=== PATIENT | male | born 1985 | race Two or more races ===

== ENCOUNTER 2017-01-31 10:16 | Emergency (ER) | payer SELFPAY ==
[2017-01-31 10:25] VITALS: BP 140/80
[2017-01-31] MEDS ORDERED: DIPH/PERTUSS(ACELL)/TETANUS VAC/PF 0.5 ML SYR (>=10YO) IM ONE (10:47)
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
== END 2017-01-31 11:33 | disposition home or self-care (01) ==
LOC: ER 10:16
DX: S61.212A Laceration without foreign body of right middle finger without damage to nail, initial encounter (principal); F17.210 Nicotine dependence, cigarettes, uncomplicated; W26.0XXA Contact with knife, initial encounter
CPT/HCPCS: 90471; 90715; 99282

== ENCOUNTER 2017-03-15 18:44 | Emergency (ER) | payer SELFPAY ==
[2017-03-15 19:17] LABS: ABSOLUTE BASOPHILS # (AUTO) 0.1 10^3/uL (0.0-0.2); ABSOLUTE EOSINOPHILS # (AUTO) 0.5 10^3/uL (0.0-0.6); ABSOLUTE LYMPHOCYTES (AUTO) 3.7 10^3/uL (0.5-4.7); ABSOLUTE MONOCYTES (AUTO) 0.9 10^3/uL (0.1-1.4); ABSOLUTE NEUT (AUTO) 6.6 10^3/uL (1.7-8.2); BASOPHILS % (AUTO) 0.7 % (0-2); EOSINOPHILS % (AUTO) 4.2 % (0-6); HEMATOCRIT 45.2 % (37.9-51.0); HEMOGLOBIN 14.7 g/dL (13.5-17.0); HGB HCT DIFFERENCE -1.1; LYMPHOCYTES % (AUTO) 31.7 % (13-45); MEAN CORPUSCULAR HEMOGLOBIN 29.3 pg (27.0-33.4); MEAN CORPUSCULAR HGB CONC 32.6 g/dL (32.0-36.0); MEAN CORPUSCULAR VOLUME 90 fl (80-97); MONOCYTES % (AUTO) 7.4 % (3-13); RED BLOOD COUNT 5.03 10^6/uL (4.35-5.55); RED CELL DISTRIBUTION WIDTH 13.9 % (11.5-14.0); WHITE BLOOD COUNT 11.7 10^3/uL (4.0-10.5)
[2017-03-15 19:28] LABS: APPEARANCE,URINE SLIGHTLY-CLOUDY; BILIRUBIN,URINE NEGATIVE (NEGATIVE); GLUCOSE, URINE NEGATIVE (NEGATIVE); KETONES,URINE NEGATIVE (NEGATIVE); LEUKOCYTE ESTERASE,URINE NEGATIVE (NEGATIVE); NITRITE,URINE NEGATIVE (NEGATIVE); PROTEIN,URINE 100 mg/dL (NEGATIVE); URINE SPECIFIC GRAVITY 1.026; UROBILINOGEN,URINE NEGATIVE mg/dL (<2.0)
[2017-03-15 19:34] LABS: ALANINE AMINOTRANSFERASE 68 U/L (21-72); ALKALINE PHOSPHATASE 82 U/L (38-126); ANION GAP 14 (5-19); ASPARTATE AMINO TRANSFERASE 30 U/L (17-59); BILIRUBIN,DIRECT 0.3 mg/dL (0.0-0.4); BILIRUBIN,TOTAL 0.6 mg/dL (0.2-1.3); BLOOD UREA NITROGEN 15 mg/dL (7-20); CALCIUM 10.4 mg/dL (8.4-10.2); CARBON DIOXIDE 27 mmol/L (22-30); CHLORIDE 104 mmol/L (98-107); CREATININE RESULT 1.03 mg/dL (0.52-1.25); GLUCOSE 107 mg/dL (75-110); POTASSIUM 4.6 mmol/L (3.6-5.0); TOTAL PROTEIN 8.5 g/dL (6.3-8.2)
[2017-03-15 19:35] LABS: ALCOHOL < 10 mg/dL (NONE DETECTED)
[2017-03-15 19:40] LABS: URINE BARBITURATES SCREEN NEGATIVE; URINE METHADONE SCREEN NEGATIVE; URINE OPIATES LOW NEGATIVE; URINE PHENCYCLIDINE SCREEN NEGATIVE
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
[2017-03-15] MEDS ORDERED: DIAZEPAM 5 MG TABLET PO ONE (20:49)
[2017-03-15] MEDS ORDERED: NICOTINE 21 MG/24 HR PATCH.TD24 TD ONE (20:49)
--- NOTE | 2017-03-15 21:42 | RADIOLOGY REPORT (SQ) ---
EXAM DESCRIPTION: HAND RIGHT 3 VIEWS COMPLETED DATE/TIME: 03/15/2017 9:23 pm REASON FOR STUDY: trauma COMPARISON: None. EXAM PARAMETERS: NUMBER OF VIEWS: Three views. TECHNIQUE: AP, lateral and oblique radiographic images acquired of the right hand. LIMITATIONS: None. FINDINGS: MINERALIZATION: Normal. BONES: No acute fracture or dislocation. No worrisome bone lesions. JOINTS: No effusions. SOFT TISSUES: No soft tissue swelling. No foreign body. OTHER: No other significant finding. IMPRESSION: NEGATIVE STUDY OF THE RIGHT HAND. NO RADIOGRAPHIC EVIDENCE OF ACUTE INJURY. TECHNICAL DOCUMENTATION: JOB ID: [id number] [employer]- All Rights Reserved
[2017-03-15] MEDS ORDERED: HALOPERIDOL 5 MG TABLET PO ONE (23:08)
[2017-03-16] MEDS ORDERED: HALOPERIDOL LACTATE INJ 5 MG/1 ML VIAL IM ONE (00:37)
[2017-03-16] MEDS ORDERED: HALOPERIDOL 5 MG TABLET PO ONE (00:38)
[2017-03-16] MEDS ORDERED: DIPHENHYDRAMINE HCL 50 MG CAPSULE PO ONE (00:39)
[2017-03-16] MEDS ORDERED: IBUPROFEN 600 MG TABLET PO ONE (01:43)
--- NOTE | 2017-03-16 08:05 | EKG REPORT ---
SEVERITY:- OTHERWISE NORMAL ECG - SINUS TACHYCARDIA : Confirmed by: Kenneth Mays MD 16-Mar-2017 08:04:44
--- NOTE | 2017-03-16 09:23 | ER Document Report ---
Doctor's Note Notes: 03/16/17 09:22 As the rounding physician for our psychiatric patients, I have reviewed the chart, vitals, lab work. Patient has been examined and noted to be . I am awaiting mental health in put. 03/16/17 09:[address] Thomas, we agree for discharge as patient is stable
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
[2017-03-16 12:48] VITALS: BP 130/95
== END 2017-03-16 12:43 | disposition home or self-care (01) ==
LOC: ER 18:44
DX: R45.851 Suicidal ideations (principal); S11.91XA Laceration without foreign body of unspecified part of neck, initial encounter; S69.91XA Unspecified injury of right wrist, hand and finger(s), initial encounter; X83.8XXA Intentional self-harm by other specified means, initial encounter; F11.99 Opioid use, unspecified with unspecified opioid-induced disorder; F14.90 Cocaine use, unspecified, uncomplicated
CPT/HCPCS: 36415; 80053; 80307; 81001; 85025; 93005; 93010; 99285

== ENCOUNTER 2017-08-11 21:28 | Emergency (ER) | payer SELFPAY ==
--- NOTE | 2017-08-11 23:51 | ER Document Report ---
ED General - General Mode of Arrival: Ambulatory Information source: Patient TRAVEL OUTSIDE OF THE [place] IN LAST 30 DAYS: No - HPI Onset: Other - I problem started a week and half ago back problem started 3 days ago Onset/Duration: Gradual Quality of pain: Pressure, Sharp - Back pain is sharp eye pain is pressure Severity: Moderate Pain Level: 3 Associated symptoms: Other - Low back pain decreased visual acuity blurry vision pain to the left eye Exacerbated by: Sitting, Movement, Walking Relieved by: Denies Similar symptoms previously: Yes - He has to the back pain noted to the visual problems Recently seen / treated by doctor: No - General Chief Complaint: Eye Problem Stated Complaint: LEFT EYE PAIN Time Seen by Provider: 08/11/17 23:12 Notes: 32-year-old male presents to ED for complaint of low back pain and visual problems. He states about a week and a half ago he started seeing black dots. He states he did not go to a doctor or have it checked out. He states then it slowly progressed until now his visual acuity has decreased greatly and he has a white film on his eye. He states everything is very blurry. He states he has no history of any visual problems. His other complaint is low back pain he states he fell about 3 days ago and is had pain just below his surgical incision ever since he fell. He states that he feels like the very bottom of his back is broken. States he has not been to see a physician for that problem either. (RADHA SAAB) - Related Data Allergies/Adverse Reactions: No Known Allergies Allergy (Verified 08/11/17 21:35) Past Medical History - General Information source: Patient - Social History Smoking Status: Current Every Day Smoker Cigarette use (# per day): Yes - Pack per day Chew tobacco use (# tins/day): No Smoking Education Provided: Yes - Less than 2 minutes Frequency of alcohol use: None Drug Abuse: Marijuana Occupation: [employer] Lives with: Parents Family History: Arthritis, Hyperlipidemia, Hypertension. denies: CAD, COPD, CVA , DM, Malignancy, Thyroid Disfunction Patient has suicidal ideation: No Patient has homicidal ideation: No - Past Medical History Cardiac Medical History: Reports: None Pulmonary Medical History: Reports: Hx Asthma EENT Medical History: Reports: None Neurological Medical History: Reports: None Endocrine Medical History: Reports: None Renal/ Medical History: Reports: None Malignancy Medical History: Reports None GI Medical History: Reports: None Musculoskeltal Medical History: Reports Hx Arthritis, Reports Hx Musculoskeletal Deformity, Reports Hx Musculoskeletal Trauma Skin Medical History: Reports None Psychiatric Medical History: Reports: Hx Anxiety, Hx Bipolar Disorder, Hx Depression Traumatic Medical History: Reports: None Infectious Medical History: Reports: None Past Surgical History: Reports: Hx Orthopedic Surgery - L4 L5 FUSION 2010 - Immunizations Immunizations up to date: Yes Hx Diphtheria, Pertussis, Tetanus Vaccination: Yes - unknown Review of Systems - Review of Systems Constitutional: No symptoms reported EENT: Eye pain - States he was seeing black dots now he has blurry vision with a white film to his left eye, Blurred vision Cardiovascular: No symptoms reported Respiratory: No symptoms reported Gastrointestinal: No symptoms reported Genitourinary: No symptoms reported Male Genitourinary: No symptoms reported Musculoskeletal: Back pain, Muscle pain, Muscle stiffness Skin: No symptoms reported Hematologic/Lymphatic: No symptoms reported Neurological/Psychological: No symptoms reported -: Yes All other systems reviewed and negative Physical Exam - Vital signs Interpretation: Normal - General General appearance: Appears well, Alert - HEENT Head: Normocephalic, Atraumatic Eyes: Normal Cornea: Other - White down across the cornea and pupil. No: Corneal ulcer, Dendrite, Flourescein stain uptake Eyelashes: Normal Pupils: PERRL Ears: Normal External canal: Normal Tympanic membrane: Normal Sinus: Normal Nasal: Normal Mouth/Lips: Normal Mucous membranes: Normal Pharynx: Normal Neck: Normal - Respiratory Respiratory status: No respiratory distress Chest status: Nontender Breath sounds: Normal Chest palpation: Normal - Cardiovascular Rhythm: Regular Heart sounds: Normal auscultation Murmur: No - Abdominal Inspection: Normal Distension: No distension Bowel sounds: Normal Tenderness: Nontender Organomegaly: No organomegaly - Back Back: Normal, Tender, Vertebra tenderness, Scars. No: Deformity/step-off, CVA tenderness, Scoliosis, Wounds - Extremities General upper extremity: Normal inspection, Nontender, Normal color, Normal ROM , Normal temperature General lower extremity: Normal inspection, Nontender, Normal color, Normal ROM , Normal temperature, Normal weight bearing. No: Georgie's sign - Neurological Neuro grossly intact: Yes Cognition: Normal Orientation: AAOx4 [place] Coma Scale Eye Opening: Spontaneous Chrissy Coma Scale Verbal: Oriented Chrissy Coma Scale Motor: Obeys Commands [place] Coma Scale Total: 15 Speech: Normal Motor strength normal: LUE, RUE, LLE, RLE Sensory: Normal - Psychological Associated symptoms: Normal affect, Normal mood - Skin Skin Temperature: Warm Skin Moisture: Dry Skin Color: Normal - Vital signs Vitals: Temp Pulse Resp BP Pulse Ox 98.3 F 96 18 134/99 H 98 08/11/17 21:35 08/11/17 21:35 08/11/17 21:35 08/11/17 21:35 08/11/17 21:35 Course - Diagnostic Test Radiology reviewed: Image reviewed, Reports reviewed - Re-evaluation Re-evalutation: 08/12/17 00:22 Patient is well-appearing. The a nurse practitioner asked me to evaluate patient's because of the patient's eye findings. Patient has been hypopyon on exam. This is consistent with eye infection. I did do fluorescein staining this patient does occasionally wear contact lenses. This did not show any ulceration or forcing uptake. I did do a slit-lamp examination. I do not see any clouding of the people. I do not see any dendritic type lesions. I will place patient Besivance. I informed the patient the importance of following up with missile pad mechanic as soon as possible. Dr. fofana is personnel psychologist. We will give him Dr. Mosley system to follow-up with. Informed to call Dr. Mosley for seeing the morning inform him he was seen in the ER and that he needs close follow-up. Patient encouraged to return to ER if he has any visual changes, worsening redness or swelling to his eye, or if he has any further concerns. 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 He says some grease did fall into his eye recently and this most likely was because some of his infection. She is also being seen by the nurse practitioner for back pain. She is continuing the workup of his back pain. Patient was able stand and walk in the room when I entered. Dictation of this chart was performed using voice recognition software; therefore, there may be some unintended grammatical errors. ([facility] FARRELL) - Vital Signs Vital signs: Temp Pulse Resp BP Pulse Ox 98.3 F 78 18 139/78 H 99 08/11/17 21:35 08/12/17 01:04 08/12/17 01:04 08/12/17 01:04 08/12/17 01:04 Discharge - Discharge Clinical Impression: Back pain Qualifiers: Back pain location: low back pain Chronicity: acute Back pain laterality: bilateral Sciatica presence: without sciatica Qualified Code(s): M54.5 - Low back pain Eye infection Qualifiers: Laterality: left Qualified Code(s): H44.002 - Unspecified purulent endophthalmitis, left eye Condition: Stable Disposition: HOME, SELF-CARE Additional Instructions: LOW BACK PAIN: Three out of every four people will have an episode of disabling back pain during their lifetime. Most commonly the pain is due to straining of the muscles and ligaments in the low back. Usual treatment includes: (1) Rest on a firm surface. Avoid lying on your stomach. (2) Ice pack the painful area. After a few days, gentle heat may be used intermittently to relax the area, or ice packs can be continued. (3) Medication may be needed -- muscle relaxers and antiinflammatory medicines are commonly used. (4) As the back improves, exercises are prescribed to strengthen the back and abdominal muscles. Your doctor will advise you on the proper care for your back at each stage in your recovery. You may be better in a few days -- or healing may take several weeks. If new symptoms of a "herniated disc" (radiation of pain, numbness, or tingling down the back of the leg or weakness in the leg) occur, you should be re-examined. Further testing may be necessary. Eye infection: You have an infection in your eye, "you have a bacterial infection in your eye needs to eyedrops 3 times a day. Please be sure to follow-up with the missile pad mechanic first thing in the morning to schedule the earliest appointment possible to have your eyes reevaluated. If you wear contact lenses, don't put them in your eyes until the infection is cleared and you are no longer using the drops (unless your doctor advises you otherwise). Should you develop increasing eye pain, severe swelling, decreased vision, or fail to improve as expected, please return for re-examination. EYEDROP USE: Eyedrops are most easily applied by pulling down on the cheek just below the lower eyelid. The lower lid will pop out to form a pouch into which you can drop the medicine. A small brief sting is not unusual, especially if the eye is reddened and irritated already. Use the drops exactly as recommended. You should see the doctor at once if there is a decrease in vision, swelling of the eye, or an increase in discomfort. ANTIBIOTIC THERAPY: You have been given an antibiotic prescription. It's important that you take all the medication, unless instructed otherwise by your physician. Failure to complete the entire course can result in relapse of your condition. Common side effects of antibiotics include nausea, intestinal cramping, or diarrhea. Women may develop vaginal yeast infections, and babies can get yeast (thrush) in the mouth following the use of antibiotics. Contact your physician if you develop significant side effects from this medication. Allergy to this antibiotic can result in hives, wheezing, faintness, or itching. If symptoms of allergy occur, stop the medication and call the doctor. Anti-Inflammatory Medication You have received a prescription for an antiinflammatory agent. This is an excellent, safe drug for pain control. In addition, it has potent antiinflammatory effects which are beneficial, especially in the treatment of injuries, arthritis, or tendonitis. It's best to take this medicine with food. Persons with ulcer disease or allergy to aspirin should notify their physician of this before taking this drug. Take the medication exactly as prescribed. Don't take additional doses unless instructed to do so by your doctor. If you develop wheezing, shortness of breath, hives, faintness, stomach pain, vomiting, or dark black stools, return for re-evaluation at once. Stretching Exercises for the Back The physician has recommended that you begin stretching exercises for your back. These are often used even while the back is painful. However, you should notify the physician if the activities seem to increase your pain. PELVIC TILT: Lie flat on your back with knees bent. Tighten your stomach and buttock muscles so it flattens your lower back against the floor. Hold 10 seconds. Repeat 10 times, twice daily. KNEE RAISE: Lying on the back with knees bent, raise one knee to your chest, then the other. Hold both knees against the chest 10 seconds, then lower one knee at a time. Repeat 10 times, twice daily. PARTIAL TRUNK RAISE: Lie face down, arms at your sides. Keeping your waist on the floor, use your arms raise your chest up. Support yourself on your elbows for 30 seconds. Repeat twice daily, increasing the time to two minutes as you recover. Oral Narcotic Medication You have been given a [place] dispense pack for pain control. This medication is a narcotic. It's best taken with food, as nausea can result if taken on an empty stomach. Don't operate machinery or drive within six hours of taking this medication. Do not combine this medicine with alcohol, or with any medication which can cause sedation (such as cold tablets or sleeping pills) unless you get permission from the physician. Narcotics tend to cause constipation. If possible, drink plenty of fluids and eat a diet high in fiber and fruits. ICE PACKS: Apply ice packs frequently against the painful area. Many different schedules are recommended, such as "20 minutes on, 20 minutes off" or "one hour ice, two hours rest." If you need to work, you may need to go longer between ice treatments. You should plan to have the area ice packed AT LEAST one fourth of the time. The ice should be applied over the wrap, tape, or splint, or over a layer of cloth -- not directly against the skin. Some ice bags have a built-in cloth and can be put directly on the skin. WARM PACKS: After approximately two days, apply gentle heat (such as a heating pad or hot water bottle) for about 20 to 30 minutes about every two hours -- at least four times daily. Warmth and elevation will help you make a more rapid recovery , and will ease the pain considerably. Do not use HOT heat, and never apply heat for longer than 30 minutes. The continuous heat can invisibly damage skin and muscles -- even when no burn is seen on the surface. Damaged muscles can make you MORE sore. FOLLOW-UP CARE: If you have been referred to a physician for follow-up care, call the physician s office for an appointment as you were instructed or within the next two days. If you experience worsening or a significant change in your symptoms, notify the physician immediately or return to the Emergency Department at any time for re-evaluation. Prescriptions: Besifloxacin HCl [Besivance Drops] 1 drop LFT_EYE TID #1 bottle Forms: Elevated Blood Pressure, Smoking Cessation Education, Return to Work Referrals: MÓNICA MOSLEY MD [ACTIVE STAFF] - 08/12/17
[2017-08-12] MEDS ORDERED: TETRACAINE HCL 0.5% OPH SOLN 2 ML OS ONE (00:05)
[2017-08-12] MEDS ORDERED: TETRACAINE HCL 0.5% OPH SOLN 2 ML ONE (00:07)
[2017-08-12] MEDS ORDERED: BESIFLOXACIN HCL 0.6% OPH SUSP 5 ML BOTTLE OS ONE (00:20)
--- NOTE | 2017-08-12 00:24 | RADIOLOGY REPORT (SQ) ---
EXAM DESCRIPTION: L SPINE WHOLE CLINICAL HISTORY: 32 years, Male, pain lower back since fall 3 days ago COMPARISON: None. NUMBER OF VIEWS: Five. TECHNIQUE: AP, lateral, and obliques. LIMITATIONS: None. FINDINGS: L4-S1 posterior hardware fusion and intervertebral disc replacement. Normal alignment and curvature. Minimal apparent T12 anterior vertebral wedging unknown chronicity. IMPRESSION: As above. 2010 [employer]- All Rights Reserved
[2017-08-12] MEDS ORDERED: HYDROCODONE/ACETAMINOPHEN 5-325 MG 6 TAB/DSPK PO PRN (00:54)
[2017-08-12 01:05] VITALS: BP 139/78
== END 2017-08-12 01:04 | disposition home or self-care (01) ==
LOC: ER 21:28
DX: H44.002 Unspecified purulent endophthalmitis, left eye (principal); M54.5 Low back pain; H57.12 Ocular pain, left eye; F17.210 Nicotine dependence, cigarettes, uncomplicated
CPT/HCPCS: 72110; 99283

== ENCOUNTER 2017-11-24 08:58 | Emergency (ER) | payer SELFPAY ==
[2017-11-24 09:19] VITALS: BP 128/90
--- NOTE | 2017-11-24 10:48 | RADIOLOGY REPORT (SQ) ---
EXAM DESCRIPTION: L SPINE 2 VIEWS COMPLETED DATE/TIME: 11/24/2017 10:14 am REASON FOR STUDY: low back pain COMPARISON: 08/11/2017 lumbar spine five views, 09/20/2008 lumbar spine five views NUMBER OF VIEWS: Two views. TECHNIQUE: AP and lateral radiographic images acquired of the lumbar spine. LIMITATIONS: None. FINDINGS: MINERALIZATION: Normal. SEGMENTATION: There are short ribs/long transverse processes at the T12 level. Most inferior well-de veloped disc space is L5-S1 which is fused with hardware. ALIGNMENT: Normal. VERTEBRAE: Maintained height. No fracture or worrisome bone lesion. DISCS: Post discectomy and fusion with disc space prosthesis, transpedicular screws and dorsal fixati on plates at L4-5 and L5-S1. Old bilateral laminectomy defects at these levels. Mild disc space los s of height at L3-4. POSTERIOR ELEMENTS: Bilateral laminectomy defects at the L4-5 and L5-S1 level HARDWARE: Fusion hardware at L4-5 and L5-S1 PARASPINAL SOFT TISSUES: Normal. PELVIS: Not included in the field of view OTHER: No other significant finding. IMPRESSION: No acute fracture or malalignment. Mild disc space loss of height at L3-4. Post fusion at L4-5 and L5-S1 TECHNICAL DOCUMENTATION: JOB ID: [id number] [employer]- All Rights Reserved Reading location - IP/workstation name: [email or web address]
[2017-11-24] MEDS ORDERED: CYCLOBENZAPRINE HCL 10 MG TABLET PO ONE (10:50)
[2017-11-24] MEDS ORDERED: DEXAMETHASONE SOD PHOS INJ 10 MG/1 ML VIAL IM ONE (10:50)
[2017-11-24] MEDS ORDERED: KETOROLAC TROMETHAMINE 60 MG/2 ML SDV IM ONE (10:50)
[2017-11-24] MEDS ORDERED: LIDOCAINE 5% (700 MG) TRANSDERMAL ADH..PATCH TP ONE (10:50)
--- NOTE | 2017-11-24 10:52 | ER Document Report ---
ED Neck/Back Problem - General Chief Complaint: Back Pain Stated Complaint: LOWER BACK PAIN Time Seen by Provider: 11/24/17 09:50 Mode of Arrival: Ambulatory Information source: Patient Notes: 32-year-old male presented to ED for complaint of back pain for week radiating to the right side legs. History of lumbar fusion 2010. States that at times he feels like he has got elephant sitting on his back. No incontinence, no loss of control of bowel or bladder, no loss control of the lower extremities, no loss of sensation to the lower extremities, no saddle anesthesia. Able to walk with the even steady gait once he has stood up. TRAVEL OUTSIDE OF THE [place] IN LAST 30 DAYS: No - HPI Patient complains to provider of: Lower back Onset: Last week Where: Home, Indoors Timing: Still present Quality of pain: Achy, Sharp Severity: Severe Pain Level: 5 Context: Bending Recent injury: No Associated symptoms: Like prior neck/back pain, Radiation to leg, Lower back pain. denies: Incontinence, Motor loss, Numbness/tingling, Sensory loss, Sweaty , Unable to urinate, Upper back pain Exacerbated by: Movement of trunk, Sitting position Relieved by: Nothing Similar symptoms previously: Yes Recently seen / treated by doctor: No - Related Data Allergies/Adverse Reactions: No Known Allergies Allergy (Verified 11/24/17 08:59) Past Medical History - General Information source: Patient - Social History Smoking Status: Current Every Day Smoker Cigarette use (# per day): Yes Chew tobacco use (# tins/day): No Smoking Education Provided: Yes - 4 minutes Frequency of alcohol use: None Drug Abuse: None Lives with: Family Family History: Arthritis, Hyperlipidemia, Hypertension. denies: CAD, COPD, CVA , DM, Malignancy, Thyroid Disfunction Patient has suicidal ideation: No Patient has homicidal ideation: No - Past Medical History Cardiac Medical History: Reports: None Pulmonary Medical History: Reports: Hx Asthma EENT Medical History: Reports: None Neurological Medical History: Reports: None Endocrine Medical History: Reports: None Renal/ Medical History: Reports: None Malignancy Medical History: Reports None GI Medical History: Reports: None Musculoskeltal Medical History: Reports Hx Arthritis, Reports Hx Musculoskeletal Deformity, Reports Hx Musculoskeletal Trauma Skin Medical History: Reports None Psychiatric Medical History: Reports: Hx Anxiety, Hx Bipolar Disorder, Hx Depression Traumatic Medical History: Reports: None Infectious Medical History: Reports: None Past Surgical History: Reports: Hx Orthopedic Surgery - L4 L5 FUSION 2011 - Immunizations Immunizations up to date: Yes Hx Diphtheria, Pertussis, Tetanus Vaccination: Yes - unknown Review of Systems - Review of Systems Constitutional: No symptoms reported EENT: No symptoms reported Cardiovascular: No symptoms reported Respiratory: No symptoms reported Gastrointestinal: No symptoms reported. denies: Diarrhea, Constipation, Fecal incontinence Genitourinary: No symptoms reported. denies: Incontinence, Retention Male Genitourinary: No symptoms reported Musculoskeletal: No symptoms reported Skin: No symptoms reported Hematologic/Lymphatic: No symptoms reported Neurological/Psychological: No symptoms reported -: Yes All other systems reviewed and negative Physical Exam - Vital signs Vitals: Temp Pulse Resp BP Pulse Ox 98.0 F 83 20 128/90 H 99 11/24/17 09:18 11/24/17 09:18 11/24/17 09:18 11/24/17 09:18 11/24/17 09:18 Interpretation: Normal - General General appearance: Appears well, Alert - HEENT Head: Normocephalic, Atraumatic Eyes: Normal Pupils: PERRL - Respiratory Respiratory status: No respiratory distress Chest status: Nontender Breath sounds: Normal Chest palpation: Normal - Cardiovascular Rhythm: Regular Heart sounds: Normal auscultation Murmur: No - Abdominal Inspection: Normal Distension: No distension Bowel sounds: Normal Tenderness: Nontender Organomegaly: No organomegaly - Back Back: Normal, Tender, Scars. No: Deformity/step-off, CVA tenderness, Vertebra tenderness, Scoliosis, Wounds - Extremities General upper extremity: Normal inspection, Nontender, Normal color, Normal ROM , Normal temperature General lower extremity: Normal inspection, Nontender, Normal color, Normal ROM , Normal temperature, Normal weight bearing. No: Georgie's sign - Neurological Neuro grossly intact: Yes Cognition: Normal Orientation: AAOx4 Chrissy Coma Scale Eye Opening: Spontaneous [place] Coma Scale Verbal: Oriented [place] Coma Scale Motor: Obeys Commands [place] Coma Scale Total: 15 Speech: Normal Motor strength normal: LUE, RUE, LLE, RLE Sensory: Normal - Psychological Associated symptoms: Normal affect, Normal mood - Skin Skin Temperature: Warm Skin Moisture: Dry Skin Color: Normal Course - Re-evaluation Re-evalutation: 11/24/17 21:57 X-ray discussed with patient. Patient was treated with Toradol Decadron Lidoderm Flexeril. Patient was instructed to stop his marijuana and cocaine as this was not helping his back pain. Patient was also instructed to follow-up with his primary doctor and get a back specialist. - Vital Signs Vital signs: Temp Pulse Resp BP Pulse Ox 98.0 F 83 20 128/90 H 99 11/24/17 09:18 11/24/17 09:18 11/24/17 09:18 11/24/17 09:18 11/24/17 09:18 - Diagnostic Test Radiology reviewed: Image reviewed, Reports reviewed Discharge - Discharge Clinical Impression: Low back pain Qualifiers: Chronicity: acute Back pain laterality: left Sciatica presence: with sciatica Sciatica laterality: sciatica of left side Qualified Code(s): M54.42 - Lumbago with sciatica, left side Condition: Stable Disposition: HOME, SELF-CARE Additional Instructions: LOW BACK PAIN: Three out of every four people will have an episode of disabling back pain during their lifetime. Most commonly the pain is due to straining of the muscles and ligaments in the low back. Usual treatment includes: (1) Rest on a firm surface. Avoid lying on your stomach. (2) Ice pack the painful area. After a few days, gentle heat may be used intermittently to relax the area, or ice packs can be continued. (3) Medication may be needed -- muscle relaxers and antiinflammatory medicines are commonly used. (4) As the back improves, exercises are prescribed to strengthen the back and abdominal muscles. Your doctor will advise you on the proper care for your back at each stage in your recovery. You may be better in a few days -- or healing may take several weeks. If new symptoms of a "herniated disc" (radiation of pain, numbness, or tingling down the back of the leg or weakness in the leg) occur, you should be re-examined. Further testing may be necessary. MUSCLE RELAXERS: Muscle relaxing medications are usually prescribed for acute muscle spasm or injury to the neck and back. They are often combined with antiinflammatory pain medication for increased relief. You may stop the muscle relaxer when the pain and stiffness have improved. Start the medication again if spasms recur. Muscle relaxers may cause drowsiness, especially with the first dose. Do not operate machinery or drive while under the effects of the medication. Most muscle relaxers last up to 24 hours. Do not combine the medication with alcohol. Stretching Exercises for the Back The physician has recommended that you begin stretching exercises for your back. These are often used even while the back is painful. However, you should notify the physician if the activities seem to increase your pain. PELVIC TILT: Lie flat on your back with knees bent. Tighten your stomach and buttock muscles so it flattens your lower back against the floor. Hold 10 seconds. Repeat 10 times, twice daily. KNEE RAISE: Lying on the back with knees bent, raise one knee to your chest, then the other. Hold both knees against the chest 10 seconds, then lower one knee at a time. Repeat 10 times, twice daily. PARTIAL TRUNK RAISE: Lie face down, arms at your sides. Keeping your waist on the floor, use your arms raise your chest up. Support yourself on your elbows for 30 seconds. Repeat twice daily, increasing the time to two minutes as you recover. Toradol Injection You have been given an injection of ketorolac tromethamine (Toradol). This is an excellent, safe drug for pain control. It also has potent antiinflammatory action. You should have significant pain relief within about one hour. Toradol is not addicting and is non-sedating. It does not interfere with driving or work. Call or return if you develop itching, hives, shortness of breath, or rash. STEROID MEDICATION: You have been given an injection of medicine of the cortisone/steroid class. This medication is used to control inflammation or allergy. It is often continued as a pill for a short period of time, until the acute process subsides. There are usually no side effects from short-term use of cortisone-like medications. Some persons feel an increased sense of well-being and are not sleepy at bedtime. Long-term use of cortisone medications is best avoided, unless required for a severe condition. If your condition does not remit, or relapses after the course of corticosteroid medication, you should consult your physician. ICE PACKS: Apply ice packs frequently against the painful area. Many different schedules are recommended, such as "20 minutes on, 20 minutes off" or "one hour ice, two hours rest." If you need to work, you may need to go longer between ice treatments. You should plan to have the area ice packed AT LEAST one fourth of the time. The ice should be applied over the wrap, tape, or splint, or over a layer of cloth -- not directly against the skin. Some ice bags have a built-in cloth and can be put directly on the skin. WARM PACKS: After approximately two days, apply gentle heat (such as a heating pad or hot water bottle) for about 20 to 30 minutes about every two hours -- at least four times daily. Warmth and elevation will help you make a more rapid recovery , and will ease the pain considerably. Do not use HOT heat, and never apply heat for longer than 30 minutes. The continuous heat can invisibly damage skin and muscles -- even when no burn is seen on the surface. Damaged muscles can make you MORE sore. FOLLOW-UP CARE: If you have been referred to a physician for follow-up care, call the physician s office for an appointment as you were instructed or within the next two days. If you experience worsening or a significant change in your symptoms, notify the physician immediately or return to the Emergency Department at any time for re-evaluation. Prescriptions: Cyclobenzaprine HCl [Flexeril 10 mg Tablet] 10 mg PO TIDP PRN #15 tab PRN Reason: Prednisone 10 mg PO DAILY #21 tablet Forms: Elevated Blood Pressure, Smoking Cessation Education, Return to Work
[2017-11-24 11:31] LABS: APPEARANCE,URINE CLEAR; BILIRUBIN,URINE NEGATIVE (NEGATIVE); COLOR,URINE STRAW; GLUCOSE, URINE NEGATIVE (NEGATIVE); KETONES,URINE NEGATIVE (NEGATIVE); LEUKOCYTE ESTERASE,URINE NEGATIVE (NEGATIVE); NITRITE,URINE NEGATIVE (NEGATIVE); PROTEIN,URINE NEGATIVE (NEGATIVE); URINE SPECIFIC GRAVITY 1.008; UROBILINOGEN,URINE NEGATIVE mg/dL (<2.0)
[2017-11-24 11:45] LABS: URINE AMPHETAMINES SCREEN NEGATIVE; URINE BARBITURATES SCREEN NEGATIVE; URINE BENZODIAZEPINES SCREEN NEGATIVE; URINE COCAINE SCREEN UNCONFIRMED POSITIVE; URINE MARIJUANA (THC) SCREEN UNCONFIRMED POSITIVE; URINE METHADONE SCREEN NEGATIVE; URINE PHENCYCLIDINE SCREEN NEGATIVE
== END 2017-11-24 12:25 | disposition home or self-care (01) ==
LOC: ER 08:58
DX: M54.42 Lumbago with sciatica, left side (principal); Z98.1 Arthrodesis status; J45.909 Unspecified asthma, uncomplicated; F17.210 Nicotine dependence, cigarettes, uncomplicated; Z71.6 Tobacco abuse counseling
CPT/HCPCS: 99283; 96372; 81001; 80307; 72100; J1885; J1100

== ENCOUNTER 2018-01-23 14:26 | Emergency (ER) | payer OTHER ==
[2018-01-23] MEDS ORDERED: KETOROLAC TROMETHAMINE 60 MG/2 ML SDV IM ONE (15:19)
[2018-01-23] MEDS ORDERED: DEXAMETHASONE SOD PHOS INJ 10 MG/1 ML VIAL IM ONE (15:19)
[2018-01-23] MEDS ORDERED: LORAZEPAM INJ 2 MG/1 ML VIAL IM ONE (16:56)
[2018-01-23] MEDS ORDERED: HYDROMORPHONE HCL INJ/PF 2 MG/ML AMPULE IV ONE ×2 (18:08→21:44)
--- NOTE | 2018-01-23 18:08 | ER Document Report ---
ED General - General Chief Complaint: Leg Pain Stated Complaint: BACK PAIN Time Seen by Provider: 01/23/18 15:12 Mode of Arrival: Medic Information source: Patient, Law Enforcement, Emergency Med Personnel Notes: 32-year-old male history of L4-L5 L5-S1 fusion presents with complaints of left leg weakness numbness and low back pain. Patient notes the back pain has been ongoing for the past week worsened today. Patient denies any trauma denies any loss of bowel or bladder function does admit to weakness in the leg TRAVEL OUTSIDE OF THE [place] IN LAST 30 DAYS: No - HPI Onset: Last week Onset/Duration: Persistent Quality of pain: Sharp Severity: Moderate Pain Level: 2 Associated symptoms: Body/muscle aches Exacerbated by: Movement Relieved by: Denies Similar symptoms previously: Yes Recently seen / treated by doctor: No - Related Data Allergies/Adverse Reactions: No Known Allergies Allergy (Verified 01/23/18 14:35) Past Medical History - Social History Smoking Status: Current Every Day Smoker Cigarette use (# per day): Yes Chew tobacco use (# tins/day): No Smoking Education Provided: No Frequency of alcohol use: None Drug Abuse: None Family History: Arthritis, Hyperlipidemia, Hypertension. denies: CAD, COPD, CVA , DM, Malignancy, Thyroid Disfunction Patient has suicidal ideation: No Patient has homicidal ideation: No Pulmonary Medical History: Reports: Hx Asthma Renal/ Medical History: Denies: Hx Peritoneal Dialysis Musculoskeltal Medical History: Reports Hx Arthritis, Reports Hx Musculoskeletal Deformity, Reports Hx Musculoskeletal Trauma Psychiatric Medical History: Reports: Hx Anxiety, Hx Bipolar Disorder, Hx Depression Past Surgical History: Reports: Hx Orthopedic Surgery - L4 L5 FUSION 2010 - Immunizations Immunizations up to date: Yes Hx Diphtheria, Pertussis, Tetanus Vaccination: Yes - unknown Review of Systems - Review of Systems Notes: REVIEW OF SYSTEMS: CONSTITUTIONAL : Denies fever, chills, or sweats. Denies recent illness. EENT: Denies eye, ear, throat, or mouth pain or symptoms. Denies nasal or sinus congestion or discharge. Denies throat, tongue, or mouth swelling or difficulty swallowing. CARDIOVASCULAR: Denies chest pain. Denies palpitations or racing or irregular heart beat. Denies ankle edema. RESPIRATORY: Denies cough, cold, or chest congestion. Denies shortness of breath, difficulty breathing, or wheezing. GASTROINTESTINAL: Denies abdominal pain or distention. Denies nausea, vomiting , or diarrhea. Denies blood in vomitus, stools, or per rectum. Denies black, tarry stools. Denies constipation. GENITOURINARY: Denies difficulty urinating, painful urination, burning, frequency, blood in urine, or discharge. MUSCULOSKELETAL: Admits to left leg pain back pain numbness SKIN: Denies rash, lesions or sores. HEMATOLOGIC : Denies easy bruising or bleeding. LYMPHATIC: Denies swollen, enlarged glands. NEUROLOGICAL: Admits to weakness in the left leg PSYCHIATRIC: Denies anxiety or stress. Denies depression, suicidal ideation, or homicidal ideation. ALL OTHER SYSTEMS REVIEWED AND NEGATIVE. Dictation was performed using [employer] voice recognition software PHYSICAL EXAMINATION: GENERAL: Well-appearing, well-nourished and in mild distress. HEAD: Atraumatic, normocephalic. EYES: Pupils equal round and reactive to light, extraocular movements intact, sclera anicteric, conjunctiva are normal. ENT: Nares patent, oropharynx clear without exudates. Moist mucous membranes. NECK: Normal range of motion, supple without lymphadenopathy LUNGS: Breath sounds clear to auscultation bilaterally and equal. No wheezes rales or rhonchi. HEART: Regular rate and rhythm without murmurs ABDOMEN: Soft, nontender, nondistended abdomen. No guarding, no rebound. No masses appreciated. Musculoskeletal: Tenderness upon palpation of the L3-L4-L5 region. NEUROLOGICAL: Weakness noted in the left lower extremity mild PSYCH: Normal mood, normal affect. SKIN: Warm, Dry, normal turgor, no rashes or lesions noted. Physical Exam - Vital signs Vitals: Temp Pulse Resp BP Pulse Ox 97.9 F 92 16 103/77 100 01/23/18 14:34 01/23/18 14:34 01/23/18 14:34 01/23/18 14:34 01/23/18 14:34 Course - Re-evaluation Re-evalutation: Patient's pain symptoms did not improve with symptomatic medication therefore MRI has been ordered 01/23/18 18:08 [place] paged for transfer and other findings concerning for cord compression 01/23/18 18:13 patient mother talked to and explained 01/23/18 18:27 Dr Wood accepts patient for transfer 01/23/18 18:58 01/23/18 19:15 Dr Wood wants patient admitted to medicine as there is hx of iv heroin use concern for discitis 01/23/18 19:16 01/23/18 19:54 Dr Sharma hospitalist [facility] accepts they do not want antibiotics given 01/23/18 22:22 Patient given another dose of pain control 01/23/18 22:23 - Vital Signs Vital signs: Temp Pulse Resp BP Pulse Ox 98.0 F 133 H 18 133/87 H 99 01/23/18 21:49 01/23/18 21:49 01/23/18 21:49 01/23/18 21:49 01/23/18 21:49 - Laboratory Result Diagrams: 01/23/18 18:50 01/23/18 18:50 Laboratory results interpreted by me: 01/23/18 01/23/18 18:50 18:50 WBC 12.2 H Seg Neutrophils % 88.4 H Lymphocytes % 9.8 L Monocytes % 1.2 L Absolute Neutrophils 10.8 H Glucose 131 H Calcium 10.7 H Total Protein 8.6 H - Diagnostic Test Radiology reviewed: Image reviewed - MRI lumbar spine notes cord compression, Reports reviewed Discharge - Discharge Clinical Impression: Spinal cord compression Condition: Stable Disposition: [facility]
--- NOTE | 2018-01-23 18:10 | RADIOLOGY REPORT (SQ) ---
EXAM DESCRIPTION: MRI LUMBAR SPINE WITHOUT COMPLETED DATE/TIME: 01/23/2018 5:41 pm REASON FOR STUDY: low back pain COMPARISON: None. TECHNIQUE: Sagittal and Axial imaging includes T1, T2, STIR and gradient echo sequences. Coronal T2/ HASTE imaging. LIMITATIONS: None. FINDINGS: VISUALIZED UPPER ABDOMEN: Limited evaluation. No acute or suspicious findings suggested. SEGMENTATION: No transitional anatomy. The lowest well-developed disc space is labeled L5-S1. ALIGNMENT: Anatomic. VERTEBRAE: Intact. BONE MARROW: Significant bone marrow edema involving the L3 and L4 vertebral bodies. Marrow signal i s otherwise normal. DISC SIGNAL: Abnormal disc signal at the L3 level. POSTERIOR ELEMENTS: Status post laminectomy from the L4 through S1 levels. Otherwise intact. HARDWARE: Posterior interbody fusion hardware at the L4 through S1 levels. No gross hardware complic ation. CORD AND CONUS: Normal in size and signal intensity. Conus at the appropriate level. SOFT TISSUES: No aortic aneurysm seen. No bulky retroperitoneal adenopathy or mass. No paraspinal mas s or fluid. L1-L2: No significant spinal stenosis or exit foraminal stenosis. L2-L3: No significant spinal stenosis or exit foraminal stenosis. L3-L4: High-grade spinal canal stenosis and severe bilateral neural foraminal narrowing secondary to combination of extruded disc material, ligamentum flavum hypertrophy, and facet arthropathy. L4-L5: No significant residual narrowing identified. L5-S1: No significant residual narrowing identified. LOWER THORACIC: Incompletely imaged. No stenosis seen. SACRUM: Visualized upper sacrum intact. OTHER: No other significant findings. IMPRESSION: POSTOPERATIVE CHANGE EXTENDING FROM THE L4 THROUGH S1 LEVELS WITHOUT GROSS COMPLICATION. SEVERE SPINAL CANAL STENOSIS AND BILATERAL NEURAL FORAMINAL NARROWING AT THE L3-L4 LEVEL IN THE SETTI NG OF EXTRUDED DISC MATERIAL, LIGAMENTUM FLAVUM HYPERTROPHY, AND FACET ARTHROPATHY. NEUROSURGICAL CO NSULTATION IS RECOMMENDED. MARROW EDEMA INVOLVING THE L3 AND L4 VERTEBRAL BODIES PRESUMABLY REACTIVE HOWEVER SUPERIMPOSED INFECT ION CANNOT BE ENTIRELY EXCLUDED. CORRELATE WITH LABORATORY VALUES. COMMENT: Pertinent findings on the imaging study reported to DEMETRICE OLGUIN DO at18:03 on 01/24/20. TECHNICAL DOCUMENTATION: JOB ID: [id number] [employer]- All Rights Reserved Reading location - IP/workstation name: [email or web address]
[2018-01-23 19:05] LABS: ABSOLUTE BASOPHILS # (AUTO) 0.1 10^3/uL (0.0-0.2); ABSOLUTE LYMPHOCYTES (AUTO) 1.2 10^3/uL (0.5-4.7); ABSOLUTE MONOCYTES (AUTO) 0.1 10^3/uL (0.1-1.4); ABSOLUTE NEUT (AUTO) 10.8 10^3/uL (1.7-8.2); BASOPHILS % (AUTO) 0.4 % (0-2); EOSINOPHILS % (AUTO) 0.2 % (0-6); HEMATOCRIT 42.4 % (37.9-51.0); HEMOGLOBIN 14.5 g/dL (13.5-17.0); LYMPHOCYTES % (AUTO) 9.8 % (13-45); MEAN CORPUSCULAR HEMOGLOBIN 29.6 pg (27.0-33.4); MEAN CORPUSCULAR HGB CONC 34.1 g/dL (32.0-36.0); MEAN CORPUSCULAR VOLUME 87 fl (80-97); MONOCYTES % (AUTO) 1.2 % (3-13); PLATELET COUNT 400 10^3/uL (150-450); RED BLOOD COUNT 4.89 10^6/uL (4.35-5.55); RED CELL DISTRIBUTION WIDTH 13.7 % (11.5-14.0); SEGMENTED NEUTROPHILS % (AUTO) 88.4 % (42-78); TOTAL CELLS COUNTED % (AUTO) 100 %; WHITE BLOOD COUNT 12.2 10^3/uL (4.0-10.5)
[2018-01-23 19:30] LABS: ALANINE AMINOTRANSFERASE 45 U/L (21-72); ALBUMIN 4.3 g/dL (3.5-5.0); ALKALINE PHOSPHATASE 113 U/L (38-126); ANION GAP 13 (5-19); ASPARTATE AMINO TRANSFERASE 21 U/L (17-59); BILIRUBIN,DIRECT 0.3 mg/dL (0.0-0.4); BILIRUBIN,TOTAL 0.3 mg/dL (0.2-1.3); BLOOD UREA NITROGEN 17 mg/dL (7-20); CALCIUM 10.7 mg/dL (8.4-10.2); CARBON DIOXIDE 30 mmol/L (22-30); CHLORIDE 101 mmol/L (98-107); GLUCOSE 131 mg/dL (75-110); POTASSIUM 4.2 mmol/L (3.6-5.0); SODIUM 143.8 mmol/L (137-145); TOTAL PROTEIN 8.6 g/dL (6.3-8.2)
[2018-01-24 00:58] VITALS: BP 124/83
== END 2018-01-23 23:00 | disposition short-term general hospital (02) ==
LOC: ER 14:26
DX: G95.20 Unspecified cord compression (principal); M79.605 Pain in left leg; M54.5 Low back pain; M79.1 Myalgia; F17.210 Nicotine dependence, cigarettes, uncomplicated; Z98.1 Arthrodesis status
CPT/HCPCS: 96376; 99285; 96372; 96374; 36415; 87040; 85025; 80053; 72148; J1885; J1170; J1100

== ENCOUNTER 2018-04-13 20:42 | Emergency (ER) | payer SELFPAY ==
[2018-04-13] MEDS ORDERED: OXYCODONE-ACETAMINOPHEN 5-325 MG TABLET PO ONE (21:47)
--- NOTE | 2018-04-13 21:51 | ER Document Report ---
ED Medical Screen (RME) - General Chief Complaint: Back Pain Stated Complaint: BACK PAIN Time Seen by Provider: 04/13/18 21:45 Mode of Arrival: Wheelchair Information source: Patient Notes: Patient is an otherwise healthy 32-year-old male who presents with chief complaint of possible fungal infection in his spine. Patient reports he was discharged from [facility] approximately 2 weeks ago. He reports he was stayed there for approximately 4-6 weeks and at which point he was diagnosed with a spinal fungal infection. Patient was to be taking fluconazole 400 mg daily, they sent him home with a several week supply however patient reports he has now run out and cannot afford to have them refilled. Patient reports that he now has low back pain, right hip pain and right testicular pain. He also reports of the right testicle is swollen. Patient denies any fevers. 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 Exam: Tenderness to palpation to lumbar spine. I have greeted and performed a rapid initial assessment of this patient. A comprehensive ED assessment and evaluation of the patient, analysis of test results and completion of the medical decision making process will be conducted by additional ED providers. Dictation of this chart was performed using voice recognition software; therefore, there may be some unintended grammatical errors. TRAVEL OUTSIDE OF THE [place] IN LAST 30 DAYS: No - Related Data Allergies/Adverse Reactions: No Known Allergies Allergy (Verified 01/23/18 14:35) Past Medical History - Social History Frequency of alcohol use: None Drug Abuse: None Pulmonary Medical History: Reports: Hx Asthma Renal/ Medical History: Denies: Hx Peritoneal Dialysis Musculoskeltal Medical History: Reports Hx Arthritis, Reports Hx Musculoskeletal Deformity, Reports Hx Musculoskeletal Trauma Psychiatric Medical History: Reports: Hx Anxiety, Hx Bipolar Disorder, Hx Depression Past Surgical History: Reports: Hx Orthopedic Surgery - L4 L5 FUSION 2010 - Immunizations Immunizations up to date: Yes Hx Diphtheria, Pertussis, Tetanus Vaccination: Yes - unknown Physical Exam - Vital signs Vitals: Temp Pulse Resp BP Pulse Ox 99.2 F 110 H 20 142/97 H 100 04/13/18 21:05 04/13/18 21:05 04/13/18 21:05 04/13/18 21:05 04/13/18 21:05 Course - Vital Signs Vital signs: Temp Pulse Resp BP Pulse Ox 99.2 F 110 H 20 142/97 H 100 04/13/18 21:05 04/13/18 21:05 04/13/18 21:05 04/13/18 21:05 04/13/18 21:05
--- NOTE | 2018-04-13 23:01 | RADIOLOGY REPORT (SQ) ---
EXAM DESCRIPTION: U/S SCROTUM W/DOPPLER COMPLETED DATE/TIME: 04/13/2018 10:43 pm REASON FOR STUDY: eval for torsion COMPARISON: 07/22/2012 TECHNIQUE: Static and realtime [place] scale imaging of the scrotum and testes. Selected color Doppler and spectral images recorded to document blood flow. LIMITATIONS: Please note there is a demographics mismatch warning. FINDINGS: RIGHT: TESTICLE: Normal size, 3.6 x 2.1 x 3.7 cm. Normal echotexture. Normal blood flow. No mass. Multipl e small calcifications. EPIDIDYMIS: Hypervascular. 1 x 1 x 1.8 cm. HYDROCELE OR VARICOCELE: No. HERNIA OR EXTRA-TESTICULAR MASS: No. OTHER: No other significant finding. LEFT: TESTICLE: Normal size, 3.3 x 2 x 3.3 cm. Normal echotexture. Normal blood flow. No mass. Multiple small calcifications. EPIDIDYMIS: Normal candace 1 x 1 x 0.8 cm. HYDROCELE OR VARICOCELE: No. HERNIA OR EXTRA-TESTICULAR MASS: No. OTHER: No other significant finding. IMPRESSION: Possible right epididymitis. Blood flow was present to each testicle. TECHNICAL DOCUMENTATION: JOB ID: [id number] [email or web address]- All Rights Reserved Reading location - IP/workstation name: [email or web address]
[2018-04-13 23:22] LABS: ABSOLUTE BASOPHILS # (AUTO) 0.1 10^3/uL (0.0-0.2); ABSOLUTE EOSINOPHILS # (AUTO) 0.2 10^3/uL (0.0-0.6); ABSOLUTE MONOCYTES (AUTO) 0.9 10^3/uL (0.1-1.4); ABSOLUTE NEUT (AUTO) 10.4 10^3/uL (1.7-8.2); BASOPHILS % (AUTO) 0.6 % (0-2); EOSINOPHILS % (AUTO) 1.3 % (0-6); HEMATOCRIT 35.1 % (37.9-51.0); HEMOGLOBIN 11.9 g/dL (13.5-17.0); LYMPHOCYTES % (AUTO) 14.6 % (13-45); MEAN CORPUSCULAR HEMOGLOBIN 29.5 pg (27.0-33.4); MEAN CORPUSCULAR HGB CONC 33.9 g/dL (32.0-36.0); MEAN CORPUSCULAR VOLUME 87 fl (80-97); MONOCYTES % (AUTO) 6.8 % (3-13); PLATELET COUNT 515 10^3/uL (150-450); RED BLOOD COUNT 4.04 10^6/uL (4.35-5.55); RED CELL DISTRIBUTION WIDTH 16.1 % (11.5-14.0); SEGMENTED NEUTROPHILS % (AUTO) 76.7 % (42-78); TOTAL CELLS COUNTED % (AUTO) 100 %; WHITE BLOOD COUNT 13.6 10^3/uL (4.0-10.5)
[2018-04-13 23:35] LABS: ALANINE AMINOTRANSFERASE 21 U/L (21-72); ALBUMIN 4.4 g/dL (3.5-5.0); ALKALINE PHOSPHATASE 85 U/L (38-126); ANION GAP 17 (5-19); ASPARTATE AMINO TRANSFERASE 17 U/L (17-59); BILIRUBIN,DIRECT 0.3 mg/dL (0.0-0.4); BILIRUBIN,TOTAL 0.4 mg/dL (0.2-1.3); BLOOD UREA NITROGEN 11 mg/dL (7-20); CALCIUM 9.8 mg/dL (8.4-10.2); CARBON DIOXIDE 25 mmol/L (22-30); CHLORIDE 99 mmol/L (98-107); GLUCOSE 92 mg/dL (75-110); SODIUM 140.9 mmol/L (137-145); TOTAL PROTEIN 8.6 g/dL (6.3-8.2)
[2018-04-14] MEDS ORDERED: NORMAL SALINE 1000 ML 1,000 ML IV ONE (02:19)
[2018-04-14 02:58] LABS: ABSOLUTE BASOPHILS # (AUTO) 0.2 10^3/uL (0.0-0.2); ABSOLUTE EOSINOPHILS # (AUTO) 0.3 10^3/uL (0.0-0.6); ABSOLUTE LYMPHOCYTES (AUTO) 2.3 10^3/uL (0.5-4.7); ABSOLUTE MONOCYTES (AUTO) 0.9 10^3/uL (0.1-1.4); ABSOLUTE NEUT (AUTO) 9.9 10^3/uL (1.7-8.2); BASOPHILS % (AUTO) 1.1 % (0-2); EOSINOPHILS % (AUTO) 2.5 % (0-6); HEMATOCRIT 37.1 % (37.9-51.0); HEMOGLOBIN 12.4 g/dL (13.5-17.0); LYMPHOCYTES % (AUTO) 17.2 % (13-45); MEAN CORPUSCULAR HEMOGLOBIN 29.1 pg (27.0-33.4); MEAN CORPUSCULAR HGB CONC 33.5 g/dL (32.0-36.0); MEAN CORPUSCULAR VOLUME 87 fl (80-97); MONOCYTES % (AUTO) 6.4 % (3-13); PLATELET COUNT 527 10^3/uL (150-450); RED BLOOD COUNT 4.26 10^6/uL (4.35-5.55); RED CELL DISTRIBUTION WIDTH 16.1 % (11.5-14.0); SEGMENTED NEUTROPHILS % (AUTO) 72.8 % (42-78); TOTAL CELLS COUNTED % (AUTO) 100 %; WHITE BLOOD COUNT 13.5 10^3/uL (4.0-10.5)
[2018-04-14 03:26] LABS: ALANINE AMINOTRANSFERASE 30 U/L (21-72); ALBUMIN 4.2 g/dL (3.5-5.0); ALKALINE PHOSPHATASE 90 U/L (38-126); ANION GAP 14 (5-19); ASPARTATE AMINO TRANSFERASE 23 U/L (17-59); BILIRUBIN,DIRECT 0.4 mg/dL (0.0-0.4); BILIRUBIN,TOTAL 0.5 mg/dL (0.2-1.3); BLOOD UREA NITROGEN 10 mg/dL (7-20); C-REACTIVE PROTEIN 38.6 mg/L (<10.0); CALCIUM 9.9 mg/dL (8.4-10.2); CARBON DIOXIDE 27 mmol/L (22-30); CHLORIDE 102 mmol/L (98-107); GLUCOSE 90 mg/dL (75-110); POTASSIUM 4.2 mmol/L (3.6-5.0); SODIUM 142.6 mmol/L (137-145); TOTAL PROTEIN 8.5 g/dL (6.3-8.2)
[2018-04-14 03:33] LABS: ERYTHROCYTE SEDIMENTATION RATE 85 mm/hr (0-15)
[2018-04-14] MEDS ORDERED: CEFTRIAXONE INJ 1000 MG VIAL IV ONE (03:52)
[2018-04-14] MEDS ORDERED: VANCOMYCIN HCL INJ 1000 MG VIAL IV ONE (04:01)
[2018-04-14] MEDS ORDERED: FLUCONAZOLE 400 MG/NS RTU 400 MG/200 ML RTUPB IV ONE (04:03)
--- NOTE | 2018-04-14 04:04 | RADIOLOGY REPORT (SQ) ---
EXAM DESCRIPTION: CT LUMBAR SPINE WITHOUT IV CONTRAST COMPLETED DATE/TME: 04/14/2018 02:18 CLINICAL HISTORY: back pain, concern for osteo COMPARISON: 01/23/2018 TECHNIQUE: Axial CT of the lumbar spine obtained without contrast. FINDINGS: Interval removal of posterior fusion hardware at L4/5 and L5/S1. There have been laminectomies at these levels. There is been interval development of lytic destructive changes involving the superior endplate of L4 and inferior L-plate of L5 with significant disc height narrowing. Mild sclerosis of the inferior endplate of L3 and superior endplate of L4. Mild inflammatory fat stranding in the soft tissues overlying the lumbar spine without well-circumscribed fluid collection. The T12-L2 vertebral body height preserved. Intervertebral disc height preserved at these levels. No definite acute abnormalities of the sacrum. Visualized pelvic bones are intact. No fracture of the visualized ribs. Remote partially healed fracture of the transverse process on the left at L3. Intervertebral IVC filter noted. Nonobstructing right nephrolithiasis. No other abnormalities noted in the visualized abdominal and pelvic soft tissues. DLP: 613.7 mGy-cm IMPRESSION: 1. There has been interval destructive lytic changes involving the inferior endplate of L3 and superior endplate of L4 with developing sclerosis. These findings likely represent the sequela of osteomyelitis. Given sclerosis some chronicity is suggested however acute osteomyelitis cannot be excluded by CT criteria. If further characterization is required MRI of the lumbar spine with contrast would be helpful. 2. Interval removal of fixation hardware at L4-S1 This exam was performed according to our departmental dose-optimization program, which includes automated exposure control, adjustment of the mA and/or kV according to patient size and/or use of iterative reconstruction technique.
[2018-04-14] MEDS ORDERED: KETOROLAC TROMETHAMINE INJ/PF 30 MG/1 ML SDV IV ONE (04:48)
--- NOTE | 2018-04-14 04:48 | ER Document Report ---
ED General Pain - General Chief Complaint: Back Pain Stated Complaint: BACK PAIN Time Seen by Provider: 04/13/18 21:45 Mode of Arrival: Wheelchair TRAVEL OUTSIDE OF THE [place]. 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 He was being treated as an inpatient with subsequent to be treated with fluconazole daily for 6 months stop taking it relapsed and began using IV drugs and had a return of symptoms. Nothing seemed to make it better during that time movement seems to make it worse. - Related Data Allergies/Adverse Reactions: No Known Allergies Allergy (Verified 01/23/18 14:35) Past Medical History - General Information source: Patient - Social History Smoking Status: Current Every Day Smoker Frequency of alcohol use: None Drug Abuse: None Family History: Arthritis, Hyperlipidemia, Hypertension. denies: CAD, COPD, CVA , DM, Malignancy, Thyroid Disfunction Patient has suicidal ideation: No Patient has homicidal ideation: No - Medical History Medical History: Other - IV drug abuse Discitis Pulmonary Medical History: Reports: Hx Asthma Renal/ Medical History: Denies: Hx Peritoneal Dialysis Musculoskeletal Medical History: Reports Hx Arthritis, Reports Hx Musculoskeletal Deformity, Reports Hx Musculoskeletal Trauma Psychiatric Medical History: Reports: Hx Anxiety, Hx Bipolar Disorder, Hx Depression Past Surgical History: Reports: Hx Orthopedic Surgery - L4 L5 FUSION 2010 - Immunizations Immunizations up to date: Yes Hx Diphtheria, Pertussis, Tetanus Vaccination: Yes - unknown Review of Systems - Review of Systems -: Yes All other systems reviewed and negative Physical Exam - Vital signs Vitals: Temp Pulse Resp BP Pulse Ox 99.2 F 110 H 20 142/97 H 100 04/13/18 21:05 04/13/18 21:05 04/13/18 21:05 04/13/18 21:05 04/13/18 21:05 - General General appearance: Appears well In distress: Mild - HEENT Head: Normocephalic Eyes: Normal Conjunctiva: Normal - Respiratory Respiratory status: No respiratory distress Chest status: Nontender Breath sounds: Normal Chest palpation: Normal - Cardiovascular Rhythm: Regular Heart sounds: Normal auscultation - Abdominal Inspection: Normal - Genitourinary Tenderness: Testicle tender - Right testicle tender and swollen - Back Back: Tender - Tenderness in the lumbar spine - Extremities General upper extremity: Normal inspection General lower extremity: Normal inspection - Psychological Associated symptoms: Normal affect Course - Re-evaluation Re-evalutation: 04/14/18 04:52 This 32-year-old man has a history of fungemia has stopped treatment 2 weeks prior and has had a return of symptoms. He also has a swollen testicle. Through triage she obtain an ultrasound of the testicle which likely demonstrates epididymitis, he does have systemic signs of infection at this time given his previous infection and concern for recurrence of fungemia. Will obtain cultures, will obtain a CT of the lumbar spine, will obtain blood count ESR CRP and CMP. Patient with a leukocytosis, patient does have elevated ESR and CRP and an appreciable left shift. Given the concern for recurrence of his fungemia need for infectious disease and potentially spinal surgery believe he would be better served at a higher level of care, will contact [facility] is a performed a surgery previously. Have spoken to Dr. Karyn Wilson who agrees to accept this patient to medical bed at this time. Have initiated treatment with vancomycin, Diflucan, as well as Rocephin. We will administer fluids we will administer Toradol for pain control. We will continue to monitor emergency department and reassess as necessary. - Vital Signs Vital signs: Temp Pulse Resp BP Pulse Ox 99.2 F 110 H 20 142/97 H 100 04/13/18 21:05 04/13/18 21:05 04/13/18 21:05 04/13/18 21:05 04/13/18 21:05 - Laboratory Result Diagrams: 04/14/18 02:46 04/14/18 02:46 Laboratory results interpreted by me: 04/13/18 04/13/18 04/14/18 22:52 22:52 02:46 WBC 13.6 H 13.5 H RBC 4.04 L 4.26 L Hgb 11.9 L 12.4 L Hct 35.1 L 37.1 L RDW 16.1 H 16.1 H Plt Count 515 H 527 H Absolute Neutrophils 10.4 H 9.9 H ESR 85 H C-Reactive Protein Total Protein 8.6 H 04/14/18 02:46 WBC RBC Hgb Hct RDW Plt Count Absolute Neutrophils ESR C-Reactive Protein 38.6 H Total Protein 8.5 H Discharge - Discharge Clinical Impression: Back pain, Fever Condition: Stable Disposition: [facility]
[2018-04-14 06:26] VITALS: BP 110/81
== END 2018-04-14 07:38 | disposition short-term general hospital (02) ==
LOC: ER 20:42
DX: M54.5 Low back pain (principal); R50.9 Fever, unspecified; N50.89 Other specified disorders of the male genital organs; R53.1 Weakness; F17.200 Nicotine dependence, unspecified, uncomplicated; Z98.1 Arthrodesis status
CPT/HCPCS: 99285; 96361; 96375; 96365; 96366; 96367; 96368; 36415; 87040; 85025; 85652; 86140; 80053; 76870; 93976; 72131; J3490; J1885; J0696; J7030; J3370

== ENCOUNTER 2018-05-01 16:59 | Emergency (ER) | payer SELFPAY ==
[2018-05-01] MEDS ORDERED: BUPIVACAINE HCL 0.5 % INJ/PF 30 ML SDV INJ ONE (17:25)
[2018-05-01] MEDS ORDERED: PENICILLIN V POTASSIUM 500 MG TABLET PO ONE (17:26)
--- NOTE | 2018-05-01 17:32 | ER Document Report ---
ED Oral Problem - General Chief Complaint: Toothache Stated Complaint: TOOTH PAIN Time Seen by Provider: 05/01/18 17:18 Mode of Arrival: Ambulatory Information source: Patient Notes: 32-year-old male presents to ED for complaint of pain to tooth #17. He has a very large cavity that he is attempted to pack with dental cement but the pain is still a level 4. He states he has been seen in the past for this tooth in the Penicillin VK helped him until he can get over the pain. He states this time he has a dental appointment next week but they told him he needed to get on some antibiotics. Patient is alert and oriented respirations regular and unlabored walks with a even steady gait and speaks in full sentences. TRAVEL OUTSIDE OF THE U.S[place] IN LAST 30 DAYS: No - HPI Onset: Other Onset: Gradual - Chronic Quality of pain: Sharp, Throbbing Severity: Moderate Pain Level: 3 Associated symptoms: Toothache Worsened by: Cold Relieved by: Nothing Similar symptoms previously: Yes Recently seen / treated by doctor/dentist: No - Related Data Allergies/Adverse Reactions: No Known Allergies Allergy (Verified 01/23/18 14:35) Past Medical History - General Information source: Patient - Social History Smoking Status: Current Every Day Smoker Cigarette use (# per day): Yes - ppd Chew tobacco use (# tins/day): No Smoking Education Provided: Yes - 4 min Frequency of alcohol use: Rare Drug Abuse: None Occupation: none Lives with: Parents Family History: Arthritis, Hyperlipidemia, Hypertension. denies: CAD, COPD, CVA , DM, Malignancy, Thyroid Disfunction - Past Medical History Cardiac Medical History: Reports: None Pulmonary Medical History: Reports: Hx Asthma EENT Medical History: Reports: None Neurological Medical History: Reports: None Endocrine Medical History: Reports: None Renal/ Medical History: Reports: None Malignancy Medical History: Reports None GI Medical History: Reports: None Musculoskeletal Medical History: Reports Hx Arthritis, Reports Hx Musculoskeletal Deformity, Reports Hx Musculoskeletal Trauma Skin Medical History: Reports None Psychiatric Medical History: Reports: Hx Anxiety, Hx Bipolar Disorder, Hx Depression Traumatic Medical History: Reports: None Infectious Medical History: Reports: None Past Surgical History: Reports: Hx Orthopedic Surgery - L4 L5 FUSION 2010, hardware removed from the spine due to infection - Immunizations Immunizations up to date: Yes Hx Diphtheria, Pertussis, Tetanus Vaccination: Yes - unknown Review of Systems - Review of Systems Constitutional: No symptoms reported EENT: Mouth pain, Dental problem Cardiovascular: No symptoms reported Respiratory: No symptoms reported Gastrointestinal: No symptoms reported Genitourinary: No symptoms reported Male Genitourinary: No symptoms reported Musculoskeletal: No symptoms reported Skin: No symptoms reported Hematologic/Lymphatic: No symptoms reported Neurological/Psychological: No symptoms reported -: Yes All other systems reviewed and negative Physical Exam - Vital signs Vitals: Temp Pulse Resp BP Pulse Ox 98.6 F 104 H 16 127/93 H 99 05/01/18 17:05 05/01/18 17:05 05/01/18 17:05 05/01/18 17:05 05/01/18 17:05 Interpretation: Normal - General General appearance: Appears well, Alert - HEENT Head: Normocephalic, Atraumatic Eyes: Normal Pupils: PERRL Teeth diagram: 1 - Large cavity with most of the tooth missing with some dental paste in the tooth, gingivitis all around the tooth no definite abscess. 2 - Teeth are missing from previous extractions - Respiratory Respiratory status: No respiratory distress Chest status: Nontender Breath sounds: Normal Chest palpation: Normal - Cardiovascular Rhythm: Regular Heart sounds: Normal auscultation Murmur: No - Abdominal Inspection: Normal Distension: No distension Bowel sounds: Normal Tenderness: Nontender Organomegaly: No organomegaly - Back Back: Normal, Nontender - Extremities General upper extremity: Normal inspection, Nontender, Normal color, Normal ROM , Normal temperature General lower extremity: Normal inspection, Nontender, Normal color, Normal ROM , Normal temperature, Normal weight bearing. No: Georgie's sign - Neurological Neuro grossly intact: Yes Cognition: Normal Orientation: AAOx4 [place] Coma Scale Eye Opening: Spontaneous Chrissy Coma Scale Verbal: Oriented [place] Coma Scale Motor: Obeys Commands [place] Coma Scale Total: 15 Speech: Normal Motor strength normal: LUE, RUE, LLE, RLE Sensory: Normal - Psychological Associated symptoms: Normal affect, Normal mood - Skin Skin Temperature: Warm Skin Moisture: Dry Skin Color: Normal Course - Re-evaluation Re-evalutation: 05/01/18 17:32 This young man was seen for dental pain. He requested a dental block and will receive 1 with Sensorcaine. He is also treated with Penicillin VK. Patient was instructed to return to his dentist as scheduled to have this tooth removed. - Vital Signs Vital signs: Temp Pulse Resp BP Pulse Ox 99 F 100 16 129/85 H 100 05/01/18 18:45 05/01/18 18:45 05/01/18 18:45 05/01/18 18:45 05/01/18 18:45 Discharge - Discharge Clinical Impression: Pain due to dental caries Condition: Stable Disposition: HOME, SELF-CARE Additional Instructions: TOOTHACHE: Your pain is due to dental decay. The tooth must be repaired in order for you to feel better. You will, therefore, be referred to a dentist. We do not have dentists on the staff at [facility]. Severe swelling or drainage around a tooth usually means a dental abscess. This also requires evaluation and treatment by the dentist, but antibiotics may be prescribed while awaiting dental treatment. You should be rechecked immediately if you develop major swelling of the face, increasing pain, a lump in the jaw or gums, headache, difficulty swallowing, or fever. PENICILLIN V K: You have been given a prescription for Penicillin VK. Your physician has determined that this is the best antibiotic for your condition. Pen VK can be taken with meals, however more of the antibiotic gets into the bloodstream if it's taken on an empty stomach. Penicillin usually has no side effects. However, allergy to penicillins is common. If you have had an allergic reaction to any drug of the penicillin family, you should never take any other penicillin. Notify your doctor at once if you develop hives, itching, swelling, faintness, or shortness of breath. You were treated with a dental block per your request for your dental pain. You stated last time this helped you until the antibiotic started. FOLLOW-UP CARE: You have been referred for follow-up care to the dentists listed below. Call the dentists office for an appointment as you were instructed or within the next two days. If you experience worsening or a significant change in your symptoms, notify the physician immediately or return to the Emergency Department at any time for re-evaluation. [facility] [address] [facility] [address] [place] [address] [facility] [address] [facility] [address] [facility] [address] [email or web address] [address] [place] [address] Friday- 8:00am to 5:00 pm Will see patients from other [facility]. Charges based on income and family size and accepts Medicare, Medicaid, and Insurances Will pull molars [facility] [place] [address] Hours of Operation 8:00 am - 4:30 pm weekdays The following dental offices accept Medicaid: [facility] Dr. Sheets Dr. Rincon Dr. Ayala Dr. Jiang Tom Johnson, [place], and [place] oral surgery Dr. Rivera ([place]) Dr. Negro ([place]) [facility] Drs. Lagos ([place]) Dr. Stark ([place]) [facility] Dr. Infante ([place]) Drs. Carranza and ([place]) Medicaid Care Line Prescriptions: Penicillin V Potassium [Penicillin Vk 500 mg Tablet] 500 mg PO BID #20 tablet Forms: Elevated Blood Pressure, Smoking Cessation Education
[2018-05-01 18:47] VITALS: BP 129/85
== END 2018-05-01 18:47 | disposition home or self-care (01) ==
LOC: ER 16:59
PROC: 3E0T3BZ Introduction of Anesthetic Agent into Peripheral Nerves and Plexi, Percutaneous Approach (ICD-10-PCS; principal; 2018-05-01)
DX: K02.9 Dental caries, unspecified (principal); K05.10 Chronic gingivitis, plaque induced; K08.89 Other specified disorders of teeth and supporting structures; J45.909 Unspecified asthma, uncomplicated; F17.210 Nicotine dependence, cigarettes, uncomplicated; Z71.6 Tobacco abuse counseling
CPT/HCPCS: 99282; 99406; 64400; J3490

== ENCOUNTER 2018-07-28 17:29 | Emergency (ER) | payer SELFPAY ==
[2018-07-28] MEDS ORDERED: LIDOCAINE 1%/EPINEPHRINE INJ 20 ML VIAL INJ ONE (18:49)
--- NOTE | 2018-07-28 18:49 | ER Document Report ---
ED Medical Screen (RME) - General Chief Complaint: Abscess Stated Complaint: ABSCESS/LEFT ARM Time Seen by Provider: 07/28/18 18:45 Notes: Patient is a 33-year-old male that presents to the emergency department for chief complaint of abscess on the left elbow. Patient first noticed this 3 days ago and it progressively got worse since then. ROS: Other than noted above, the 12 point review of systems was reviewed with the patient and were negative, all pertinent findings are included in the HPI. PHYSICAL EXAMINATION: Vital signs reviewed. GENERAL: Well-appearing, well-nourished and in no acute distress. HEAD: Atraumatic, normocephalic. EYES: Pupils equal round extraocular movements intact, conjunctiva are normal. ENT: Nares patent NECK: Normal range of motion CV: Heart regular rate and rhythm LUNGS: No respiratory distress Musculoskeletal: Normal range of motion, there is a 2-3 cm abscess noted on the left lateral elbow, purulent discharge noted, tenderness with palpation. The joint does not appear to be effective, good range of motion, no joint warmth. NEUROLOGICAL: Normal speech PSYCH: Normal mood, normal affect. MDM: Patient seen and examined for rapid initial assessment. Vital signs reviewed. A comprehensive ED assessment and evaluation of the patient, analysis of test results and completion of the medical decision making process will be conducted by additional ED providers. *Note is created using voice recognition software and may contain spelling, syntax or grammatical errors. TRAVEL OUTSIDE OF THE [place]. IN LAST 30 DAYS: No - Related Data Allergies/Adverse Reactions: No Known Allergies Allergy (Verified 07/28/18 17:30) Past Medical History - Social History Chew tobacco use (# tins/day): No Frequency of alcohol use: None Drug Abuse: Marijuana Pulmonary Medical History: Reports: Hx Asthma Renal/ Medical History: Denies: Hx Peritoneal Dialysis Musculoskeltal Medical History: Reports Hx Arthritis, Reports Hx Musculoskeletal Deformity, Reports Hx Musculoskeletal Trauma Psychiatric Medical History: Reports: Hx Anxiety, Hx Bipolar Disorder, Hx Depression Past Surgical History: Reports: Hx Orthopedic Surgery - L4 L5 FUSION 2010, hardware removed from the spine due to infection - Immunizations Immunizations up to date: Yes Hx Diphtheria, Pertussis, Tetanus Vaccination: Yes - unknown Physical Exam - Vital signs Vitals: Temp Pulse Resp BP Pulse Ox 98.3 F 72 18 136/88 H 100 07/28/18 17:51 07/28/18 17:51 07/28/18 17:51 07/28/18 17:51 07/28/18 17:51 Course - Vital Signs Vital signs: Temp Pulse Resp BP Pulse Ox 98.3 F 72 18 136/88 H 100 07/28/18 17:51 07/28/18 17:51 07/28/18 17:51 07/28/18 17:51 07/28/18 17:51
[2018-07-28] MEDS ORDERED: CEPHALEXIN 500 MG CAPSULE PO ONE (18:50)
[2018-07-28] MEDS ORDERED: SULFAMETHOXAZOLE/TRIMETHOPRIM 800-160 MG TABLET PO ONE (19:09)
--- NOTE | 2018-07-28 19:11 | ER Document Report ---
HPI - HPI Patient complains to provider of: Abscess Time Seen by Provider: 07/28/18 18:45 Onset: Other - 3 days Onset/Duration: Persistent Quality of pain: Achy Pain Level: 4 Context: Patient complains of abscess to left arm for the past 3 days. Patient states he has been squeezing on the skin lesion and has had purulent drainage coming out. Patient reports a distant history of IV drug use although states he has not used any IV drugs for over 8 months. Associated Symptoms: denies: Fever Exacerbated by: Movement Relieved by: Denies Similar symptoms previously: No Recently seen / treated by doctor: No - ROS ROS below otherwise negative: Yes Systems Reviewed and Negative: Yes All other systems reviewed and negative - CONSTITUTIONAL Constitutional: DENIES: Fever, Chills - NEURO Neurology: DENIES: Headache - GASTROINTESTINAL Gastrointestinal: DENIES: Nausea - MUSCULOSKELETAL Musculoskeletal: REPORTS: Extremity pain, Swelling - DERM Skin Color: Erythema Notes: Abscess Past Medical History - General Information source: Patient - Social History Smoking Status: Current Every Day Smoker Chew tobacco use (# tins/day): No Smoking Education Provided: Yes Frequency of alcohol use: None Drug Abuse: Marijuana Occupation: None Lives with: Family Family History: Arthritis, Hyperlipidemia, Hypertension. denies: CAD, COPD, CVA , DM, Malignancy, Thyroid Disfunction Patient has suicidal ideation: No Patient has homicidal ideation: No Pulmonary Medical History: Reports: Hx Asthma Renal/ Medical History: Denies: Hx Peritoneal Dialysis Musculoskeletal Medical History: Reports Hx Arthritis, Reports Hx Musculoskeletal Deformity, Reports Hx Musculoskeletal Trauma Psychiatric Medical History: Reports: Hx Anxiety, Hx Bipolar Disorder, Hx Depression Past Surgical History: Reports: Hx Orthopedic Surgery - L4 L5 FUSION 2010, hardware removed from the spine due to infection - Immunizations Immunizations up to date: Yes Hx Diphtheria, Pertussis, Tetanus Vaccination: Yes - unknown Vertical Provider Document - CONSTITUTIONAL Agree With Documented VS: Yes Exam Limitations: No Limitations General Appearance: WD/WN, No Apparent Distress - INFECTION CONTROL TRAVEL OUTSIDE OF THE [place] IN LAST 30 DAYS: No - HEENT HEENT: Atraumatic, Normocephalic - NECK Neck: Normal Inspection, Supple - RESPIRATORY Respiratory: Breath Sounds Normal, No Respiratory Distress - CARDIOVASCULAR Cardiovascular: Regular Rate, Regular Rhythm Pulses: Normal: Radial - BACK Back: Normal Inspection - MUSCULOSKELETAL/EXTREMETIES Musculoskeletal/Extremeties: MAEW, FROM, Tender - Left antecubital area - NEURO Level of Consciousness: Awake, Alert, Appropriate Motor/Sensory: No Motor Deficit - DERM Integumentary: Warm, Dry, Abscess - Small abscess to left antecubital area Course - Vital Signs Vital signs: Temp Pulse Resp BP Pulse Ox 98.3 F 72 18 136/88 H 100 07/28/18 17:51 07/28/18 17:51 07/28/18 17:51 07/28/18 17:51 07/28/18 17:51 Procedures - Incision and Drainage Left Arm Type: Simple Anesthetic type: 1% Lidocaine w/epi Blade size: 11 I&D procedure: Chlorprep applied Incision Method: Incision made by scalpel Amount/type of drainage: small amount of bloody drainage Adult Front & Back picture: 1 - abscess Discharge - Discharge Clinical Impression: Arm abscess Condition: Stable Disposition: HOME, SELF-CARE Instructions: Abscess ([facility]), Cephalexin ([facility]), Post Incision and Drainage, Trimethoprim-Sulfa ([facility]) Additional Instructions: Return immediately for any new or worsening symptoms Followup with your primary care provider, call tomorrow to make a followup appointment Apply warm compresses frequently to the area Prescriptions: Cephalexin Monohydrate [Keflex 500 mg Capsule] 500 mg PO Q6H 5 Days capsule Naproxen [Naprosyn 250 Nmg Tablet] 1 tab PO BID #14 tablet Sulfamethoxazole/Trimethoprim [Bactrim Ds Tablet] 1 each PO BID #20 tablet Forms: Smoking Cessation Education Referrals: [facility] [Provider Group] - Follow up as needed
[2018-07-28 21:00] VITALS: BP 117/74
== END 2018-07-28 21:37 | disposition home or self-care (01) ==
LOC: ER 17:29
DX: L02.414 Cutaneous abscess of left upper limb (principal); F12.10 Cannabis abuse, uncomplicated; F17.200 Nicotine dependence, unspecified, uncomplicated; J45.909 Unspecified asthma, uncomplicated
CPT/HCPCS: 99283; 10060; J3490

== ENCOUNTER 2018-08-11 11:22 | Emergency (ER) | payer SELFPAY ==
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
--- NOTE | 2018-08-11 12:23 | RADIOLOGY REPORT (SQ) ---
EXAM DESCRIPTION: HUMERUS LEFT COMPLETED DATE/TIME: 08/11/2018 12:14 pm REASON FOR STUDY: swelling COMPARISON: None. NUMBER OF VIEWS: Two views. TECHNIQUE: Two radiographic images were acquired of the left humerus to include elbow and shoulder i n at least one projection. LIMITATIONS: None. FINDINGS: MINERALIZATION: Normal. BONES: No acute fracture or dislocation. No worrisome bone lesions. SOFT TISSUES: No obvious swelling or foreign body. OTHER: No other significant finding. IMPRESSION: 1. NEGATIVE STUDY OF THE LEFT HUMERUS. TECHNICAL DOCUMENTATION: JOB ID: [id number] [employer]- All Rights Reserved Reading location - IP/workstation name: [email or web address]
--- NOTE | 2018-08-11 13:35 | RADIOLOGY REPORT (SQ) ---
EXAM DESCRIPTION: U/S EXTREMITY NONVASCULAR COMP COMPLETED DATE/TIME: 08/11/2018 1:24 pm REASON FOR STUDY: Hematoma versus abscess left humerus, elbow COMPARISON: None. TECHNIQUE: Static and real time [place] scale ultrasound acquired in the left elbow. LIMITATIONS: None. FINDINGS: Sonographic imaging of the area of concern shows considerable subcutaneous edema. There i s a complex area no lateral aspect of the elbow measuring 2.9 x 2.5 x 1.2 cm. By history an abscess was drained in this location last week. IMPRESSION: There appears to be residual or recurrent abscess in the lateral aspect of the left elbo w. TECHNICAL DOCUMENTATION: JOB ID: [id number] [email or web address]- All Rights Reserved Reading location - IP/workstation name: [email or web address]
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
[2018-08-11] MEDS ORDERED: OXYCODONE HCL IR 5 MG TABLET PO ONE (16:23)
[2018-08-11] MEDS ORDERED: LIDOCAINE 1% INJ-PF (10 MG/ML) 30 ML SDV ONE (17:02)
--- NOTE | 2018-08-11 20:35 | PDOC CONSULTATION ---
History of Present Illness Patient complains of: Left arm pain History of Present Illness: CHINTAN DODGE is a 33 year old male who was noted with a left arm abscess at the lateral aspect of the upper arm just above the elbow about a week ago which was incised and drained but no cultures taken. Patient was placed on antibiotics and apparently did well initially however he has had recent increased swelling and pain in this area that he thinks is related with his bumping into this region. No fever. Patient is on chronic antifungals for a spine infection. His only other past medical history is asthma. Patient denies any IV drug abuse. Past Medical History Pulmonary Medical History: Reports: Asthma Musculoskeltal Medical History: Reports: Arthritis Musculoskeletal History Note: Fungal infection of the spine. Psychiatric Medical History: Reports: Bipolar Disorder, Depression Past Surgical History Past Surgical History: Reports: Orthopedic Surgery - L4 L5 FUSION 2010, hardware removed from the spine due to infection Social History Smoking Status: Current Every Day Smoker Family History Family History: Arthritis, Hyperlipidemia, Hypertension. denies: CAD, COPD, CVA , DM, Malignancy, Thyroid Disfunction Parental Family History Reviewed: No Children Family History Reviewed: No Sibling(s) Family History Reviewed.: No Medication/Allergy Home Medications: Cyclobenzaprine HCl [Flexeril 10 mg Tablet] 10 mg PO TIDP PRN #15 tab 11/24/17 Prednisone 10 mg PO DAILY #21 tablet 11/24/17 Penicillin V Potassium [Penicillin Vk 500 mg Tablet] 500 mg PO BID #20 tablet Cephalexin Monohydrate [Keflex 500 mg Capsule] 500 mg PO Q6H 5 Days capsule Naproxen [Naprosyn 250 Nmg Tablet] 1 tab PO BID #14 tablet 07/28/18 Sulfamethoxazole/Trimethoprim [Bactrim Ds Tablet] 1 each PO BID #20 tablet 07/28 Cephalexin Monohydrate [Keflex 500 mg Capsule] 500 mg PO Q6H 7 Days #28 capsule 08/11/18 Oxycodone HCl/Acetaminophen [Percocet 5-325 mg Tablet] 1 tab PO Q4H PRN #10 tablet 08/11/18 Sulfamethoxazole/Trimethoprim [Bactrim Ds Tablet] 1 each PO BID #14 tablet 08/11 Allergies/Adverse Reactions: No Known Allergies Allergy (Verified 08/11/18 13:57) Physical Exam Vital Signs: Temp Pulse Resp BP Pulse Ox 98.8 F 93 14 126/88 H 100 08/11/18 11:31 08/11/18 11:31 08/11/18 11:31 08/11/18 11:31 08/11/18 11:31 Intake & Output 08/10/18 08/11/18 08/12/18 06:59 06:59 06:59 Weight 69.7 kg General appearance: PRESENT: no acute distress, cooperative Respiratory exam: PRESENT: clear to auscultation ellen Cardiovascular exam: PRESENT: RRR Extremities exam: PRESENT: other - At the lateral aspect of the left upper arm just above the elbow there is a small punctate wound consistent with a prior incision and drainage and just above it there is a oval-shaped about 4 x 2 cm region of firmness with tenderness and subtle erythema. Results Impressions: Humerus X-Ray 08/11/18 11:49 IMPRESSION: 1. NEGATIVE STUDY OF THE LEFT HUMERUS. Extremity Ultrasound 08/11/18 11:51 IMPRESSION: There appears to be residual or recurrent abscess in the lateral aspect of the left elbow. Assessment & Plan - Diagnosis (1) Abscess Is this a current diagnosis for this admission?: Yes Plan: Left upper arm abscess. Recurrent. This abscess was drained in the emergency department by me. Will place patient on antibiotics and have him follow-up at [facility] tomorrow for packing removal and wound care instructions. And to follow-up on his cultures.
--- NOTE | 2018-08-11 20:39 | Operative Report ---
Operative Report DATE OF SURGERY: 08/11/18 PREOPERATIVE DIAGNOSIS: Left upper arm abscess POSTOPERATIVE DIAGNOSIS: Left upper arm abscess OPERATION: Left upper arm abscess incision and drainage. Abscess cavity measuring about 1 cm x 3 cm. SURGEON: BRENDA ALLEN ANESTHESIA: Local TISSUE REMOVED OR ALTERED: Pus sent for Gram stain and culture. COMPLICATIONS: None ESTIMATED BLOOD LOSS: 10 cc INTRAOPERATIVE FINDINGS: About 1 x 3 cm deep seeded well-circumscribed abscess cavity filled with pus at the lateral aspect of the left upper arm just above the elbow. PROCEDURE: Informed consent was obtained. Procedure was done at the patient's bedside in the emergency department. Patient's left upper arm was prepped and draped in the usual sterile fashion. Patient had an oblong about 2 x 4 cm region of firmness and tenderness at the lateral aspect of the left upper arm just above the elbow. This region was infiltrated with 1% lidocaine. A vertically oriented incision was made cutting through some indurated tissue. Deep about 3 cm from the skin there was a 1 x 3 cm abscess cavity that was well- circumscribed which was incised with drainage of pus. The cavity was irrigated and then packed with gauze. Patient tolerated procedure well with no apparent complications plans are made for him to follow-up at [facility] tomorrow for packing removal and wound care instructions and for follow-up care. Patient will be discharged on Keflex and Septra until the cultures return.
[2018-08-11 20:41] VITALS: BP 129/74
== END 2018-08-11 20:41 | disposition home or self-care (01) ==
LOC: ER 11:22
DX: L02.414 Cutaneous abscess of left upper limb (principal); J45.909 Unspecified asthma, uncomplicated; B99.9 Unspecified infectious disease; Z79.899 Other long term (current) drug therapy; F17.200 Nicotine dependence, unspecified, uncomplicated
CPT/HCPCS: 99284; 87070; 87205; 87077; 73060; 76881; 10060; A6266; J3490

== ENCOUNTER 2019-02-17 23:54 | Emergency (ER) | payer SELFPAY ==
--- NOTE | 2019-02-18 01:45 | ER Document Report ---
ED Medical Screen (RME) - General Chief Complaint: Skin Problem Stated Complaint: BACK INJURY Time Seen by Provider: 02/18/19 01:42 Notes: Patient is a 33-year-old male who presents emergency department with a chief complaint of low back pain. He states that he had slipped and fell on his left side yesterday. He also was seen last year at [facility] for a fungal infection of his spine and he is supposed to be on a ntifungal medications, but he has not been on them for the past 5 months due to not having insurance. He states that his back pain feels similar as to the back pain he had he was at [facility]. Denies any bladder or bowel dysfunction, he is able to walk with help. He does have a history of IV drug abuse. Denies any recent IV drug abuse. Exam: Tenderness noted to left lower back. I have greeted and performed a rapid initial assessment of this patient. A comprehensive ED assessment and evaluation of the patient, analysis of test results and completion of medical decision making process will be conducted by an additional ED providers. TRAVEL OUTSIDE OF THE [place] IN LAST 30 DAYS: No - Related Data Allergies/Adverse Reactions: No Known Allergies Allergy (Verified 08/11/18 13:57) Past Medical History Pulmonary Medical History: Reports: Hx Asthma Renal/ Medical History: Denies: Hx Peritoneal Dialysis Musculoskeltal Medical History: Reports Hx Arthritis, Reports Hx Musculoskeletal Deformity, Reports Hx Musculoskeletal Trauma Psychiatric Medical History: Reports: Hx Anxiety, Hx Bipolar Disorder, Hx Depression Past Surgical History: Reports: Hx Orthopedic Surgery - L4 L5 FUSION 2010, hardware removed from the spine due to infection - Immunizations Immunizations up to date: Yes Hx Diphtheria, Pertussis, Tetanus Vaccination: Yes - unknown Physical Exam - Vital signs Vitals: Temp Pulse Resp BP Pulse Ox 97.7 F 103 H 18 139/91 H 96 02/18/19 00:00 02/18/19 00:00 02/18/19 00:00 02/18/19 00:00 02/18/19 00:00 Course - Vital Signs Vital signs: Temp Pulse Resp BP Pulse Ox 98.1 F 83 16 126/83 H 97 02/18/19 13:27 02/18/19 13:27 02/18/19 13:27 02/18/19 13:27 02/18/19 13:27 - Laboratory Result Diagrams: 02/18/19 03:00 02/18/19 03:00 Laboratory results interpreted by me: 02/18/19 02/18/19 03:00 03:00 RDW 14.5 H BUN 22 H Doctor's Discharge - Discharge Clinical Impression: Back pain Condition: Stable Disposition: HOME, SELF-CARE Additional Instructions: You have been seen in the Emergency Department (ED) today for back pain. Your workup and exam have not shown any acute abnormalities that will require emergent neurosurgical intervention. Please follow-up with the neurosurgeon that did your previous surgeries and call them this week to arrange an appointment. Please take Motrin 600 mg every 6 hours and/or Tylenol every 6 hours for pain/inflammation. You should also purchase a local lidocaine cream such as "aspercreme with lidocaine" and use per bottle instructions to the affe cted area. Apply heat to the area as often as you are able. Continue to keep active and avoid prolonged periods of bed rest. Please follow up with your doctor as soon as possible regarding today's ED visit and your back pain. Return to the ED for worsening back pain, fever, weakness or numbness of either leg, or if you develop either (1) an inability to urinate or have bowel movements, or (2) loss of your ability to control your bathroom functions (if you start having "accidents"), or if you develop other new symptoms that concern you.concern you.
[2019-02-18] MEDS ORDERED: KETOROLAC TROMETHAMINE INJ/PF 30 MG/1 ML SDV IV ONE ×3 (01:51→11:01)
[2019-02-18 03:21] LABS: ABSOLUTE BASOPHILS # (AUTO) 0.1 10^3/uL (0.0-0.2); ABSOLUTE EOSINOPHILS # (AUTO) 0.5 10^3/uL (0.0-0.6); ABSOLUTE LYMPHOCYTES (AUTO) 3.3 10^3/uL (0.5-4.7); ABSOLUTE MONOCYTES (AUTO) 0.8 10^3/uL (0.1-1.4); BASOPHILS % (AUTO) 1.4 % (0-2); EOSINOPHILS % (AUTO) 5.6 % (0-6); HEMATOCRIT 39.9 % (37.9-51.0); HEMOGLOBIN 13.6 g/dL (13.5-17.0); LYMPHOCYTES % (AUTO) 37.6 % (13-45); MEAN CORPUSCULAR HEMOGLOBIN 30.1 pg (27.0-33.4); MEAN CORPUSCULAR HGB CONC 34.2 g/dL (32.0-36.0); MEAN CORPUSCULAR VOLUME 88 fl (80-97); MONOCYTES % (AUTO) 9.5 % (3-13); PLATELET COUNT 315 10^3/uL (150-450); RED BLOOD COUNT 4.52 10^6/uL (4.35-5.55); RED CELL DISTRIBUTION WIDTH 14.5 % (11.5-14.0); SEGMENTED NEUTROPHILS % (AUTO) 45.9 % (42-78); TOTAL CELLS COUNTED % (AUTO) 100 %; WHITE BLOOD COUNT 8.8 10^3/uL (4.0-10.5)
[2019-02-18 03:45] LABS: ALANINE AMINOTRANSFERASE 42 U/L (21-72); ALBUMIN 4.2 g/dL (3.5-5.0); ALKALINE PHOSPHATASE 104 U/L (38-126); ANION GAP 10 (5-19); ASPARTATE AMINO TRANSFERASE 31 U/L (17-59); BILIRUBIN,DIRECT 0.2 mg/dL (0.0-0.4); BILIRUBIN,TOTAL 0.2 mg/dL (0.2-1.3); BLOOD UREA NITROGEN 22 mg/dL (7-20); CALCIUM 9.7 mg/dL (8.4-10.2); CARBON DIOXIDE 26 mmol/L (22-30); CHLORIDE 103 mmol/L (98-107); GLUCOSE 100 mg/dL (75-110); POTASSIUM 4.2 mmol/L (3.6-5.0); SODIUM 138.5 mmol/L (137-145); TOTAL PROTEIN 7.7 g/dL (6.3-8.2)
--- NOTE | 2019-02-18 05:04 | RADIOLOGY REPORT (SQ) ---
EXAM DESCRIPTION: CT LUMBAR SPINE WITH IV CONTRAST COMPLETED DATE/TME: 02/18/2019 01:47 CLINICAL HISTORY: 33 years Male, low back pain; hx of fungal infection of spine Comparison: 04/14/18 Technique: No contrast. Coronal and sagittal reformat. This exam was performed according to our departmental dose-optimization program, which includes automated exposure control, adjustment of the mA and/or kV according to patient size and/or use of iterative reconstruction technique.[facility]: Dose Right [facility]: CareDose [facility]: Dose Right [facility]: Teradose 4D [facility]: Voolgo LIMITATIONS: None Findings: Normal curvature. 0.2 cm degenerative L3 retrolisthesis. Moderate irregular endplates at L3-L4 with sclerosis. Intervertebral disc replacement at L4-L5 and L5-S1. IVC filter at the L2-L3 level. Resection of posterior elements between L4 and S1 levels. Mild levo convexity. Additionally, by levels: T11-T12: No significant thecal sac or nerve root compression. T12-L1: No significant thecal sac or nerve root compression. L1-L2: No significant thecal sac or nerve root compression. L2-L3: No significant thecal sac or nerve root compression. L3-L4: Mild/moderate thecal sac compression due to a small disc bulge. Chronic irregular sclerotic endplates at the L3-L4 disc space mandible discitis, indeterminate age. Moderate bilateral L3 foraminal stenosis. L4-L5: No significant thecal sac or nerve root compression. L5-S1: No significant thecal sac or nerve root compression. S1-S2: No significant thecal sac or nerve root compression. S2-S3: No significant thecal sac or nerve root compression. S3-S4: No significant thecal sac or nerve root compression. S4-S5: No significant thecal sac or nerve root compression. S5-Coccygeal Junction: No significant thecal sac or nerve root compression. Coccyx: Intact. Else, unremarkable remaining soft tissues and neurovasculature including the visualized inferior thorax, retroperitoneum, sacroiliac joint, and paraspinal compartment. IMPRESSION: 1. Mild/moderate L3-L4 thecal sac compression and moderate bilateral L3 foraminal stenosis due to a small disc bulge. Interval worsening. 2. Endplate irregularity and sclerosis at the L3-L4 level consistent with prior exam from April 2018. Differential etiologies include advanced degeneration and discitis. 3. L4-S1 intervertebral disc replacement and resection of posterior elements. 4. IVC filter.
--- NOTE | 2019-02-18 06:01 | ER Document Report ---
ED General <VICTOR M AKINS - Last Filed: 02/18/19 12:29> - General TRAVEL OUTSIDE OF THE [place] IN LAST 30 DAYS: No <BERENICE HOWELL - Last Filed: 02/18/19 19:14> - General Chief Complaint: Skin Problem Stated Complaint: BACK INJURY Time Seen by Provider: 02/18/19 01:42 Notes: Patient is a 33-year-old male who presents emergency department with a chief complaint of low back pain. He states that he had slipped and fell on his left side yesterday. 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 He states that his back pain feels similar as to the back pain he had he was at [facility]. Denies any bladder or bowel dysfunction, he is able to walk with help. He does have a history of IV drug abuse. Denies any recent IV drug abuse. (GLENIS HOWELLMIRIAM Zapata) - Related Data Allergies/Adverse Reactions: No Known Allergies Allergy (Verified 08/11/18 13:57) Past Medical History - General Information source: Patient - Social History Smoking Status: Current Every Day Smoker Family History: Arthritis, Hyperlipidemia, Hypertension. denies: CAD, COPD, CVA, DM, Malignancy, Thyroid Disfunction Pulmonary Medical History: Reports: Hx Asthma Renal/ Medical History: Denies: Hx Peritoneal Dialysis Musculoskeletal Medical History: Reports Hx Arthritis, Reports Hx Musculoskeletal Deformity, Reports Hx Musculoskeletal Trauma Psychiatric Medical History: Reports: Hx Anxiety, Hx Bipolar Disorder, Hx Depression Past Surgical History: Reports: Hx Orthopedic Surgery - L4 L5 FUSION 2010, hardware removed from the spine due to infection - Immunizations Immunizations up to date: Yes Hx Diphtheria, Pertussis, Tetanus Vaccination: Yes - unknown <GLENIS HOWELLMIRIAM Zapata - Last Filed: 02/18/19 19:14> Review of Systems <RONBERENICE M - Last Filed: 02/18/19 19:14> - Review of Systems Notes: REVIEW OF SYSTEMS: CONSTITUTIONAL : Denies recent illness. Denies recent unintentional weight loss. Denies fever, chills, or sweats. EENT: Denies eye, ear, throat, or mouth pain, discharge, or symptoms. Denies nasal or sinus congestion. CARDIOVASCULAR: Denies chest pain. RESPIRATORY: Denies shortness of breath, cough, congestion, difficulty breathing, or wheezing. GASTROINTESTINAL: Denies nausea, vomiting, and diarrhea. Denies abdominal pain. Denies constipation. GENITOURINARY: Denies difficulty urinating, burning, blood in urine, urgency or frequency. MUSCULOSKELETAL: See HPI SKIN: Denies rash, itchiness, or lesions HEMATOLOGIC : Denies easy bruising or bleeding. LYMPHATIC: Denies swollen, painful, enlarged glands. NEUROLOGICAL: Denies no numbness or tingling denies weakness. Denies headache. Denies altered mental status. Denies alteration in speech. PSYCHIATRIC: Denies stress, anxiety, alteration in sleep patterns, or depression. All other systems reviewed and negative. (BERENICE HOWELL) Physical Exam <BERENICE HOWELL - Last Filed: 02/18/19 19:14> - Vital signs Vitals: Temp Pulse Resp BP Pulse Ox 97.7 F 103 H 18 139/91 H 96 02/18/19 00:00 02/18/19 00:00 02/18/19 00:00 02/18/19 00:00 02/18/19 00:00 - Notes Notes: PHYSICAL EXAMINATION: GENERAL: Appears well, healthy, well-nourished, no acute distress. HEAD: Normocephalic, atraumatic. EYES: PERRL, conjunctiva normal, all extraocular movements intact, sclera nonicteric ENT: Moist mucous membranes. NECK: Supple, no noticeable swelling, redness, rash. Normal range of motion. LUNGS: Equal breath sounds bilaterally and clear to auscultation. No wheezes rales or rhonchi. CARDIOVASCULAR: S1-S2, regular rate, regular rhythm. Radial pulses 2+, normal. ABDOMEN: Normoactive bowel sounds. Soft, nontender, no guarding, no rebound tenderness, and no masses palpated. EXTREMITIES: Normal strength and range of motion, no pitting or edema. No cyanosis. NEUROLOGICAL: Moves all extremities upon command. Strength 5/5 in all extremities. PSYCH: Normal mood, normal affect. SKIN: Warm, dry. No rash, lesions, ulcerations noted. Normal skin turgor. (BERENICE HOWELL) Course - Laboratory Result Diagrams: 02/18/19 03:00 02/18/19 03:00 <VICTOR M AKINS - Last Filed: 02/18/19 12:29> - Laboratory Result Diagrams: 02/18/19 03:00 02/18/19 03:00 <RONBERENICE - Last Filed: 02/18/19 19:14> - Re-evaluation Re-evalutation: 02/18/19 10:50 Accepted patient from Berenice howell, SNAGG[facility]. MRI lumbar without any evidence of epidural abscess or infectious process. It did show high-grade central stenosis and recommended a flexion/extension plain film to assess L3-L4 for instability. It has been ordered. 02/18/19 12:30 Lumbar flexion-extension did not show any evidence of instability. At this time there is no indication that the patient needs to be transferred for neurosurg ical intervention. Patient is afebrile and vital signs are within normal limits. I have instructed patient to follow-up with the neurosurgeon that did his surgery in the past. Stable for discharge (VICTOR M AKINS) 02/18/19 05:30 Patient was seen by myself in triage. Awaiting CT results. His hematology and chemistry are both unremarkable. 02/18/19 06:[address] does show interval worsening of the patient's spine. The CT also does show his corrective surgeries he did had at [facility]. I spoke with Dr. Lovett in regards to this case. He is recommending that an MRI be ordered to be more specific on the cause of the patient's back pain. 02/18/19 08:00 Report was given to KARMEN Blake awaiting MRI results. Depending on what MRI results show, [facility] may be contacted, or the patient may follow-up outpatient. (BERENICE HOWELL) - Vital Signs Vital signs: Temp Pulse Resp BP Pulse Ox 98.1 F 83 16 126/83 H 97 02/18/19 13:27 02/18/19 13:27 02/18/19 13:27 02/18/19 13:27 02/18/19 13:27 - Laboratory Laboratory results interpreted by me: 02/18/19 02/18/19 03:00 03:00 RDW 14.5 H BUN 22 H Discharge <MARY AKINSEL - Last Filed: 02/18/19 12:29> <BERENICE HOWELL - Last Filed: 02/18/19 19:14> - Discharge Clinical Impression: Back pain Qualifiers: Back pain location: low back pain Chronicity: acute Back pain laterality: unspecified Sciatica presence: without sciatica Qualified Code(s): M54.5 - Low back pain Condition: Stable Disposition: HOME, SELF-CARE Additional Instructions: You have been seen in the Emergency Department (ED) today for back pain. Your workup and exam have not shown any acute abnormalities that will require emergent neurosurgical intervention. Please follow-up with the neurosurgeon that did your previous surgeries and call them this week to arrange an appointment. Please take Motrin 600 mg every 6 hours and/or Tylenol every 6 hours for pain/inflammation. You should also purchase a local lidocaine cream such as "aspercreme with lidocaine" and use per bottle instructions to the affected area. Apply heat to the area as often as you are able. Continue to keep active and avoid prolonged periods of bed rest. Please follow up with your doctor as soon as possible regarding today's ED visit and your back pain. Return to the ED for worsening back pain, fever, weakness or numbness of either leg, or if you develop either (1) an inability to urinate or have bowel movements, or (2) loss of your ability to control your bathroom functions (if you start having "accidents"), or if you develop other new symptoms that concern you.concern you.
--- NOTE | 2019-02-18 09:33 | RADIOLOGY REPORT (SQ) ---
EXAM DESCRIPTION: MRI LUMBAR SPINE WITHOUT COMPLETED DATE/TIME: 02/18/2019 8:59 am REASON FOR STUDY: back pain; hx of epidural abcess COMPARISON: CT lumbar spine 02/18/2019, 04/14/2008 MRI lumbar spine 01/23/2018 TECHNIQUE: Sagittal and Axial imaging includes T1, T2, STIR and gradient echo sequences. Coronal T2/ HASTE imaging. LIMITATIONS: Non contrasted study FINDINGS: Prior CT exam from 02/18/[address] was [address] the [address] exam sagittal reconstructions 18 thr ough 30, there is bilateral L3 spondylolysis, retrolisthesis of L3 over L4 and broad diffuse disc bul ge and bony spurring causing high-grade right and moderate to high-grade left foraminal narrowing at L3-4. At least moderate central canal stenosis is present. Upright flexion extension lumbar spine f ilms are recommended to evaluate for instability at the L3-[address] exam 02/18/2019 also demonstrates old remote prior fusion with incorporated disc material at L4-5 and L5-S1, old bilateral L4 and L5 laminectomy, and old screw tracts in the L5 and S1 pedicles, lower lumbar hardware has since been removed. CT demonstrates that the fusions at L4-5 and L5-S1 are complete across the disc spaces with bony bridging material at the disc levels. No significant cent ral or foraminal encroachment. MRI lumbar spine without contrast: VISUALIZED UPPER ABDOMEN: Limited evaluation. No acute or suspicious findings suggested. SEGMENTATION: No transitional anatomy. The lowest well-developed disc space is labeled L5-S1. ALIGNMENT: Mild convex leftward lumbar curvature. Mild retrolisthesis of L3 over L4 VERTEBRAE: No compression deformities BONE MARROW: Advanced degenerative endplate changes at the L3-4 level with dense bony sclerosis surro unded by fatty reactive change. Vertebral body endplates are irregular, unchanged from 02/18/2019 CT. There has been progressive disc space loss of height and progressive vertebral body endplate sclero sis at the L3-4 level since the MRI 01/23/2018 likely from healed fungal discitis by history DISC SIGNAL: The L3-4 disc space demonstrates high-grade disc space loss of height and vertebral body endplate irregularity. Trace fluid signal in the posterior half of the L3-4 intervertebral disc spa ce. Incorporated bone grafts at the L4-5 and L5-S1 remote prior fusion. The T11-12, T12-L1, L1-2, and L2 -3 discs demonstrate normal intrinsic signal and morphology POSTERIOR ELEMENTS: Old bilateral L4 and L5 laminectomy, bilateral L3 spondylolysis HARDWARE: None in the spine. CORD AND CONUS: Normal in size and signal intensity. Conus at the T12-L1 level. SOFT TISSUES: No aortic aneurysm seen. No bulky retroperitoneal adenopathy or mass. No paraspinal mas s or fluid. T11-12: At the upper edge of the field of view, unremarkable. T12-L1: Very mild bilateral facet hypertrophy. No central or foraminal stenosis. L1-L2: Mild bilateral facet hypertrophy. No central or foraminal encroachment. L2-L3: Minimal diffuse posterior disc bulging, moderate bilateral facet and ligamentum flavum thicken ing. No central stenosis. Mild bilateral foraminal narrowing without exiting L2 nerve root impingem ent L3-L4: Bilateral L3 spondylolysis is present with slight retrolisthesis of L3 over L4. This finding along with broad diffuse posterior disc bulge and bony spurring and bulky bilateral facet and ligamen t hypertrophy causes moderate to high-grade central canal stenosis, with effacement of the CSF around the lumbar nerve roots and flattening of the thecal sac into a triangular shape best shown on axial T2 image 18 and sagittal T2 image 8. Elsewhere at L3-4, there is high-grade bilateral foraminal narrowing with flattening of the L3 nerve roots within the neural foramina left greater than right. L4-L5: Remote prior durable fusion with incorporated disc space prosthesis and old bilateral laminect mone. No central stenosis. Mild bilateral foraminal narrowing without exiting L4 nerve root impingem ent. L5-S1: Remote prior durable fusion with incorporated disc space prosthesis and old bilateral laminect mone. No central stenosis. Mild bilateral foraminal narrowing without exiting L5 nerve root impingem ent SACRUM: Visualized upper sacrum intact. OTHER: No other significant findings. IMPRESSION: Moderate to high-grade central canal stenosis at L3-4 related to retrolisthesis of L3 ov er L4, bilateral spondylolysis, and mild diffuse posterior disc bulging with bilateral facet and liga ment hypertrophy. Upright flexion and extension lumbar spines films are recommended to assess for in stability at L3-4. No paraspinal mass or phlegmon currently, given history of postoperative fungal infection. No MR katya dence of epidural abscess on this non contrasted study. TECHNICAL DOCUMENTATION: JOB ID: [id number] [employer]- All Rights Reserved Reading location - IP/workstation name: [email or web address]
--- NOTE | 2019-02-18 12:28 | RADIOLOGY REPORT (SQ) ---
EXAM DESCRIPTION: L SPINE W/FLEX/EXT COMPLETED DATE/TIME: 02/18/2019 11:42 am REASON FOR STUDY: ?instability L3-L4 COMPARISON: None. NUMBER OF VIEWS: Seven view TECHNIQUE: AP and lateral views of the lumbar spine with flexion and extension. LIMITATIONS: None. FINDINGS: MINERALIZATION: Normal. SEGMENTATION: Normal. No transitional anatomy. ALIGNMENT: Normal. FLEXION/EXTENSION: No instability. VERTEBRAE: There is endplate irregularity in the inferior endplate of L3 and the superior endplate of L4. DISCS: Disc implants are present at L4-5 and L5-S1. The L3-4 disc space is narrowed. See above. POSTERIOR ELEMENTS: Laminectomy changes at L4 and L5. Lateral fusions at L4-5 and L5-S1. HARDWARE: None in the spine. OTHER: No other significant finding. IMPRESSION: Degenerative disc changes at L3-4. Endplate irregularities raise the possibility of dis citis. Surgical changes. No instability on flexion/ extension. TECHNICAL DOCUMENTATION: JOB ID: [id number] [employer]- All Rights Reserved Reading location - IP/workstation name: [email or web address]
[2019-02-18] MEDS ORDERED: HYDROCODONE/ACETAMINOPHEN 5-325 MG (6 TAB/ER DISP) PO PRN (12:41)
[2019-02-18 13:27] VITALS: BP 126/83
== END 2019-02-18 13:28 | disposition home or self-care (01) ==
LOC: ER 23:54
DX: M48.061 Spinal stenosis, lumbar region without neurogenic claudication (principal); M54.5 Low back pain; F17.200 Nicotine dependence, unspecified, uncomplicated; J45.909 Unspecified asthma, uncomplicated; Z98.890 Other specified postprocedural states
CPT/HCPCS: 99285; 36415; 87040; 85025; 87077; 80053; 87186; 72148; 72114; 72132; J1885

== ENCOUNTER 2019-04-26 16:05 | Emergency (ER) | payer SELFPAY ==
--- NOTE | 2019-04-26 16:42 | ER Document Report ---
ED Medical Screen (RME) - General Chief Complaint: Testicular Swelling Stated Complaint: SWELLING Time Seen by Provider: 04/26/19 16:35 Mode of Arrival: Ambulatory Information source: Patient Notes: Patient is a 33-year-old male presents emergency department chief complaint of right testicular swelling that started this morning. Patient also reports pain with urination. He denies the possibility of any STDs. Exam: Patient alert, oriented, answering all questions appropriately. No acute distress noted. I have greeted and performed a rapid initial assessment of this patient. A comprehensive ED assessment and evaluation of the patient, analysis of test results and completion of the medical decision making process will be conducted by additional ED providers. I have specifically instructed the patient or family members with the patient to immediately return to any nursing staff should anything change in the patient's condition or with their chief complaint. This medical record was dictated with voice recognizing software. There may be grammatical, syntax errors that are unintended. TRAVEL OUTSIDE OF THE [place] IN LAST 30 DAYS: No - Related Data Allergies/Adverse Reactions: No Known Allergies Allergy (Verified 08/11/18 13:57) Past Medical History - Social History Chew tobacco use (# tins/day): No Frequency of alcohol use: None Drug Abuse: None Pulmonary Medical History: Reports: Hx Asthma Renal/ Medical History: Denies: Hx Peritoneal Dialysis Musculoskeltal Medical History: Reports Hx Arthritis, Reports Hx Musculoskeletal Deformity, Reports Hx Musculoskeletal Trauma Psychiatric Medical History: Reports: Hx Anxiety, Hx Bipolar Disorder, Hx Depression Past Surgical History: Reports: Hx Orthopedic Surgery - L4 L5 FUSION 2010, hardware removed from the spine due to infection - Immunizations Immunizations up to date: Yes Hx Diphtheria, Pertussis, Tetanus Vaccination: Yes - unknown Physical Exam - Vital signs Vitals: Temp Pulse Resp BP Pulse Ox 98.4 F 99 18 122/88 H 99 04/26/19 16:24 04/26/19 16:24 04/26/19 16:24 04/26/19 16:24 04/26/19 16:24 Course - Vital Signs Vital signs: Temp Pulse Resp BP Pulse Ox 98.4 F 99 18 122/88 H 99 04/26/19 16:24 04/26/19 16:24 04/26/19 16:24 04/26/19 16:24 04/26/19 16:24
[2019-04-26 17:24] LABS: APPEARANCE,URINE TURBID; BILIRUBIN,URINE SMALL (NEGATIVE); COLOR,URINE YELLOW; GLUCOSE, URINE NEGATIVE (NEGATIVE); KETONES,URINE TRACE mg/dL (NEGATIVE); LEUKOCYTE ESTERASE,URINE MODERATE (NEGATIVE); NITRITE,URINE NEGATIVE (NEGATIVE); PROTEIN,URINE >=500 mg/dL (NEGATIVE); URINE SPECIFIC GRAVITY 1.033
[2019-04-26] MEDS ORDERED: DOXYCYCLINE HYCLATE 100 MG TABLET PO ONE (18:46)
[2019-04-26] MEDS ORDERED: ONDANSETRON HCL INJ/PF 4 MG/2 ML SDV IV ONE (18:47)
[2019-04-26] MEDS ORDERED: MORPHINE SULFATE 10 MG/ML INJ IV ONE (18:47)
[2019-04-26 18:54] LABS: CHLAM PCR NOT DETECTED (NOT DETECT)
--- NOTE | 2019-04-26 19:02 | RADIOLOGY REPORT (SQ) ---
EXAM DESCRIPTION: U/S SCROTUM W/DOPPLER COMPLETED DATE/TIME: 04/26/2019 6:13 pm REASON FOR STUDY: R testicular swelling COMPARISON: 04/13/2018 TECHNIQUE: Static and realtime [place] scale imaging of the scrotum and testes. Selected color Doppler and spectral images recorded to document blood flow. LIMITATIONS: None. FINDINGS: RIGHT: TESTICLE: Normal size, 3.2 x 2.6 x 2.2 cm. Normal echotexture. Normal blood flow. No mass. EPIDIDYMIS: 15 mm. Hyperemic. HYDROCELE OR VARICOCELE: No. HERNIA OR EXTRA-TESTICULAR MASS: No. OTHER: Testicular microlithiasis. LEFT: TESTICLE: Normal size, 3.3 x 2.9 x 1.6 cm. . Normal echotexture. Normal blood flow. No mass. EPIDIDYMIS: 17 mm. HYDROCELE OR VARICOCELE: No. HERNIA OR EXTRA-TESTICULAR MASS: No. OTHER: Testicular microlithiasis. IMPRESSION: 1. Likely right epididymitis. 2. Bilateral testicular microlithiasis, incidental finding. TECHNICAL DOCUMENTATION: JOB ID: [id number]- All Rights Reserved Reading location - IP/workstation name: [email or web address]
[2019-04-26] MEDS: CEFTRIAXONE 1 GM/D5W RTU 1 GM/50 ML RTUPB IV ONE ×2 (19:11→19:25)
--- NOTE | 2019-04-26 19:17 | ER Document Report ---
ED General - General Chief Complaint: Testicular Swelling Stated Complaint: SWELLING Time Seen by Provider: 04/26/19 16:35 Mode of Arrival: Ambulatory TRAVEL OUTSIDE OF THE [place] IN LAST 30 DAYS: No - HPI Notes: Patient presents with 2 to 3 days of right testicular pain. He also states that he has noticed that the right testicle has been swelling. He states the pain is constant. It is worse with movement and better with rest. It does radiate up into his abdomen. It is moderate in intensity. It is dull and aching. He states he does have a previous history of fungal infection of the spine from IV drug use. States he has not used any IV drugs in the last 6 months. No trauma to the testicles. He states he has had penile discharge. No fevers vomiting or diarrhea. - Related Data Allergies/Adverse Reactions: No Known Allergies Allergy (Verified 08/11/18 13:57) Past Medical History - General Information source: Patient - Social History Smoking Status: Current Every Day Smoker Chew tobacco use (# tins/day): No Frequency of alcohol use: None Drug Abuse: None Family History: Arthritis, Hyperlipidemia, Hypertension. denies: CAD, COPD, CVA, DM, Malignancy, Thyroid Disfunction Patient has suicidal ideation: No Patient has homicidal ideation: No Pulmonary Medical History: Reports: Hx Asthma Renal/ Medical History: Denies: Hx Peritoneal Dialysis Musculoskeletal Medical History: Reports Hx Arthritis, Reports Hx Musculoskeletal Deformity, Reports Hx Musculoskeletal Trauma Psychiatric Medical History: Reports: Hx Anxiety, Hx Bipolar Disorder, Hx Depression Past Surgical History: Reports: Hx Orthopedic Surgery - L4 L5 FUSION 2010, hardware removed from the spine due to infection - Immunizations Immunizations up to date: Yes Hx Diphtheria, Pertussis, Tetanus Vaccination: Yes - unknown Review of Systems - Review of Systems Constitutional: denies: Chills, Fever Cardiovascular: denies: Chest pain, Palpitations Respiratory: denies: Cough, Hurts to breathe, Short of breath -: Yes All other systems reviewed and negative Physical Exam - Vital signs Vitals: Temp Pulse Resp BP Pulse Ox 98.4 F 99 18 122/88 H 99 04/26/19 16:24 04/26/19 16:24 04/26/19 16:24 04/26/19 16:24 04/26/19 16:24 Interpretation: Normal - General General appearance: Appears well, Alert - HEENT Head: Normocephalic, Atraumatic Eyes: Normal Pupils: PERRL - Respiratory Respiratory status: No respiratory distress Chest status: Nontender Breath sounds: Normal Chest palpation: Normal - Cardiovascular Rhythm: Regular Heart sounds: Normal auscultation Murmur: No - Abdominal Inspection: Normal Distension: No distension Bowel sounds: Normal Tenderness: Nontender Organomegaly: No organomegaly - Genitourinary Tenderness: Testicle tender, Epididymis tender - Patient right testicle is swollen. It is tender diffusely. There is no evidence of torsion. Exam is consistent with epididymitis. He does have some mild penile discharge. He has no significant left testicular findings Scrotum: Swelling, Redness - Back Back: Normal, Nontender - Extremities General upper extremity: Normal inspection, Nontender, Normal color, Normal ROM, Normal temperature General lower extremity: Normal inspection, Nontender, Normal color, Normal ROM, Normal temperature, Normal weight bearing. No: Georgie's sign - Neurological Neuro grossly intact: Yes Cognition: Normal Orientation: AAOx4 Chrissy Coma Scale Eye Opening: Spontaneous [place] Coma Scale Verbal: Oriented Chrissy Coma Scale Motor: Obeys Commands [place] Coma Scale Total: 15 Speech: Normal Motor strength normal: LUE, RUE, LLE, RLE Sensory: Normal - Psychological Associated symptoms: Normal affect, Normal mood - Skin Skin Temperature: Warm Skin Moisture: Dry Skin Color: Normal Course - Re-evaluation Re-evalutation: 04/26/19 19:15 Patient has a swollen tender right testicle. Exam and laboratories are consistent with epididymitis. I will treat the patient with Rocephin and discharge him home with doxycycline. Patient does not appear toxic or septic at this time. - Vital Signs Vital signs: Temp Pulse Resp BP Pulse Ox 98.4 F 99 18 122/88 H 99 04/26/19 16:24 04/26/19 16:24 04/26/19 16:24 04/26/19 16:24 04/26/19 16:24 - Laboratory Laboratory results interpreted by me: 04/26/19 04/26/19 16:55 16:55 Urine Protein >=500 H Urine Ketones TRACE H Urine Blood MODERATE H Urine Bilirubin SMALL H Urine Urobilinogen 2.0 H Ur Leukocyte Esterase MODERATE H Urine Ascorbic Acid 40 H N.gonorrhoeae DNA (PCR) DETECTED H - Diagnostic Test Radiology reviewed: Image reviewed, Reports reviewed Radiology results interpreted by me: 04/26/19 19:15 Scrotum Ultrasound 04/26/19 16:35 IMPRESSION: 1. Likely right epididymitis. 2. Bilateral testicular microlithiasis, incidental finding. Discharge - Discharge Clinical Impression: Epididymitis Condition: Stable Disposition: HOME, SELF-CARE Instructions: Epididymitis (OM) Additional Instructions: Please call Dr. Liang or the urologist of your choice in the morning to arrange follow-up Prescriptions: Doxycycline Hyclate 100 mg PO BID 10 Days #20 capsule Hydrocodone/Acetaminophen [[place] 5-325 mg Tablet] 1 tab PO Q6 PRN 3 Days #12 tablet PRN Reason: Referrals: MIKE LIANG MD [NO LOCAL MD] - Follow up as needed
[2019-04-26 19:45] VITALS: BP 113/74
== END 2019-04-26 19:46 | disposition home or self-care (01) ==
LOC: ER 16:05
DX: N45.1 Epididymitis (principal); N50.811 Right testicular pain; F17.200 Nicotine dependence, unspecified, uncomplicated; Z98.1 Arthrodesis status
CPT/HCPCS: 81001; 87491; 87591; 76870; 93976; J2270; J2405; J0696; 96365; 96375; 99284

== ENCOUNTER 2019-10-04 13:23 | Emergency (ER) | payer SELFPAY ==
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
--- NOTE | 2019-10-04 15:22 | RADIOLOGY REPORT (SQ) ---
EXAM DESCRIPTION: HAND LEFT 3 VIEWS COMPLETED DATE/TIME: 10/04/2019 3:14 pm REASON FOR STUDY: 3rd digit bone injury COMPARISON: None. EXAM PARAMETERS: NUMBER OF VIEWS: Three views. TECHNIQUE: AP, lateral and oblique radiographic images acquired of the left hand. LIMITATIONS: None. FINDINGS: MINERALIZATION: Normal. BONES: No acute fracture or dislocation. No worrisome bone lesions. JOINTS: DIP of the 3rd digit is fixed in a flexed position. No underlying fracture. SOFT TISSUES: No soft tissue swelling. No foreign body. OTHER: No other significant finding. IMPRESSION: DIP of the 3rd digit is fixed in a flexed position. No underlying fracture. TECHNICAL DOCUMENTATION: JOB ID: [id number] [employer]- All Rights Reserved Reading location - IP/workstation name: [email or web address]
[2019-10-04 16:18] VITALS: BP 117/69
== END 2019-10-04 16:25 | disposition home or self-care (01) ==
LOC: ER 13:23
DX: M20.012 Mallet finger of left finger(s) (principal); M79.645 Pain in left finger(s); F17.200 Nicotine dependence, unspecified, uncomplicated; Z98.1 Arthrodesis status
CPT/HCPCS: 99283

== ENCOUNTER 2019-11-28 16:59 | Inpatient (IN) | payer OTHER ==
--- NOTE | 2019-11-28 17:05 | ER Document Report ---
ED Medical Screen (RME) - General Chief Complaint: Abscess Stated Complaint: ABSCESS/RIGHT ARM Time Seen by Provider: 11/28/19 17:01 Mode of Arrival: Ambulatory Information source: Patient Notes: 34-year-old male presented to ED for an abscess to the right forearm. He also has another open sore lower on the arm. He does have some tracking up past the antecubital space. He is alert oriented respirations regular nonlabored speaking in full sentences. His pulse is 111 with a temp of 97.9. He states his pain is sharp and throbbing. I have greeted and performed a rapid initial assessment of this patient. A comprehensive ED assessment and evaluation of the patient, analysis of test results and completion of medical decision making process will be conducted by an additional ED providers. TRAVEL OUTSIDE OF THE [place] IN LAST 30 DAYS: No - Related Data Allergies/Adverse Reactions: No Known Allergies Allergy (Verified 10/04/19 14:56) Past Medical History Pulmonary Medical History: Reports: Hx Asthma Renal/ Medical History: Denies: Hx Peritoneal Dialysis Musculoskeltal Medical History: Reports Hx Arthritis, Reports Hx Musculoskeletal Deformity, Reports Hx Musculoskeletal Trauma Psychiatric Medical History: Reports: Hx Anxiety, Hx Bipolar Disorder, Hx Depression Past Surgical History: Reports: Hx Orthopedic Surgery - L4 L5 FUSION 2010, hardware removed from the spine due to infection - Immunizations Immunizations up to date: Yes Hx Diphtheria, Pertussis, Tetanus Vaccination: Yes - unknown
[2019-11-28] MEDS ORDERED: LIDOCAINE 1%/EPINEPHRINE INJ 20 ML VIAL INJ ONE (17:30)
[2019-11-28] MEDS ORDERED: NORMAL SALINE 1000 ML 1,000 ML IV ONE ×2 (17:50→18:23)
[2019-11-28 17:53] LABS: HEMATOCRIT 46.9 % (37.9-51.0); HEMOGLOBIN 15.7 g/dL (13.5-17.0); MEAN CORPUSCULAR HEMOGLOBIN 29.5 pg (27.0-33.4); MEAN CORPUSCULAR HGB CONC 33.5 g/dL (32.0-36.0); MEAN CORPUSCULAR VOLUME 88 fl (80-97); PLATELET COUNT 407 10^3/uL (150-450); RED BLOOD COUNT 5.32 10^6/uL (4.35-5.55); RED CELL DISTRIBUTION WIDTH 14.3 % (11.5-14.0); WHITE BLOOD COUNT 22.6 10^3/uL (4.0-10.5)
--- NOTE | 2019-11-28 17:53 | ER Document Report ---
ED General - General Chief Complaint: Abscess Stated Complaint: ABSCESS/RIGHT ARM Time Seen by Provider: 11/28/19 17:01 Mode of Arrival: Ambulatory Information source: Patient TRAVEL OUTSIDE OF THE [place] IN LAST 30 DAYS: No - HPI Onset: Other - over the last several days Onset/Duration: Gradual Quality of pain: Pressure, Throbbing Severity: Moderate Pain Level: 3 Associated symptoms: Other - pain, swelling, redness of right forearm with tracking redness up upper arm. Mild drainage from right forearm. Multiple other area of skin redness/swelling/scabing Exacerbated by: Other - movement of right arm Relieved by: Denies Similar symptoms previously: No Recently seen / treated by doctor: No Notes: 34 year old male with a history of IV Drug Use here for a painful, red, swollen right forearm (volar side) with mild spontaneous drainage. The patient admits to recently shooting up heroin but he claims he has only done so in his left arm as of late. The patient denies fevers, chills, sweats, nausea, vomiting. - Related Data Allergies/Adverse Reactions: No Known Allergies Allergy (Verified 10/04/19 14:56) Past Medical History - General Information source: Patient - Social History Smoking Status: Current Every Day Smoker Family History: Arthritis, Hyperlipidemia, Hypertension. denies: CAD, COPD, CVA, DM, Malignancy, Thyroid Disfunction Patient has suicidal ideation: No Patient has homicidal ideation: No Pulmonary Medical History: Reports: Hx Asthma Renal/ Medical History: Denies: Hx Peritoneal Dialysis Musculoskeletal Medical History: Reports Hx Arthritis, Reports Hx Musculoskeletal Deformity, Reports Hx Musculoskeletal Trauma Psychiatric Medical History: Reports: Hx Anxiety, Hx Bipolar Disorder, Hx Depression Past Surgical History: Reports: Hx Orthopedic Surgery - L4 L5 FUSION 2010, hardware removed from the spine due to infection - Immunizations Immunizations up to date: Yes Hx Diphtheria, Pertussis, Tetanus Vaccination: Yes - unknown Review of Systems - Review of Systems Constitutional: No symptoms reported EENT: No symptoms reported Cardiovascular: No symptoms reported Respiratory: No symptoms reported Gastrointestinal: No symptoms reported Genitourinary: No symptoms reported Male Genitourinary: No symptoms reported Musculoskeletal: No symptoms reported Skin: Other - redness, swelling, warmth, drainage of a scabed over are on right forearm (volar side) Hematologic/Lymphatic: No symptoms reported Neurological/Psychological: No symptoms reported -: Yes All other systems reviewed and negative Physical Exam - Vital signs Vitals: Temp Pulse Resp BP Pulse Ox 97.9 F 111 H 20 124/75 100 11/28/19 17:04 11/28/19 17:04 11/28/19 17:04 11/28/19 17:04 11/28/19 17:04 - Notes Notes: GENERAL: Poorly groomed, in mild distress, well-nourished HEAD: Atraumatic, normocephalic. EYES: Pupils equal round and reactive to light, extraocular movements intact, sclera anicteric, conjunctiva are normal. ENT: Nares patent, oropharynx clear without exudates. Moist mucous membranes. NECK: Normal range of motion, supple without lymphadenopathy or JVD. LUNGS: Breath sounds clear to auscultation bilaterally and equal. No wheezes rales or rhonchi. HEART: Tachycardic with regluar rhythm without murmurs, rubs or gallops. ABDOMEN: Soft, nontender, normoactive bowel sounds. No guarding, no rebound. No masses appreciated. EXTREMITIES: Normal range of motion, no pitting or edema. No clubbing or cyanosis. NEUROLOGICAL: Cranial nerves II through XII grossly intact. Normal speech, normal gait. PSYCH: Normal mood, normal affect. SKIN: Diffuse scabbed over wounds on both arms with mild surrounding erythema. Right forearm with area of erythema, warmth, swelling, with Course - Re-evaluation Re-evalutation: 11/28/19 18:11 The patient is a known IV drug abuser and he has an abscess with cellulitis of his right forearm. I performed an I&D and packed his right forearm. There was only mild pus drainage so most of the firm area was likely indurated tissue. Since patient was tachycardic and has red streaks tracking up his arm, will admit the patient for IV Antibiotics (Vanc and Zosyn). Patient also treated with fluids (2L of NS). Patient admitted to a Tele bed. - Vital Signs Vital signs: Temp Pulse Resp BP Pulse Ox 97.9 F 111 H 20 124/75 100 11/28/19 17:04 11/28/19 17:04 11/28/19 17:04 11/28/19 17:04 11/28/19 17:04 - Laboratory Result Diagrams: 11/28/19 17:23 11/28/19 17:23 Laboratory results interpreted by me: 11/28/19 11/28/19 17:23 17:23 WBC 22.6 H RDW 14.3 H Seg Neuts % (Manual) 85 H Lymphocytes % (Manual) 5 L Abs Neuts (Manual) 19.2 H Absolute Eos (Manual) 0.7 H Chloride 97 L Calcium 10.6 H Alkaline Phosphatase 136 H Total Protein 9.6 H Albumin 5.2 H Procedures - Incision and Drainage Right Mid Forearm (volar side) Type: Single Anesthetic type: 1% Lidocaine w/epi mL's of anesthetic: 8 Blade size: 11 I&D procedure: Chlorprep applied, Iodoform packing placed Incision Method: Incision made by scalpel Discharge - Discharge Clinical Impression: Cellulitis of forearm, right, Abscess of forearm, right Condition: Fair Disposition: ADMITTED INPATIENT Admitting Provider: Dario (Hospitalist) Unit Admitted: Telemetry
[2019-11-28] MEDS ORDERED: VANCOMYCIN HCL INJ 1000 MG VIAL IV ONE (17:55)
[2019-11-28] MEDS ORDERED: PIPERACILLIN/TAZOBACTAM 3.375 GM VIAL IV ONE ×2 (17:55→21:44)
[2019-11-28 17:57] LABS: ALBUMIN 5.2 g/dL (3.5-5.0); ALKALINE PHOSPHATASE 136 U/L (38-126); ANION GAP 15 (5-19); ASPARTATE AMINO TRANSFERASE 40 U/L (17-59); BILIRUBIN,DIRECT 0.3 mg/dL (0.0-0.4); BLOOD UREA NITROGEN 11 mg/dL (7-20); CALCIUM 10.6 mg/dL (8.4-10.2); CARBON DIOXIDE 28 mmol/L (22-30); CHLORIDE 97 mmol/L (98-107); GLUCOSE 89 mg/dL (75-110); POTASSIUM 4.2 mmol/L (3.6-5.0); TOTAL PROTEIN 9.6 g/dL (6.3-8.2)
[2019-11-28] MEDS ORDERED: DEXTROSE 5%-NORMAL SALINE 1,000 ML IV PRN (18:17)
[2019-11-28] MEDS ORDERED: ACETAMINOPHEN 325 MG TABLET PO PRN (18:17)
[2019-11-28] MEDS ORDERED: LEVALBUTEROL HCL NEB 0.63 MG/3 ML AMPUL NEB PRN (18:17)
[2019-11-28] MEDS ORDERED: PROMETHAZINE HCL INJ 25 MG/1 ML VIAL IV PRN (18:17)
[2019-11-28 18:18] LABS: ABSOLUTE LYMPHOCYTES# (MANUAL) 1.1 10^3/uL (0.5-4.7); ABSOLUTE MONOCYTES # (MANUAL) 1.4 10^3/uL (0.1-1.4); BASOPHILS % (MANUAL) 1 % (0-2); EOSINOPHILS % (MANUAL) 3 % (0-6); LYMPHOCYTES % (MANUAL) 5 % (13-45); MONOCYTES % (MANUAL) 6 % (3-13); SEGMENTED NEUTROPHILS % (MAN) 85 % (42-78); TOTAL CELLS COUNTED 100
[2019-11-28 18:20] LABS: ANISOCYTOSIS SLIGHT
[2019-11-28 18:21] LABS: PLATELET COMMENT ADEQUATE
[2019-11-28] MEDS ORDERED: LORAZEPAM INJ 2 MG/1 ML VIAL IV PRN (18:21)
[2019-11-28] MEDS ORDERED: DIAZEPAM INJ 10 MG/2 ML DISP.SYRIN IV PRN (18:21)
[2019-11-28] MEDS ORDERED: HYDRALAZINE HCL INJ/PF 20 MG/1 ML SDV IV PRN (18:24)
[2019-11-28] MEDS ORDERED: VANCOMYCIN HCL 0 MG in DEXTROSE 5%-WATER 250 ML IV NR (18:30)
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
[2019-11-28 19:24] LABS: URINE BARBITURATES SCREEN NEGATIVE; URINE BENZODIAZEPINES SCREEN NEGATIVE; URINE METHADONE SCREEN NEGATIVE; URINE PHENCYCLIDINE SCREEN NEGATIVE
[2019-11-28 21:05] LABS: URINE COCAINE SCREEN UNCONFIRMED POSITIVE
[2019-11-28 21:06] LABS: URINE MARIJUANA (THC) SCREEN UNCONFIRMED POSITIVE
[2019-11-28] MEDS: OXYCODONE-ACETAMINOPHEN 5-325 MG TABLET PO PRN (21:06)
[2019-11-28] MEDS ORDERED: VANCOMYCIN HCL INJ 1000 MG VIAL ONE ×2 (21:44→21:45)
[2019-11-28] MEDS ORDERED: VANCOMYCIN HCL 2,000 MG in DEXTROSE 5%-WATER 500 ML IV ONE (22:45)
[2019-11-29] MEDS: FAMOTIDINE 20 MG TABLET PO SCH ×3 (00:51→21:27)
[2019-11-29] MEDS: PIPERACILLIN SODIUM/TAZOBACTAM 3.375 GM in NORMAL SALINE 100 ML IV SCH ×4 (00:51→18:38)
[2019-11-29] MEDS: HEPARIN SOD (PORCINE) 5,000 UNIT/ML 1 ML VIAL SUBCUT SCH ×4 (00:51→21:29)
[2019-11-29] MEDS ORDERED: VANCOMYCIN HCL 1,250 MG in DEXTROSE 5%-WATER 250 ML IV SCH ×2 (02:00→07:00)
[2019-11-29] MEDS: OXYCODONE-ACETAMINOPHEN 5-325 MG TABLET PO PRN ×2 (05:14→20:23)
--- NOTE | 2019-11-29 05:45 | PDOC CONSULTATION ---
Consultation Consult Date: 11/29/19 Provider Consulted: SURGICAL SURGICALIST MD Consult reason:: right arm abscess History of Present Illness Admission Date/PCP: 11/28/19 18:14 History of Present Illness: CHINTAN DODGE is a 34 year old male seen in consultation at the request of the hospitalist service. This patient has a one-week history of pain and swelling in the right upper extremity. He has a history of intravenous drug abuse. The patient presented with an abscess of the right forearm. Incision and drainage was performed in the emergency department. The patient continues to complain of swelling and pain of the right forearm. Currently, he denies fevers, chills, nausea, vomiting, headache, chest pain, shortness of breath, abdominal pain, melena, hematochezia, hematemesis, dizziness, orthostasis, blurry vision. He does complain of right upper extremity pain, 10 out of 10. His pain is sharp and stabbing. He denies paresthesias of the right upper extremity, or loss of motor function. Nothing makes his pain better. Direct palpation on the indurated area makes his pain worse. Past Medical History Pulmonary Medical History: Reports: Asthma Musculoskeltal Medical History: Reports: Arthritis Psychiatric Medical History: Reports: Bipolar Disorder, Depression Past Surgical History Past Surgical History: Reports: Orthopedic Surgery - L4 L5 FUSION 2010, hardware removed from the spine due to infection Social History Smoking Status: Current Every Day Smoker Cigarettes Packs Per Day: 1 Drugs: Cocaine, Heroin, Marijuana Family History Family History: Arthritis, Hyperlipidemia, Hypertension. denies: CAD, COPD, CVA, DM, Malignancy, Thyroid Disfunction Parental Family History Reviewed: Yes Children Family History Reviewed: Yes Sibling(s) Family History Reviewed.: Yes Medication/Allergy Home Medications: Cyclobenzaprine HCl [Flexeril 10 mg Tablet] 10 mg PO TIDP PRN #15 tab 11/24/17 Prednisone 10 mg PO DAILY #21 tablet 11/24/17 Penicillin V Potassium [Penicillin Vk 500 mg Tablet] 500 mg PO BID #20 tablet 05/01/18 Cephalexin Monohydrate [Keflex 500 mg Capsule] 500 mg PO Q6H 5 Days capsule 07/28/18 Naproxen [Naprosyn 250 Nmg Tablet] 1 tab PO BID #14 tablet 07/28/18 Sulfamethoxazole/Trimethoprim [Bactrim Ds Tablet] 1 each PO BID #20 tablet 07/28/18 Cephalexin Monohydrate [Keflex 500 mg Capsule] 500 mg PO Q6H 7 Days #28 capsule 08/11/18 Oxycodone HCl/Acetaminophen [Percocet 5-325 mg Tablet] 1 tab PO Q4H PRN #10 tablet 08/11/18 Sulfamethoxazole/Trimethoprim [Bactrim Ds Tablet] 1 each PO BID #14 tablet 08/11/18 Doxycycline Hyclate 100 mg PO BID 10 Days #20 capsule 04/26/19 Hydrocodone/Acetaminophen [[place] 5-325 mg Tablet] 1 tab PO Q6 PRN 3 Days #12 tablet 04/26/19 Allergies/Adverse Reactions: No Known Allergies Allergy (Verified 10/04/19 14:56) Review of Systems Constitutional: ABSENT: anorexia, chills Eyes: ABSENT: visual disturbances Ears: ABSENT: hearing changes Nose, Mouth, and Throat: ABSENT: mouth pain, sore throat Cardiovascular: ABSENT: chest pain Respiratory: ABSENT: cough Gastrointestinal: ABSENT: abdominal pain Genitourinary: ABSENT: difficulty urinating Musculoskeletal: ABSENT: back pain Neurological: ABSENT: confusion, convulsions, dizziness Psychiatric: ABSENT: anxiety, depression Endocrine: ABSENT: cold intolerance, heat intolerance Hematologic/Lymphatic: ABSENT: easy bleeding, easy bruising Physical Exam Vital Signs: Temp Pulse Resp BP Pulse Ox 98.7 F 103 H 17 125/82 100 11/28/19 23:42 11/29/19 02:00 11/28/19 23:42 11/28/19 23:42 11/28/19 23:42 Intake & Output 11/27/19 11/28/19 11/29/19 06:59 06:59 06:59 Intake Total 100 Balance 100 Weight 67.6 kg General appearance: PRESENT: no acute distress, cooperative Head exam: PRESENT: atraumatic, normocephalic Eye exam: PRESENT: EOMI, PERRLA. ABSENT: scleral icterus Mouth exam: PRESENT: moist, neck supple Neck exam: ABSENT: meningismus, tenderness, thyromegaly, tracheal deviation Respiratory exam: ABSENT: tachypnea Cardiovascular exam: ABSENT: tachycardia Pulses: PRESENT: normal radial pulses Vascular exam: PRESENT: normal capillary refill GI/Abdominal exam: PRESENT: soft. ABSENT: distended, firm, tenderness Rectal exam: PRESENT: deferred Extremities exam: ABSENT: clubbing Musculoskeletal exam: ABSENT: deformity Neurological exam: PRESENT: alert, awake, oriented to person, oriented to place, oriented to time, oriented to situation, CN II-XII grossly intact Psychiatric exam: ABSENT: agitated, anxious, depressed Focused psych exam: ABSENT: delusional Skin exam: PRESENT: other - 5 cm area of induration on the right forearm, ventral aspect. 2 cm open incision, without significant purulent drainage. There is erythema present. Results Laboratory Results: 11/28/19 17:23 11/28/19 17:23 11/28/19 11/28/19 11/28/19 17:23 17: 17:23 WBC 22.6 H RBC 5.32 Hgb 15.7 Hct 46.9 MCV 88 MCH 29.5 MCHC 33.5 RDW 14.3 H Plt Count 407 Seg Neutrophils % Not Reportable Sodium 139.6 Potassium 4.2 Chloride 97 L Carbon Dioxide 28 Anion Gap 15 BUN 11 Creatinine 0.66 Est GFR ( Amer) > 60 Glucose 89 Calcium 10.6 H Total Bilirubin 1.0 AST 40 Alkaline Phosphatase 136 H C-Reactive Protein 45.4 H Total Protein 9.6 H Albumin 5.2 H Assessment & Plan - Diagnosis (1) Abscess of forearm, right Is this a current diagnosis for this admission?: Yes - Plan Summary Plan Summary: This is a 34-year-old male with an abscess in the right forearm. He has undergone incision and drainage in the emergency department. At present, there is no significant purulent drainage. There is a large amount of induration and erythema present. I have discussed the patient's care with him at length. I believe it is reasonable to monitor the arm for 24 to 48 hours. If the patient does not have improvement, he may require further incision and drainage. At this time, I cannot identify any further abscess cavity on physical exam. Continue with broad-spectrum antibiotic coverage (Vanco and Zosyn is currently prescribed). Damp to dry dressing changes with packing twice daily. Surgery will follow.
[2019-11-29] MEDS ORDERED: VANCOMYCIN HCL INJ 500 MG VIAL ONE (06:38)
[2019-11-29 07:10] LABS: ABSOLUTE BASOPHILS # (AUTO) 0.1 10^3/uL (0.0-0.2); ABSOLUTE EOSINOPHILS # (AUTO) 0.3 10^3/uL (0.0-0.6); ABSOLUTE LYMPHOCYTES (AUTO) 1.5 10^3/uL (0.5-4.7); ABSOLUTE MONOCYTES (AUTO) 1.6 10^3/uL (0.1-1.4); ABSOLUTE NEUT (AUTO) 12.8 10^3/uL (1.7-8.2); BASOPHILS % (AUTO) 0.5 % (0-2); EOSINOPHILS % (AUTO) 1.8 % (0-6); HEMATOCRIT 38.9 % (37.9-51.0); LYMPHOCYTES % (AUTO) 9.3 % (13-45); MEAN CORPUSCULAR HEMOGLOBIN 29.6 pg (27.0-33.4); MEAN CORPUSCULAR HGB CONC 34.3 g/dL (32.0-36.0); MEAN CORPUSCULAR VOLUME 86 fl (80-97); MONOCYTES % (AUTO) 9.7 % (3-13); PLATELET COUNT 285 10^3/uL (150-450); RED CELL DISTRIBUTION WIDTH 14.2 % (11.5-14.0); SEGMENTED NEUTROPHILS % (AUTO) 78.7 % (42-78); TOTAL CELLS COUNTED % (AUTO) 100 %; WHITE BLOOD COUNT 16.2 10^3/uL (4.0-10.5)
[2019-11-29 07:14] LABS: HEMOGLOBIN 13.3 g/dL (13.5-17.0)
[2019-11-29 07:21] LABS: ALBUMIN 3.4 g/dL (3.5-5.0); ALKALINE PHOSPHATASE 92 U/L (38-126); ANION GAP 8 (5-19); ASPARTATE AMINO TRANSFERASE 26 U/L (17-59); BILIRUBIN,TOTAL 0.9 mg/dL (0.2-1.3); BLOOD UREA NITROGEN 5 mg/dL (7-20); CALCIUM 8.9 mg/dL (8.4-10.2); CARBON DIOXIDE 23 mmol/L (22-30); CHLORIDE 104 mmol/L (98-107); GLUCOSE 157 mg/dL (75-110); POTASSIUM 3.3 mmol/L (3.6-5.0); TOTAL PROTEIN 6.7 g/dL (6.3-8.2)
[2019-11-29] MEDS ORDERED: POTASSIUM CHLORIDE 10 MEQ TABLET.ER PO ONE (09:05)
--- NOTE | 2019-11-29 10:38 | PDOC PROGRESS REPORT ---
Subjective Progress Note for:: 11/29/19 Subjective:: Patient complains of pain in his right forearm. States that he denotes use a needle at the site of the abscess. Denies any fever or chills. Admits to using heroine every day. Reason For Visit: RIGHT UPPER EXTREMITY ABSCESS, HEROIN ABUSE Physical Exam Vital Signs: Temp Pulse Resp BP Pulse Ox 98.1 F 90 17 116/78 100 11/29/19 08:07 11/29/19 08:07 11/29/19 08:07 11/29/19 08:07 11/29/19 08:07 Intake & Output 11/28/19 11/29/19 11/30/19 06:59 06:59 06:59 Intake Total 820 1250 Output Total 550 Balance 270 1250 Weight 68.5 kg General appearance: PRESENT: no acute distress, cooperative Neck exam: ABSENT: JVD Respiratory exam: PRESENT: clear to auscultation ellen, unlabored. ABSENT: tachypnea, wheezes Cardiovascular exam: PRESENT: RRR, +S1, +S2. ABSENT: tachycardia GI/Abdominal exam: PRESENT: soft. ABSENT: rebound, rigid, tenderness Extremities exam: PRESENT: other - Inflamed indurated erythematous area in his right forearm currently without any significant purulence Neurological exam: PRESENT: alert, awake Psychiatric exam: ABSENT: agitated, anxious Results Laboratory Results: 11/29/19 06:20 11/29/19 06:20 11/28/19 11/28/19 11/28/19 17:23 17:23 17:23 WBC 22.6 H RBC 5.32 Hgb 15.7 Hct 46.9 MCV 88 MCH 29.5 MCHC 33.5 RDW 14.3 H Plt Count 407 Seg Neutrophils % Not Reportable Sodium 139.6 Potassium 4.2 Chloride 97 L Carbon Dioxide 28 Anion Gap 15 BUN 11 Creatinine 0.66 Est GFR ( Amer) > 60 Glucose 89 Calcium 10.6 H Total Bilirubin 1.0 AST 40 Alkaline Phosphatase 136 H C-Reactive Protein 45.4 H Total Protein 9.6 H Albumin 5.2 H 11/29/19 11/29/19 06:20 06:20 WBC 16.2 H RBC 4.50 Hgb 13.3 L D Hct 38.9 MCV 86 MCH 29.6 MCHC 34.3 RDW 14.2 H Plt Count 285 Seg Neutrophils % 78.7 H Sodium 135.0 L Potassium 3.3 L Chloride 104 Carbon Dioxide 23 Anion Gap 8 BUN 5 L Creatinine 0.63 Est GFR ( Amer) > 60 Glucose 157 H Calcium 8.9 Total Bilirubin 0.9 AST 26 Alkaline Phosphatase 92 C-Reactive Protein Total Protein 6.7 Albumin 3.4 L Assessment and Plan - Diagnosis (1) Abscess of forearm, right Is this a current diagnosis for this admission?: Yes Plan: Status post bedside I&D in ED. Surgery following we will monitor arm. Continue vancomycin and Zosyn. Will de-escalate to vancomycin only tomorrow. Follow blood cultures Pain control as needed Wound dressing (2) Heroin abuse Is this a current diagnosis for this admission?: Yes Plan: History of chronic heroin abuse. Uses heroin every day. Will monitor for withdrawal. Check HIV-patient is agreeable. - Time Time Spent with patient: Less than 15 minutes
[2019-11-29] MEDS: MORPHINE SULFATE 10 MG/ML INJ IV PRN ×2 (11:44→17:24)
[2019-11-29] MEDS: VANCOMYCIN HCL 1,000 MG in DEXTROSE 5%-WATER 250 ML IV SCH ×2 (15:14→21:29)
[2019-11-29] MEDS: DIAZEPAM INJ 10 MG/2 ML DISP.SYRIN IV PRN ×2 (15:15→21:27)
[2019-11-29] MEDS: ONDANSETRON HCL INJ/PF 4 MG/2 ML SDV IV PRN (20:31)
[2019-11-29] MEDS: NICOTINE 21 MG/24 HR PATCH.TD24 TD SCH (21:27)
[2019-11-30] MEDS: PIPERACILLIN SODIUM/TAZOBACTAM 3.375 GM in NORMAL SALINE 100 ML IV SCH ×3 (01:33→12:04)
[2019-11-30] MEDS: MORPHINE SULFATE 10 MG/ML INJ IV PRN ×3 (01:46→11:41)
[2019-11-30] MEDS: DIAZEPAM INJ 10 MG/2 ML DISP.SYRIN IV PRN (03:56)
[2019-11-30] MEDS: HEPARIN SOD (PORCINE) 5,000 UNIT/ML 1 ML VIAL SUBCUT SCH ×2 (05:44→15:41)
[2019-11-30] MEDS: ONDANSETRON HCL INJ/PF 4 MG/2 ML SDV IV PRN (05:46)
[2019-11-30 07:30] LABS: ABSOLUTE BASOPHILS # (AUTO) 0.1 10^3/uL (0.0-0.2); ABSOLUTE EOSINOPHILS # (AUTO) 0.3 10^3/uL (0.0-0.6); ABSOLUTE LYMPHOCYTES (AUTO) 2.1 10^3/uL (0.5-4.7); ABSOLUTE MONOCYTES (AUTO) 1.3 10^3/uL (0.1-1.4); ABSOLUTE NEUT (AUTO) 12.6 10^3/uL (1.7-8.2); BASOPHILS % (AUTO) 0.5 % (0-2); EOSINOPHILS % (AUTO) 1.6 % (0-6); HEMOGLOBIN 13.4 g/dL (13.5-17.0); LYMPHOCYTES % (AUTO) 12.7 % (13-45); MEAN CORPUSCULAR HEMOGLOBIN 29.4 pg (27.0-33.4); MEAN CORPUSCULAR HGB CONC 33.6 g/dL (32.0-36.0); MEAN CORPUSCULAR VOLUME 87 fl (80-97); MONOCYTES % (AUTO) 7.9 % (3-13); PLATELET COUNT 325 10^3/uL (150-450); RED BLOOD COUNT 4.57 10^6/uL (4.35-5.55); RED CELL DISTRIBUTION WIDTH 14.2 % (11.5-14.0); SEGMENTED NEUTROPHILS % (AUTO) 77.3 % (42-78); TOTAL CELLS COUNTED % (AUTO) 100 %; WHITE BLOOD COUNT 16.3 10^3/uL (4.0-10.5)
[2019-11-30 08:10] LABS: VANCOMYCIN,TROUGH 10.4 ug/mL (5.0-20.0)
[2019-11-30] MEDS: VANCOMYCIN HCL 1,000 MG in DEXTROSE 5%-WATER 250 ML IV SCH (08:41)
--- NOTE | 2019-11-30 08:58 | PDOC PROGRESS REPORT ---
Subjective Progress Note for:: 11/30/19 Subjective:: Still having forearm pain. Reason For Visit: RIGHT UPPER EXTREMITY ABSCESS, HEROIN ABUSE Physical Exam Vital Signs: Temp Pulse Resp BP Pulse Ox 97.3 F 95 18 125/84 99 11/30/19 06:00 11/30/19 07:00 11/30/19 06:00 11/30/19 06:00 11/30/19 06:00 Intake & Output 11/29/19 11/30/19 12/01/19 06:59 06:59 06:59 Intake Total 820 5217 100 Output Total 550 1625 Balance 270 3592 100 Weight 68.5 kg 68.5 kg General appearance: PRESENT: no acute distress, cooperative Extremities exam: PRESENT: other - Forearm with wound with no active drainage. Diffuse erythema and induration in the surrounding region but no region of the fluctuance. Results Laboratory Results: 11/30/19 06:18 11/29/19 06:20 11/30/19 06:18 WBC 16.3 H RBC 4.57 Hgb 13.4 L Hct 40.0 MCV 87 MCH 29.4 MCHC 33.6 RDW 14.2 H Plt Count 325 Seg Neutrophils % 77.3 Assessment & Plan - Diagnosis (1) Cellulitis of forearm, right Is this a current diagnosis for this admission?: Yes Plan: Continue IV antibiotics. Observation. Status post incision and drainage by the ER.
[2019-11-30] MEDS: FAMOTIDINE 20 MG TABLET PO SCH (09:51)
[2019-11-30] MEDS: NICOTINE 21 MG/24 HR PATCH.TD24 TD SCH (09:51)
[2019-11-30] MEDS ORDERED: LORAZEPAM 1 MG TABLET PO PRN (11:41)
[2019-11-30] MEDS ORDERED: LOPERAMIDE HCL 2 MG CAPSULE PO PRN (11:42)
[2019-11-30] MEDS ORDERED: DIAZEPAM INJ 10 MG/2 ML DISP.SYRIN IV PRN (11:42)
--- NOTE | 2019-11-30 12:18 | PDOC PROGRESS REPORT ---
Subjective Progress Note for:: 11/30/19 Subjective:: Patient was feeling anxious this morning. Having some pain in the right arm with mild paresthesia in his right thumb. Also complains of diarrhea yesterday and today. Reason For Visit: RIGHT UPPER EXTREMITY ABSCESS, HEROIN ABUSE Physical Exam Vital Signs: Temp Pulse Resp BP Pulse Ox 97.3 F 95 18 125/84 99 11/30/19 06:00 11/30/19 07:00 11/30/19 06:00 11/30/19 06:00 11/30/19 06:00 Intake & Output 11/29/19 11/30/19 12/01/19 06:59 06:59 06:59 Intake Total 820 5217 100 Output Total 550 1625 Balance 270 3592 100 Weight 68.5 kg 68.5 kg General appearance: PRESENT: no acute distress, cooperative Neck exam: ABSENT: JVD Respiratory exam: PRESENT: clear to auscultation ellen, unlabored. ABSENT: tachypnea, wheezes Cardiovascular exam: PRESENT: RRR, +S1, +S2. ABSENT: tachycardia GI/Abdominal exam: PRESENT: soft. ABSENT: rebound, rigid, tenderness Extremities exam: PRESENT: other - Demarcated area of erythema in the right forearm with swelling. Incision site covered with dressing Neurological exam: PRESENT: alert, awake, oriented to person, oriented to place, oriented to time Results Laboratory Results: 11/30/19 06:18 11/29/19 06:20 11/30/19 06:18 WBC 16.3 H RBC 4.57 Hgb 13.4 L Hct 40.0 MCV 87 MCH 29.4 MCHC 33.6 RDW 14.2 H Plt Count 325 Seg Neutrophils % 77.3 Assessment and Plan - Diagnosis (1) Abscess of forearm, right Is this a current diagnosis for this admission?: Yes Plan: Status post bedside I&D in ED on admission. Surgery following. Continue vancomycin and Zosyn. Leukocytosis persisting at 16. Blood cultures negative at 24 hours Pain control as needed Wound dressing (2) Heroin abuse Is this a current diagnosis for this admission?: Yes Plan: History of chronic heroin abuse. Uses heroin every day. HIV test is negative. May be starting to show some mild withdrawal symptoms with anxiety and diarrhea. Ativan and loperamide as needed. Wean Valium. If worsens, will add clonidine. - Time Time Spent with patient: Less than 15 minutes
[2019-11-30 12:28] VITALS: BP 128/86
[2019-11-30] MEDS ORDERED: VANCOMYCIN HCL 1,250 MG in DEXTROSE 5%-WATER 250 ML IV SCH (14:00)
--- NOTE | 2019-11-30 18:26 | Left Against Medical Advice ---
Against Medical Advice Admission Date/Time: 11/28/19 18:14 Primary Care Provider: Date of Patient Emigration: 11/30/19 - Diagnosis: (1) Abscess of forearm, right Is this a current diagnosis for this admission?: Yes (2) Heroin abuse Is this a current diagnosis for this admission?: Yes - Summary: Summary: Please see Admission and Progress Notes as well. CHINTAN DODGE is a 34 M, who LEFT AGAINST MEDICAL ADVICE. The Patient was admitted on 11/28/19 18:14. Patient left AGAINST MEDICAL ADVICE despite my attempts the patient was waiting to see if he will need any further surgical intervention as the surgicalist wanted to monitor patient arm. I explained the risks of leaving the hospital prematurely to patient and patient insisted. I have given patient a prescription for Bactrim to be taken for 10 days since patient has decided to leave AGAINST MEDICAL ADVICE.
--- NOTE | 2019-12-01 18:35 | Progress Note ---
Provider Note Provider Note: Informed by microbiology lab the patient is growing bacillus species a in the aerobic bottle of blood blood culture sets after patient had left AMA. This is likely indicating of a true bacteremia especially given patient's history of IV drug use. I have called patient and notified him. He will likely need linezo lid antibiotics. Patient states he will come back to the hospital tonight.
== END 2019-11-30 17:16 | disposition left against medical advice (07) | DRG 603 ==
LOC: ER 16:59 → EH 18:14 → 4S 19:09
PROVIDERS: ADMIT Internal Medicine; ATTEND Internal Medicine
PROC: 0X9D3ZZ Drainage of Right Lower Arm, Percutaneous Approach (ICD-10-PCS; principal; 2019-11-28)
DX: L02.413 Cutaneous abscess of right upper limb (principal); R78.81 Bacteremia; L03.113 Cellulitis of right upper limb; F11.10 Opioid abuse, uncomplicated; F12.10 Cannabis abuse, uncomplicated; F17.210 Nicotine dependence, cigarettes, uncomplicated; F31.9 Bipolar disorder, unspecified; B96.89 Other specified bacterial agents as the cause of diseases classified elsewhere; R19.7 Diarrhea, unspecified; F41.9 Anxiety disorder, unspecified; M19.90 Unspecified osteoarthritis, unspecified site; Z79.1 Long term (current) use of non-steroidal anti-inflammatories (NSAID); Z79.899 Other long term (current) drug therapy; Z59.0 Homelessness
CPT/HCPCS: 36415; 80053; 80202; 80307; 85025; 85652; 86140; 86701; 87040; 87077; 87150; 96374; 99284; J1644; J2270; J2405; J2543; J3360; J3370; J3490; J7030; J7042; J7050; J7060

== ENCOUNTER 2019-12-02 12:33 | Observation (INO) | payer OTHER ==
--- NOTE | 2019-12-02 13:00 | ER Document Report ---
ED Medical Screen (RME) - General Chief Complaint: Abscess Stated Complaint: POSSIBLE ABSCESS ON RIGHT ARM Notes: Patient is a 34-year-old male with a history of IV drug abuse who was seen here recently diagnosed with a cellulitis and abscess of the right forearm who was admitted to the hospital for management. He was started on Vanco and Zosyn in the emergency department. He left the hospital AMA approximately 2 days ago. He was called stating that the culture results were positive and asked to come back to the emergency department. The patient does admit that the area seems to be worsening. I have treated and performed a rapid initial assessment of this patient. A comprehensive ED assessment and evaluation of the patient, analysis of test results and completion of medical decision making process will be conducted by additional ED providers. PHYSICAL EXAMINATION: GENERAL: A&Ox4. Answers questions appropriately. TRAVEL OUTSIDE OF THE [place] IN LAST 30 DAYS: No - Related Data Allergies/Adverse Reactions: No Known Allergies Allergy (Verified 10/04/19 14:56) Past Medical History Pulmonary Medical History: Reports: Hx Asthma Renal/ Medical History: Denies: Hx Peritoneal Dialysis Musculoskeltal Medical History: Reports Hx Arthritis, Reports Hx Musculoskeletal Deformity, Reports Hx Musculoskeletal Trauma Psychiatric Medical History: Reports: Hx Anxiety, Hx Bipolar Disorder, Hx Depression Past Surgical History: Reports: Hx Orthopedic Surgery - L4 L5 FUSION 2010, hardware removed from the spine due to infection - Immunizations Immunizations up to date: Yes Hx Diphtheria, Pertussis, Tetanus Vaccination: Yes - unknown Physical Exam - Vital signs Vitals: Temp Pulse Resp BP Pulse Ox 97.9 F 98 16 121/80 100 12/02/19 12:36 12/02/19 12:36 12/02/19 12:36 12/02/19 12:36 12/02/19 12:36 Course - Vital Signs Vital signs: Temp Pulse Resp BP Pulse Ox 97.9 F 98 16 121/80 100 12/02/19 12:36 12/02/19 12:36 12/02/19 12:36 12/02/19 12:36 12/02/19 12:36
[2019-12-02] MEDS ORDERED: ACETAMINOPHEN 325 MG TABLET PO PRN (14:09)
[2019-12-02] MEDS ORDERED: ONDANSETRON HCL INJ/PF 4 MG/2 ML SDV IV PRN (14:09)
--- NOTE | 2019-12-02 14:09 | ER Document Report ---
Entered by BHAVYA VARMA SCRIBE 12/02/19 1314 Acting as scribe for:VERNELL RUFFIN MD ED Skin Rash/Insect Bite/Abscs - General Chief Complaint: Abscess Stated Complaint: POSSIBLE ABSCESS ON RIGHT ARM Time Seen by Provider: 12/02/19 13:00 Information source: Patient Notes: This 34 year old male patient with an extensive history of IV drug abuse presents to the emergency department today after being called from this facility in regards to gram positive blood cultures. Patient was seen and admitted here on 11/27 for a right forearm abscess but he signed out against medical advice on 11/29. Patient states he has had more yellow discharge from this wound since discharge. Patient states the surrounding erythema has remained unchanged. TRAVEL OUTSIDE OF THE [place] IN LAST 30 DAYS: No - Related Data Allergies/Adverse Reactions: No Known Allergies Allergy (Verified 10/04/19 14:56) Past Medical History - General Information source: Patient - Social History Smoking Status: Current Every Day Smoker Cigarette use (# per day): Yes Drug Abuse: Other Family History: Arthritis, Hyperlipidemia, Hypertension Patient has suicidal ideation: No Patient has homicidal ideation: No Pulmonary Medical History: Reports: Hx Asthma Musculoskeletal Medical History: Reports Hx Arthritis, Reports Hx Musculoskeletal Deformity, Reports Hx Musculoskeletal Trauma Psychiatric Medical History: Reports: Hx Anxiety, Hx Bipolar Disorder, Hx Depression Past Surgical History: Reports: Hx Orthopedic Surgery - L4 L5 FUSION 2010, hardware removed from the spine due to infection - Immunizations Immunizations up to date: Yes Hx Diphtheria, Pertussis, Tetanus Vaccination: Yes - unknown Review of Systems - Review of Systems Constitutional: No symptoms reported EENT: No symptoms reported Cardiovascular: No symptoms reported Respiratory: No symptoms reported Gastrointestinal: No symptoms reported Genitourinary: No symptoms reported Male Genitourinary: No symptoms reported Musculoskeletal: No symptoms reported Skin: See HPI, Lesions - right forearm Hematologic/Lymphatic: No symptoms reported Neurological/Psychological: No symptoms reported -: Yes All other systems reviewed and negative Physical Exam - Vital signs Vitals: Temp Pulse Resp BP Pulse Ox 97.9 F 98 16 121/80 100 12/02/19 12:36 12/02/19 12:36 12/02/19 12:36 12/02/19 12:36 12/02/19 12:36 - Notes Notes: Physical Exam: General: Alert, appears well. HEENT: Normocephalic. Atraumatic. PERRL. Extraocular movements intact. Oropharynx clear. Neck: Supple. Non-tender. Respiratory: No respiratory distress. Clear and equal breath sounds bilaterally. Cardiovascular: Regular rate and rhythm. Abdominal: Normal Inspection. Non-tender. No distension. Normal Bowel Sounds. Back: No gross abnormalities. Extremities: Moves all four extremities. Upper extremities: Normal inspection. Normal ROM. Lower extremities: Normal inspection. No edema. Normal ROM. Neurological: Normal cognition. AAOx4. Normal speech. Psychological: Normal affect. Normal Mood. Skin: There is an open wound to the right forearm with epithelialized surrounding tissue. It is draining serous fluid. The area is indurated, erythematous, and tender with palpation. There is no fluctuance. Patient also has various areas across his body consistent with healed pick blanco consistent with drug abuse history. Course - Vital Signs Vital signs: Temp Pulse Resp BP Pulse Ox 97.9 F 98 16 121/80 100 12/02/19 12:36 12/02/19 12:36 12/02/19 12:36 12/02/19 12:36 12/02/19 12:36 - Consults Dr. Cope Time consulted: 13:15 Consulted provider: will come to ER Discharge - Discharge Clinical Impression: Cellulitis of forearm, right, Abscess of forearm, right, Heroin abuse, IV drug abuse Condition: Stable Disposition: ADMITTED INPATIENT Admitting Provider: Prisca (Hospitalist) Unit Admitted: Medical Floor I personally performed the services described in the documentation, reviewed and edited the documentation which was dictated to the scribe in my presence, and it accurately records my words and actions.
[2019-12-02 14:29] LABS: ABSOLUTE BASOPHILS # (AUTO) 0.1 10^3/uL (0.0-0.2); ABSOLUTE EOSINOPHILS # (AUTO) 0.5 10^3/uL (0.0-0.6); ABSOLUTE LYMPHOCYTES (AUTO) 2.1 10^3/uL (0.5-4.7); ABSOLUTE MONOCYTES (AUTO) 0.8 10^3/uL (0.1-1.4); BASOPHILS % (AUTO) 0.7 % (0-2); EOSINOPHILS % (AUTO) 4.4 % (0-6); HEMATOCRIT 41.1 % (37.9-51.0); HEMOGLOBIN 14.1 g/dL (13.5-17.0); LYMPHOCYTES % (AUTO) 20.6 % (13-45); MEAN CORPUSCULAR HEMOGLOBIN 30.2 pg (27.0-33.4); MEAN CORPUSCULAR HGB CONC 34.4 g/dL (32.0-36.0); MEAN CORPUSCULAR VOLUME 88 fl (80-97); MONOCYTES % (AUTO) 7.3 % (3-13); PLATELET COUNT 372 10^3/uL (150-450); RED BLOOD COUNT 4.68 10^6/uL (4.35-5.55); RED CELL DISTRIBUTION WIDTH 14.6 % (11.5-14.0); TOTAL CELLS COUNTED % (AUTO) 100 %; WHITE BLOOD COUNT 10.4 10^3/uL (4.0-10.5)
[2019-12-02] MEDS ORDERED: VANCOMYCIN HCL INJ 1000 MG VIAL IV SCH (14:45)
[2019-12-02 14:51] LABS: ALBUMIN 4.2 g/dL (3.5-5.0); ALKALINE PHOSPHATASE 90 U/L (38-126); ASPARTATE AMINO TRANSFERASE 26 U/L (17-59); BILIRUBIN,DIRECT 0.3 mg/dL (0.0-0.4); BILIRUBIN,TOTAL 0.3 mg/dL (0.2-1.3); BLOOD UREA NITROGEN 13 mg/dL (7-20); CALCIUM 9.8 mg/dL (8.4-10.2); CARBON DIOXIDE 25 mmol/L (22-30); GLUCOSE 73 mg/dL (75-110); POTASSIUM 4.3 mmol/L (3.6-5.0); TOTAL PROTEIN 8.1 g/dL (6.3-8.2)
[2019-12-02 14:55] LABS: ANION GAP 10 (5-19); CHLORIDE 107 mmol/L (98-107)
[2019-12-02] MEDS ORDERED: NORMAL SALINE 1000 ML 1,000 ML IV ONE (14:57)
--- NOTE | 2019-12-02 15:04 | PDOC H&P ---
History of Present Illness Admission Date/PCP: 12/02/19 14:14 Patient complains of: right forearm pain. History of Present Illness: CHINTAN DODGE is a 34 year old male with a history of IV drug abuse, who presents to the hospital for follow-up for evaluation of bacillus bacteremia and his recent right forearm abscess. Notably, patient was admitted on 11/28/2019 for evaluation of right forearm abscess and received I&D in the emergency department. He was started on antibiotics at the time but ended up leaving AMA before his blood cultures could be fully resulted. His blood culture subsequently grew Bacillus spp and I called the patient yesterday to inform him that he will need to come back to the hospital. Patient still complains of pain in his right forearm. Admits to doing heroin yesterday IV. Denies any fever or chills. His lightheadedness. Past Medical History Pulmonary Medical History: Reports: Asthma Musculoskeltal Medical History: Reports: Arthritis Psychiatric Medical History: Reports: Bipolar Disorder, Depression Past Surgical History Past Surgical History: Reports: Orthopedic Surgery - L4 L5 FUSION 2010, hardware removed from the spine due to infection Social History Smoking Status: Current Every Day Smoker Drugs: Cocaine, Heroin, Marijuana - Advance Directive Resuscitation Status: Full Code Family History Family History: Arthritis, Hyperlipidemia, Hypertension Parental Family History Reviewed: Yes Children Family History Reviewed: NA Sibling(s) Family History Reviewed.: NA Medication/Allergy Home Medications: Albuterol Sulfate [Proair HFA Inhalation Aerosol 8.5 gm MDI] 2 puff IH ASDIR PRN 12/02/19 Allergies/Adverse Reactions: No Known Allergies Allergy (Verified 10/04/19 14:56) Review of Systems Constitutional: ABSENT: chills, fatigue, fever(s) Eyes: ABSENT: visual disturbances Nose, Mouth, and Throat: ABSENT: headache(s) Cardiovascular: ABSENT: chest pain Respiratory: ABSENT: dyspnea Gastrointestinal: ABSENT: abdominal pain Musculoskeletal: ABSENT: back pain Integumentary: ABSENT: diaphoresis Neurological: ABSENT: confusion Hematologic/Lymphatic: ABSENT: easy bleeding Physical Exam Vital Signs: Temp Pulse Resp BP Pulse Ox 97.9 F 98 16 121/80 100 12/02/19 12:36 12/02/19 12:36 12/02/19 12:36 12/02/19 12:36 12/02/19 12:36 Intake & Output 12/01/19 12/02/19 12/03/19 06:59 06:59 06:59 Weight 67.4 kg General appearance: PRESENT: no acute distress, cooperative, thin Eye exam: ABSENT: periorbital swelling Mouth exam: PRESENT: neck supple Neck exam: ABSENT: JVD Respiratory exam: PRESENT: clear to auscultation ellen, unlabored. ABSENT: wheezes Cardiovascular exam: PRESENT: +S1, +S2. ABSENT: diastolic murmur, systolic murmur GI/Abdominal exam: PRESENT: soft. ABSENT: rebound, rigid, tenderness Extremities exam: PRESENT: other - Right incision site looks to be healing adequately with serosanguineous fluid drainage and no purulence. Mild induration but no remarkable fluctuance. Musculoskeletal exam: PRESENT: ambulatory Neurological exam: PRESENT: alert, awake Psychiatric exam: ABSENT: anxious Focused psych exam: ABSENT: pressured speech Results Laboratory Results: 12/02/19 14:10 12/02/19 14:10 WBC 10.4 RBC 4.68 Hgb 14.1 Hct 41.1 MCV 88 MCH 30.2 MCHC 34.4 RDW 14.6 H Plt Count 372 Seg Neutrophils % 67.0 Assessment and Plan - Diagnosis (1) Gram-positive bacteremia Is this a current diagnosis for this admission?: Yes Plan: Blood culture on last visit growing bacillus spp (not anthracus). Though this is often a skin contaminant, the fact that it is positive in both blood culture sets in the aerobic bottle makes it very likely that is a true bacteremia given his IV drug use and his recent skin abscess. Uncommonly associated with endocarditis and in absence of any sepsis and heart murmur, I will hold off on getting echo as of now. Repeat blood cultures given patient has been off antibiotics for few days. Will start on vancomycin-will ultimately need 14 days of antibiotics [vancomycin versus linezolid] (2) Abscess of forearm, right Is this a current diagnosis for this admission?: Yes Plan: Site of I&D seems to be improved. I will ask surgery to reevaluate does not likely need any further intervention. Continue antibiotics. Wound care. Pain control. (3) IV drug abuse Is this a current diagnosis for this admission?: Yes Plan: Abuses IV heroin. Last use yesterday night. Monitor for withdrawals. Ativan as needed. - Time Time Spent with patient: 15-24 minutes
[2019-12-02] MEDS ORDERED: VANCOMYCIN HCL 0 MG in DEXTROSE 5%-WATER 250 ML IV NR (15:30)
[2019-12-02] MEDS: ENOXAPARIN SODIUM INJ 40 MG/0.4 ML DISP.SYRIN SUBCUT SCH (15:52)
[2019-12-02] MEDS: TRAMADOL HCL 50 MG TABLET PO PRN (17:23)
[2019-12-02] MEDS: KETOROLAC TROMETHAMINE INJ/PF 30 MG/1 ML SDV IV PRN ×2 (17:23→23:41)
[2019-12-02] MEDS: VANCOMYCIN HCL 1,250 MG in DEXTROSE 5%-WATER 250 ML IV SCH (17:55)
[2019-12-02] MEDS: LORAZEPAM INJ 2 MG/1 ML VIAL IV PRN (18:41)
--- NOTE | 2019-12-02 20:25 | PDOC CONSULTATION ---
Consultation Consult Date: 12/02/19 Provider Consulted: BRENDA ALLEN Consult reason:: Evaluate right forearm History of Present Illness Admission Date/PCP: 12/02/19 14:14 History of Present Illness: CHINTAN DODGE is a 34 year old male presented with right forearm infection several days ago and was treated with antibiotics as well as a incision and drainage procedure in the ER. Patient left AGAINST MEDICAL ADVICE but was called back in due to a positive blood culture. Patient is a heroin abuser. He has had history of abscess in the remote past. Patient does not complain of fever. Still complains of pain at his right forearm. Past Medical History Pulmonary Medical History: Reports: Asthma Musculoskeltal Medical History: Reports: Arthritis Psychiatric Medical History: Reports: Bipolar Disorder, Depression Past Surgical History Past Surgical History: Reports: Orthopedic Surgery - L4 L5 FUSION 2010, hardware removed from the spine due to infection Social History Smoking Status: Current Every Day Smoker Drugs: Cocaine, Heroin, Marijuana - Advance Directive Resuscitation Status: Full Code Family History Family History: Arthritis, Hyperlipidemia, Hypertension Parental Family History Reviewed: No Children Family History Reviewed: No Sibling(s) Family History Reviewed.: No Medication/Allergy Home Medications: Albuterol Sulfate [Proair HFA Inhalation Aerosol 8.5 gm MDI] 2 puff IH ASDIR PRN 12/02/19 Allergies/Adverse Reactions: No Known Allergies Allergy (Verified 10/04/19 14:56) Physical Exam Vital Signs: Temp Pulse Resp BP Pulse Ox 97.7 F 72 16 107/63 100 12/02/19 19:38 12/02/19 19:38 12/02/19 19:38 12/02/19 19:38 12/02/19 19:38 Intake & Output 12/01/19 12/02/19 12/03/19 06:59 06:59 06:59 Intake Total 1200 Output Total 0 Balance 1200 Weight 67.4 kg General appearance: PRESENT: no acute distress, cooperative Eye exam: PRESENT: conjunctiva pink Respiratory exam: PRESENT: clear to auscultation ellen Cardiovascular exam: PRESENT: RRR Extremities exam: PRESENT: other - No splinter hemorrhages. Right forearm with open wound from prior I&D procedure that appears clean with no purulent drainage. There is mild erythema at the volar aspect of his forearm that is markedly improved from my last evaluation several days ago prior to him leaving AMA. There is small region of induration but no fluctuance and again this entire area is markedly improved. Results Laboratory Results: 12/02/19 14:10 12/02/19 14:10 12/02/19 12/02/19 12/02/19 14:10 14:10 14:10 WBC 10.4 RBC 4.68 Hgb 14.1 Hct 41.1 MCV 88 MCH 30.2 MCHC 34.4 RDW 14.6 H Plt Count 372 Seg Neutrophils % 67.0 Sodium 141.9 Potassium 4.3 Chloride 107 Carbon Dioxide 25 Anion Gap 10 BUN 13 Creatinine 0.81 Est GFR ( Amer) > 60 Glucose 73 L Lactic Acid 2.1 Calcium 9.8 Total Bilirubin 0.3 AST 26 Alkaline Phosphatase 90 Total Protein 8.1 Albumin 4.2 Assessment & Plan - Diagnosis (1) Cellulitis of forearm, right Is this a current diagnosis for this admission?: Yes Plan: I do not see any indication for any further surgical intervention. In regards to the open wound which appears to be closing well, recommend just a clean gauze dressing once a day and washing it with soap and water once a day at home. With antibiotic therapy the forearm infection should resolve. Defer to hospitalist for management of his positive blood culture. Surgery service signing off. Please call us for any problems or concerns.
[2019-12-03] MEDS: VANCOMYCIN HCL 1,250 MG in DEXTROSE 5%-WATER 250 ML IV SCH ×2 (01:16→09:32)
[2019-12-03] MEDS: TRAMADOL HCL 50 MG TABLET PO PRN (02:50)
[2019-12-03] MEDS: LORAZEPAM INJ 2 MG/1 ML VIAL IV PRN (02:50)
[2019-12-03 05:55] LABS: ANION GAP 8 (5-19); BLOOD UREA NITROGEN 17 mg/dL (7-20); CARBON DIOXIDE 24 mmol/L (22-30); CHLORIDE 107 mmol/L (98-107); GLUCOSE 98 mg/dL (75-110)
[2019-12-03 08:46] VITALS: BP 133/85
[2019-12-03] MEDS: ENOXAPARIN SODIUM INJ 40 MG/0.4 ML DISP.SYRIN SUBCUT SCH (09:32)
[2019-12-03] MEDS ORDERED: MORPHINE SULFATE 10 MG/ML INJ IV PRN (10:21)
--- NOTE | 2019-12-03 11:10 | PDOC PROGRESS REPORT ---
Subjective Progress Note for:: 12/03/19 Subjective:: Patient requesting medication to help with withdrawal otherwise to threatening to leave AMA. Patient does not look like he is in jessica withdrawal at this time his vital signs are within normal limits but I have offered patient Ativan and some morphine for pain. Will give clonidine if significant withdrawal. Patient was agreeable but now patient is now going AMA once again after our encounter. Reason For Visit: BACILLUS BACTEREMIA, ABSCESS Physical Exam Vital Signs: Temp Pulse Resp BP Pulse Ox 97.9 F 70 16 133/85 H 100 12/03/19 08:00 12/03/19 08:00 12/03/19 08:00 12/03/19 08:00 12/03/19 08:00 Intake & Output 12/02/19 12/03/19 12/04/19 06:59 06:59 06:59 Intake Total 2800 Output Total 0 Balance 2800 Weight 66.6 kg General appearance: PRESENT: no acute distress, cooperative Neck exam: ABSENT: JVD Respiratory exam: PRESENT: clear to auscultation ellen, unlabored. ABSENT: tachypnea, wheezes Cardiovascular exam: PRESENT: RRR, +S1, +S2. ABSENT: tachycardia GI/Abdominal exam: PRESENT: soft. ABSENT: rebound, rigid, tenderness Neurological exam: PRESENT: alert, awake, oriented to person, oriented to place, oriented to time Psychiatric exam: ABSENT: agitated, anxious Results Laboratory Results: 12/02/19 14:10 12/03/19 05:16 12/02/19 12/02/19 12/02/19 14:10 14:10 14:10 WBC 10.4 RBC 4.68 Hgb 14.1 Hct 41.1 MCV 88 MCH 30.2 MCHC 34.4 RDW 14.6 H Plt Count 372 Seg Neutrophils % 67.0 Sodium 141.9 Potassium 4.3 Chloride 107 Carbon Dioxide 25 Anion Gap 10 BUN 13 Creatinine 0.81 Est GFR ( Amer) > 60 Glucose 73 L Lactic Acid 2.1 Calcium 9.8 Total Bilirubin 0.3 AST 26 Alkaline Phosphatase 90 Total Protein 8.1 Albumin 4.2 12/03/19 05:16 WBC RBC Hgb Hct MCV MCH MCHC RDW Plt Count Seg Neutrophils % Sodium 138.7 Potassium 4.0 Chloride 107 Carbon Dioxide 24 Anion Gap 8 BUN 17 Creatinine 0.81 Est GFR ( Amer) > 60 Glucose 98 Lactic Acid Calcium 9.0 Total Bilirubin AST Alkaline Phosphatase Total Protein Albumin Assessment and Plan - Diagnosis (1) Gram-positive bacteremia Is this a current diagnosis for this admission?: Yes Plan: Blood culture on last visit growing bacillus spp (not anthracus). Repeat blood cultures obtained. Vancomycin. Patient is once again leaving AMA right now despite me explaining the risks to him and despite my attempts to help him out with his complaints. At this point, I will send prescription for linezolid for patient to take for 14 days and hopefully he will take it this time. (2) Abscess of forearm, right Is this a current diagnosis for this admission?: Yes Plan: Site of I&D seems to be improved. Evaluated by surgery recommending wound dressing and no further intervention. (3) IV drug abuse Is this a current diagnosis for this admission?: Yes Plan: Abuses IV heroin. No evidence of jessica withdrawal. Patient is leaving AMA at this time. - Time Time Spent with patient: Less than 15 minutes
--- NOTE | 2019-12-03 11:11 | Left Against Medical Advice ---
Against Medical Advice Admission Date/Time: 12/02/19 14:14 Primary Care Provider: Date of Patient Emigration: 12/03/19 - Diagnosis: (1) Gram-positive bacteremia Is this a current diagnosis for this admission?: Yes (2) Abscess of forearm, right Is this a current diagnosis for this admission?: Yes (3) IV drug abuse Is this a current diagnosis for this admission?: Yes - Summary: Summary: Please see Admission and Progress Notes as well. CHINTAN DODGE is a 34 M, who LEFT AGAINST MEDICAL ADVICE. The Patient was admitted on 12/02/19 14:14.
== END 2019-12-03 11:00 | disposition left against medical advice (07) ==
LOC: ER 12:33 → EH 14:14 → INTOOBSV 14:14 → 4W 16:20
PROVIDERS: ADMIT Internal Medicine; ATTEND Internal Medicine
DX: A49.9 Bacterial infection, unspecified (principal); L02.413 Cutaneous abscess of right upper limb; F11.10 Opioid abuse, uncomplicated; M19.90 Unspecified osteoarthritis, unspecified site; J45.909 Unspecified asthma, uncomplicated; F17.210 Nicotine dependence, cigarettes, uncomplicated; Z79.899 Other long term (current) drug therapy; Z98.890 Other specified postprocedural states
CPT/HCPCS: 99284; 36415 ×2; 87040; 83605; 85025; 80048; 80053; J1885; J2060 ×2; J2405; J7060 ×2; J7030; J3370 ×2; G0378

== ENCOUNTER 2020-03-30 17:09 | Emergency (ER) | payer OTHER ==
--- NOTE | 2020-03-30 17:35 | ER Document Report ---
ED Medical Screen (RME) - General Chief Complaint: Back Pain Stated Complaint: BACK PAIN Time Seen by Provider: 03/30/20 17:17 Mode of Arrival: Wheelchair Notes: Patient is a 34-year-old male comes emergency room complaining of sustaining a slip and fall 2 days ago while walking in a river and landing on his right hip and low back. Patient admits to being a heroin addict and uses IV heroin at least twice a day. Last use was yesterday at 2:30 PM. Patient states that he has a long history of lumbar problems he had to lumbar fusions in 2010 and 1 of the fusions he became infected and had a spinal abscess patient states that he spent several months in a hospital in [place]. And he states this pain and discomfort he is feeling now feels similar. He knows that he is an IV drug user and that is a possibility of getting an infection that way. Patient rates his pain as a 4 out of 5. Current vital signs show blood pressure 133/75, saturation on room air is 100% temperature is 98.7 orally and heart rate is 81 bpm. Patient is a slightly cachectic appearing 34-year-old male appears very weak in his wheelchair. Upper extremities show multiple lesions across them. He is not tachycardic at this time and has no temp. His blood pressure is stable. Cardiac: Regular rate and rhythm with no murmurs at this time. Lungs: Bilateral breath sounds of breath sounds decreased throughout no rhonchi rales or wheezing heard at this time. Abdomen: Patient bowel sounds present all 4 quads nontender to palpate. Back. Patient is a very large healed surgical lumbar incision moderate tenderness to palpation across all areas. Unable to do straight leg raises secondary to patient being in wheelchair. He has good sensation on the inner ankles to the groin as the outer ankles to the thighs and hips. There appears to be no saddle paresthesia. Difficult to do DTRs at this time with him in a wheelchair. Patient does as we stated appear weak I have greeted and performed a rapid initial assessment of this patient. A comprehensive ED assessment and evaluation of the patient, analysis of test results and completion of the medical decision making process will be conducted by additional ED providers. Dictation of this chart was performed using voice recognition software; therefore, there may be some unintended grammatical errors. TRAVEL OUTSIDE OF THE [place] IN LAST 30 DAYS: No - Related Data Allergies/Adverse Reactions: No Known Allergies Allergy (Verified 03/30/20 17:15) Home Medications: albuterol Past Medical History - Social History Chew tobacco use (# tins/day): No Frequency of alcohol use: None Drug Abuse: Heroin Pulmonary Medical History: Reports: Hx Asthma Renal/ Medical History: Denies: Hx Peritoneal Dialysis Musculoskeltal Medical History: Reports Hx Arthritis, Reports Hx Musculoskeletal Deformity, Reports Hx Musculoskeletal Trauma Psychiatric Medical History: Reports: Hx Anxiety, Hx Bipolar Disorder, Hx Depression Past Surgical History: Reports: Hx Orthopedic Surgery - L4 L5 FUSION 2010, hardware removed from the spine due to infection - Immunizations Immunizations up to date: Yes Hx Diphtheria, Pertussis, Tetanus Vaccination: Yes - unknown Physical Exam - Vital signs Vitals: Temp Pulse Resp BP Pulse Ox 98.3 F 81 18 133/75 H 100 03/30/20 17:14 03/30/20 17:14 03/30/20 17:14 03/30/20 17:14 03/30/20 17:14 Course - Vital Signs Vital signs: Temp Pulse Resp BP Pulse Ox 98.3 F 81 18 133/75 H 100 03/30/20 17:16 03/30/20 17:14 03/30/20 17:14 03/30/20 17:14 03/30/20 17:14
[2020-03-30 18:14] LABS: ABSOLUTE BASOPHILS # (AUTO) 0.1 10^3/uL (0.0-0.2); ABSOLUTE EOSINOPHILS # (AUTO) 0.2 10^3/uL (0.0-0.6); ABSOLUTE LYMPHOCYTES (AUTO) 1.9 10^3/uL (0.5-4.7); ABSOLUTE MONOCYTES (AUTO) 0.7 10^3/uL (0.1-1.4); ABSOLUTE NEUT (AUTO) 6.6 10^3/uL (1.7-8.2); BASOPHILS % (AUTO) 0.7 % (0-2); EOSINOPHILS % (AUTO) 2.2 % (0-6); HEMATOCRIT 40.6 % (37.9-51.0); HEMOGLOBIN 13.8 g/dL (13.5-17.0); LYMPHOCYTES % (AUTO) 19.9 % (13-45); MEAN CORPUSCULAR HGB CONC 33.9 g/dL (32.0-36.0); MEAN CORPUSCULAR VOLUME 89 fl (80-97); MONOCYTES % (AUTO) 7.4 % (3-13); PLATELET COUNT 302 10^3/uL (150-450); RED BLOOD COUNT 4.58 10^6/uL (4.35-5.55); RED CELL DISTRIBUTION WIDTH 14.6 % (11.5-14.0); SEGMENTED NEUTROPHILS % (AUTO) 69.8 % (42-78); TOTAL CELLS COUNTED % (AUTO) 100 %; WHITE BLOOD COUNT 9.5 10^3/uL (4.0-10.5)
[2020-03-30 18:33] LABS: ALBUMIN 4.5 g/dL (3.5-5.0); ALKALINE PHOSPHATASE 105 U/L (38-126); ANION GAP 8 (5-19); ASPARTATE AMINO TRANSFERASE 31 U/L (17-59); BILIRUBIN,TOTAL 0.3 mg/dL (0.2-1.3); BLOOD UREA NITROGEN 16 mg/dL (7-20); CALCIUM 10.7 mg/dL (8.4-10.2); CARBON DIOXIDE 32 mmol/L (22-30); CHLORIDE 98 mmol/L (98-107); GLUCOSE 115 mg/dL (75-110); POTASSIUM 4.8 mmol/L (3.6-5.0); TOTAL PROTEIN 8.5 g/dL (6.3-8.2)
[2020-03-30 18:50] LABS: URINE AMPHETAMINES SCREEN NEGATIVE; URINE BARBITURATES SCREEN NEGATIVE; URINE BENZODIAZEPINES SCREEN NEGATIVE; URINE MARIJUANA (THC) SCREEN NEGATIVE; URINE METHADONE SCREEN NEGATIVE; URINE PHENCYCLIDINE SCREEN NEGATIVE
[2020-03-30 18:51] LABS: URINE COCAINE SCREEN UNCONFIRMED POSITIVE
[2020-03-30 19:15] LABS: AMORPHOUS SEDIMENT,URINE TRACE /HPF; APPEARANCE,URINE CLOUDY; BILIRUBIN,URINE NEGATIVE (NEGATIVE); CALCIUM OXALATE CRYSTALS,URINE TOO NUMEROUS TO CNT /HPF; COLOR,URINE AMBER; GLUCOSE, URINE NEGATIVE (NEGATIVE); KETONES,URINE TRACE mg/dL (NEGATIVE); LEUKOCYTE ESTERASE,URINE TRACE (NEGATIVE); NITRITE,URINE NEGATIVE (NEGATIVE); PROTEIN,URINE 30 mg/dL (NEGATIVE); URINE SPECIFIC GRAVITY 1.032
[2020-03-31] MEDS ORDERED: KETOROLAC TROMETHAMINE INJ/PF 30 MG/1 ML SDV IV ONE (03:14)
--- NOTE | 2020-03-31 03:20 | ER Document Report ---
ED General - General Chief Complaint: Back Pain Stated Complaint: BACK PAIN Time Seen by Provider: 03/30/20 17:17 Mode of Arrival: Wheelchair Notes: Patient is a 34-year-old male that comes to the emergency department for chief complaint of pain in his lower back. He states that almost 3 days ago now he was walking [place] a river and he slipped, fell into a ditch, landed on his lower back. He states the next day started having pain, pain radiates from the right hip all the way to the left side of the lower back. He denies developing numbness, incontinence, fever. He does admit to IV drug abuse, he also had lumbar fusion in 2010 and later had epidural abscess and had the hardware removed from this. Patient states he supposed be on Lyrica but cannot afford it, he states he is not on any other medications. He denies any other injuries or any other complaints. TRAVEL OUTSIDE OF THE [place] IN LAST 30 DAYS: No - Related Data Allergies/Adverse Reactions: No Known Allergies Allergy (Verified 03/30/20 17:15) Home Medications: albuterol Past Medical History - General Information source: Patient - Social History Smoking Status: Current Every Day Smoker Chew tobacco use (# tins/day): No Frequency of alcohol use: None Drug Abuse: Heroin Lives with: Spouse/Significant other Family History: Arthritis, Hyperlipidemia, Hypertension Patient has homicidal ideation: No Pulmonary Medical History: Reports: Hx Asthma Renal/ Medical History: Denies: Hx Peritoneal Dialysis Musculoskeletal Medical History: Reports Hx Arthritis, Reports Hx Musculoskeletal Deformity, Reports Hx Musculoskeletal Trauma Psychiatric Medical History: Reports: Hx Anxiety, Hx Bipolar Disorder, Hx Depression Past Surgical History: Reports: Hx Orthopedic Surgery - L4 L5 FUSION 2010, hardware removed from the spine due to infection - Immunizations Immunizations up to date: Yes Hx Diphtheria, Pertussis, Tetanus Vaccination: Yes - unknown Review of Systems - Review of Systems Constitutional: No symptoms reported EENT: No symptoms reported Cardiovascular: No symptoms reported Respiratory: No symptoms reported Gastrointestinal: No symptoms reported Genitourinary: No symptoms reported Male Genitourinary: No symptoms reported Musculoskeletal: See HPI Skin: No symptoms reported Hematologic/Lymphatic: No symptoms reported Neurological/Psychological: No symptoms reported Physical Exam - Vital signs Vitals: Temp Pulse Resp BP Pulse Ox 98.3 F 81 18 133/75 H 100 03/30/20 17:14 03/30/20 17:14 03/30/20 17:14 03/30/20 17:14 03/30/20 17:14 - Notes Notes: GENERAL: Thin and slightly chronically ill-appearing. Sleeping and easily aroused. HEAD: Normocephalic, atraumatic. EYES: Pupils equal, round, and reactive to light. Extraocular movements intact. ENT: Oral mucosa moist, tongue midline. Oropharynx unremarkable. Airway patent. NECK: Full range of motion. Supple. Trachea midline. No lymphadenopathy. LUNGS: Clear to auscultation bilaterally, no wheezes, rales, or rhonchi. No respiratory distress. Non-tender chest wall. HEART: Regular rate and rhythm. No murmur ABDOMEN: Soft, non-tender. Non-distended. EXTREMITIES: Moves all 4 extremities spontaneously. No edema, normal radial and dorsalis pedis pulses bilaterally. No cyanosis. BACK: Tenderness along the general lumbar area, most specifically to the left paralumbar musculature. Negative straight leg raise. Patient ambulates without difficulty. No noted midline tenderness, no saddle anesthesia, no signs of trauma. Normal upper and lower extremity range of motion, normal strength, normal distal neurovascular exam. NEUROLOGICAL: Alert and oriented x3. Normal speech. Cranial nerves II through XII grossly intact. Strength 5/5 in all extremities. PSYCH: Normal affect, normal mood. SKIN: Scattered healed lesions in various stages over the forearms bilaterally, otherwise unremarkable, no significant erythema, fluctuance, induration, or other concerning findings. Course - Re-evaluation Re-evalutation: Patient with tenderness over the general lumbar area on exam, negative straight leg raise, no saddle anesthesia, no neurological deficits, patient had a specific injury and symptoms started the day afterwards. There is specific tenderness along the paralumbar musculature suggesting muscle spasm as well. He has no fever, no tachycardia, no leukocytosis, chemistry unremarkable, urinalysis unremarkable, CAT scan from triage reviewed and shows no acute findings. Blood cultures are pending because patient is an IV drug abuser. However based on his negative work-up, injury, specific exam consistent with the injury, lack of deficits, and lack of signs of infection I do have a low suspicion of epidural abscess or other acute emergent abnormality. I discussed results with patient, discussed with Dr. Drummond, patient will be discharged with symptom management pending blood cultures, and he is to return for any concerning symptoms which were discussed in detail. Patient and significant other state understanding and agreement. Stable and well-appearing at time of discharge. Patient ambulates without difficulty. - Vital Signs Vital signs: Temp Pulse Resp BP Pulse Ox 97.5 F 73 16 124/80 98 03/31/20 05:00 03/31/20 05:00 03/31/20 02:40 03/31/20 05:00 03/31/20 05:00 - Laboratory Result Diagrams: 03/30/20 17:42 03/30/20 17:42 Laboratory results interpreted by me: 03/30/20 03/30/20 03/30/20 17:42 17:42 17:42 RDW 14.6 H Carbon Dioxide 32 H Glucose 115 H Calcium 10.7 H Total Protein 8.5 H Urine Protein 30 H Urine Ketones TRACE H Urine Urobilinogen 2.0 H Ur Leukocyte Esterase TRACE H Urine Ascorbic Acid 40 H Discharge - Discharge Clinical Impression: Dehydration Fall Qualifiers: Encounter type: initial encounter Qualified Code(s): W19.XXXA - Unspecified fall, initial encounter Lower back pain Qualifiers: Chronicity: acute Back pain laterality: bilateral Sciatica presence: without sciatica Qualified Code(s): M54.5 - Low back pain Condition: Stable Disposition: HOME, SELF-CARE Additional Instructions: Your work-up shows dehydration but no other concerning findings, your imaging does not show any fractures or obvious concerning findings at this time. This is most likely musculoskeletal injury and muscle spasm. I recommend heat to the muscle over your back, [id number] anti-inflammatory such as ibuprofen, and the prescribed muscle relaxers as needed. We have blood cultures pending, you will be contacted for any concerning findings. Avoid any recreational/illegal substances, these are extremely dangerous and will lead to your with continued use. Return if you worsen including developing numbness, inability to control your bowel or bladder, fever, severe worsening pain, vomiting, or any other concerning symptoms. Prescriptions: Cyclobenzaprine HCl 1 - 2 tab PO Q8H PRN #20 tablet PRN Reason:
--- NOTE | 2020-03-31 03:27 | RADIOLOGY REPORT (SQ) ---
EXAM DESCRIPTION: CT ABDOMEN PELVIS WITH IV CONTRAST COMPLETED DATE/TME: 03/31/2020 00:00 CLINICAL HISTORY: Lumbar abscess COMPARISON: None Available. TECHNIQUE: CT of the abdomen and pelvis performed following IV administration of . FINDINGS: Lung Bases: The visualized lung bases are clear. Bones: Postoperative change from of the lumbar spine at L4 S1 with posterior laminectomies. Severe degenerative endplate changes at L3/4. Multilevel facet arthropathy. No well-circumscribed fluid collections adjacent to the lumbar spine. Abdomen: Liver: The liver has normal size and density. No intrahepatic biliary dilatation. Gallbladder: No calcified gallstones. Spleen, Pancreas, and Adrenal Glands: The spleen, pancreas, and adrenal glands are unremarkable. Kidneys: No hydronephrosis or obstructing calculus. Vasculature: The aorta has normal caliber and position. IVC filter in place. The portal vein is patent. The proximal visceral and renal arteries are patent. Stomach: The stomach and duodenum have normal course. Other: No free intraperitoneal air. No free fluid or lymphadenopathy. Pelvis: Bladder: Urinary bladder is unremarkable. Bowel: No dilated loops of large or small bowel. Appendix: Normal appendix. Pelvis: Prostate is not enlarged. IMPRESSION: 1. No acute inflammatory or obstructive process identified. There is continued concern for abnormality of the lumbar spine MRI could provide additional characterization. This exam was performed according to our departmental dose-optimization program, which includes automated exposure control, adjustment of the mA and/or kV according to patient size and/or use of iterative reconstruction technique.
[2020-03-31] MEDS ORDERED: NORMAL SALINE 1000 ML 1,000 ML IV ONE (03:33)
[2020-03-31 05:05] VITALS: BP 124/80
== END 2020-03-31 05:07 | disposition home or self-care (01) ==
LOC: ER 17:09
DX: M54.5 Low back pain (principal); F17.200 Nicotine dependence, unspecified, uncomplicated; E86.0 Dehydration; Z98.1 Arthrodesis status
CPT/HCPCS: 99284; 96361; 96374; 36415; 87040; 85025; 80053; 81001; 80307; 74177; J1885; J7030

== ENCOUNTER 2020-05-21 00:08 | Emergency (ER) | payer OTHER ==
[2020-05-21] MEDS ORDERED: SULFAMETHOXAZOLE/TRIMETHOPRIM 800-160 MG TABLET PO ONE (00:55)
[2020-05-21] MEDS ORDERED: DIPH/PERTUSS(ACELL)/TETANUS VAC/PF 0.5 ML SYR (>=10YO) IM ONE (00:55)
[2020-05-21] MEDS ORDERED: CEPHALEXIN 500 MG CAPSULE PO ONE (00:56)
[2020-05-21] MEDS ORDERED: IBUPROFEN 600 MG TABLET PO ONE (00:56)
--- NOTE | 2020-05-21 00:56 | ER Document Report ---
ED Medical Screen (RME) - General Chief Complaint: Abscess Stated Complaint: SHOULDER ABSCESS Time Seen by Provider: 05/21/20 00:53 Notes: HPI: 35-year-old male abscess to the left deltoid region of the shoulder for approximately 4 to 5 days believes he may have been bitten by something. Has had a prior abscess on the arm, denies drug use or alcohol use. He is a smoker. Has had chills but no definitive fevers. States he stood in the shower and did drain this moderate amount of purulent discharge from the area 1 to 2 days ago PHYSICAL EXAMINATION: There is a raised erythematous firm region over the left deltoid measuring approximately 4.5 cm x 3 cm with some induration and mild fluctuance. I have greeted and performed a rapid initial assessment of this patient. A comprehensive ED assessment and evaluation of the patient, analysis of test results and completion of medical decision making process will be conducted by an additional ED providers. TRAVEL OUTSIDE OF THE [place] IN LAST 30 DAYS: No - Related Data Allergies/Adverse Reactions: No Known Allergies Allergy (Verified 05/21/20 00:53) Past Medical History Pulmonary Medical History: Reports: Hx Asthma Renal/ Medical History: Denies: Hx Peritoneal Dialysis Musculoskeltal Medical History: Reports Hx Arthritis, Reports Hx Musculoskeletal Deformity, Reports Hx Musculoskeletal Trauma Psychiatric Medical History: Reports: Hx Anxiety, Hx Bipolar Disorder, Hx Depression Past Surgical History: Reports: Hx Orthopedic Surgery - L4 L5 FUSION 2010, hardware removed from the spine due to infection - Immunizations Immunizations up to date: Yes Hx Diphtheria, Pertussis, Tetanus Vaccination: Yes - unknown
== END 2020-05-21 03:50 | disposition left against medical advice (07) ==
LOC: ER 00:08
DX: L02.419 Cutaneous abscess of limb, unspecified (principal); J45.909 Unspecified asthma, uncomplicated; F17.200 Nicotine dependence, unspecified, uncomplicated; Z53.20 Procedure and treatment not carried out because of patient's decision for unspecified reasons
CPT/HCPCS: 99281

== ENCOUNTER 2020-05-21 20:46 | Emergency (ER) | payer OTHER ==
--- NOTE | 2020-05-21 21:18 | ER Document Report ---
ED Medical Screen (RME) - General Chief Complaint: Insect Bite Stated Complaint: POSS ABCESS Time Seen by Provider: 05/21/20 21:09 Mode of Arrival: Ambulatory Information source: Patient Notes: Patient presents complaining of abscess to the left upper arm for the past week. Patient complains of body aches. Patient also complains of chest pain and left-sided neck pain for the past 3 days. Patient denies any cough or cold symptoms. Patient denies any nausea or vomiting. Patient has a history of asthma, and a previous history of fungal bloodstream infection 2 years ago. Patient reports history of IV drug abuse although states that he is presently clean. I have greeted and performed a rapid initial assessment of this patient. A comprehensive ED assessment and evaluation of the patient, analysis of test results and completion of the medical decision making process will be conducted by additional ED providers. TRAVEL OUTSIDE OF THE [place] IN LAST 30 DAYS: No - Related Data Allergies/Adverse Reactions: No Known Allergies Allergy (Verified 05/21/20 00:53) Past Medical History Pulmonary Medical History: Reports: Hx Asthma Renal/ Medical History: Denies: Hx Peritoneal Dialysis Musculoskeltal Medical History: Reports Hx Arthritis, Reports Hx Musculoskeletal Deformity, Reports Hx Musculoskeletal Trauma Psychiatric Medical History: Reports: Hx Anxiety, Hx Bipolar Disorder, Hx Depression Past Surgical History: Reports: Hx Orthopedic Surgery - L4 L5 FUSION 2010, hardware removed from the spine due to infection - Immunizations Immunizations up to date: Yes Hx Diphtheria, Pertussis, Tetanus Vaccination: Yes - unknown Physical Exam - Vital signs Vitals: Temp Pulse Resp BP Pulse Ox 98.8 F 103 H 19 134/87 H 100 05/21/20 20:51 05/21/20 20:51 05/21/20 20:51 05/21/20 20:51 05/21/20 20:51 - General General appearance: Appears well In distress: None Notes: Patient with a tender indurated abscess to left deltoid with surrounding erythema Course - Vital Signs Vital signs: Temp Pulse Resp BP Pulse Ox 98.8 F 103 H 19 134/87 H 100 05/21/20 20:51 05/21/20 20:51 05/21/20 20:51 05/21/20 20:51 05/21/20 20:51
--- NOTE | 2020-05-21 22:08 | RADIOLOGY REPORT (SQ) ---
EXAM DESCRIPTION: X-RAY CHEST- One View CLINICAL HISTORY: Chest pain COMPARISON: December 19, 2011 TECHNIQUE: Single view of the chest. FINDINGS: There are no discrete air space infiltrates, pneumothoraces or pleural effusions. The pulmonary vascularity is normal. The cardiomediastinal silhouette is normal in size. Presumed inferior vena cava filter is partially visualized in the upper abdomen. No suspicious lytic or blastic osseous lesions are identified. IMPRESSION: There are no acute lung parenchymal findings.
[2020-05-22 00:17] LABS: ABSOLUTE EOSINOPHILS # (AUTO) 0.3 10^3/uL (0.0-0.6); ABSOLUTE LYMPHOCYTES (AUTO) 2.2 10^3/uL (0.5-4.7); ABSOLUTE MONOCYTES (AUTO) 1.2 10^3/uL (0.1-1.4); ABSOLUTE NEUT (AUTO) 8.3 10^3/uL (1.7-8.2); BASOPHILS % (AUTO) 0.3 % (0-2); EOSINOPHILS % (AUTO) 2.7 % (0-6); HEMATOCRIT 36.9 % (37.9-51.0); HEMOGLOBIN 12.7 g/dL (13.5-17.0); LYMPHOCYTES % (AUTO) 18.4 % (13-45); MEAN CORPUSCULAR HEMOGLOBIN 29.7 pg (27.0-33.4); MEAN CORPUSCULAR HGB CONC 34.5 g/dL (32.0-36.0); MEAN CORPUSCULAR VOLUME 86 fl (80-97); MONOCYTES % (AUTO) 9.8 % (3-13); PLATELET COUNT 309 10^3/uL (150-450); RED BLOOD COUNT 4.29 10^6/uL (4.35-5.55); RED CELL DISTRIBUTION WIDTH 14.1 % (11.5-14.0); SEGMENTED NEUTROPHILS % (AUTO) 68.8 % (42-78); TOTAL CELLS COUNTED % (AUTO) 100 %; WHITE BLOOD COUNT 12.1 10^3/uL (4.0-10.5)
[2020-05-22 00:36] LABS: ALBUMIN 4.2 g/dL (3.5-5.0); ALKALINE PHOSPHATASE 104 U/L (38-126); ANION GAP 10 (5-19); ASPARTATE AMINO TRANSFERASE 22 U/L (17-59); BILIRUBIN,DIRECT 0.3 mg/dL (0.0-0.4); BILIRUBIN,TOTAL 0.6 mg/dL (0.2-1.3); BLOOD UREA NITROGEN 14 mg/dL (7-20); CALCIUM 9.6 mg/dL (8.4-10.2); CARBON DIOXIDE 26 mmol/L (22-30); CHLORIDE 106 mmol/L (98-107); GLUCOSE 86 mg/dL (75-110); TOTAL PROTEIN 7.9 g/dL (6.3-8.2)
[2020-05-22] MEDS ORDERED: LIDOCAINE 1%/EPINEPHRINE INJ 20 ML VIAL INJ ONE (01:25)
--- NOTE | 2020-05-22 01:50 | ER Document Report ---
ED General - General Chief Complaint: Chest Pain Stated Complaint: POSS ABCESS Time Seen by Provider: 05/21/20 21:09 Mode of Arrival: Ambulatory TRAVEL OUTSIDE OF THE [place] IN LAST 30 DAYS: No - HPI Quality of pain: Sharp Severity: Severe Pain Level: 5 Context: This is a 35-year-old male who presents to the emergency department complaining of a abscess on his left shoulder. Patient states the abscess is been there for about a week. Patient is also complaining of some generalized myalgias. Patient admits to a history of IV drug abuse but states that he is presently clean. Patient states that he has been trying to squeeze the abscess to express with purulent material from it with some success. Patient describes the pain as sharp and severe as a 5 on a scale of 0-5. Patient states there are no alleviating factors and pain is exacerbated by touch. Associated symptoms: Other - See HPI Exacerbated by: Other - See HPI Relieved by: Other - See HPI - Related Data Allergies/Adverse Reactions: No Known Allergies Allergy (Verified 05/21/20 00:53) Past Medical History - General Information source: Patient - Social History Smoking Status: Current Every Day Smoker Drug Abuse: Other - Reports history of IV drug abuse but states he is currently clean Family History: Arthritis, Hyperlipidemia, Hypertension Patient has suicidal ideation: No Patient has homicidal ideation: No Pulmonary Medical History: Reports: Hx Asthma Renal/ Medical History: Denies: Hx Peritoneal Dialysis Musculoskeletal Medical History: Reports Hx Arthritis, Reports Hx Musculoskeletal Deformity, Reports Hx Musculoskeletal Trauma Psychiatric Medical History: Reports: Hx Anxiety, Hx Bipolar Disorder, Hx Depression Past Surgical History: Reports: Hx Orthopedic Surgery - L4 L5 FUSION 2010, hardware removed from the spine due to infection - Immunizations Immunizations up to date: Yes Hx Diphtheria, Pertussis, Tetanus Vaccination: Yes - unknown Review of Systems - Review of Systems Constitutional: No symptoms reported EENT: No symptoms reported Cardiovascular: No symptoms reported Respiratory: No symptoms reported Gastrointestinal: No symptoms reported Genitourinary: No symptoms reported Male Genitourinary: No symptoms reported Musculoskeletal: Other - Myalgias Skin: See HPI Hematologic/Lymphatic: No symptoms reported Neurological/Psychological: No symptoms reported -: Yes All other systems reviewed and negative Physical Exam - Vital signs Vitals: Temp Pulse Resp BP Pulse Ox 98.8 F 103 H 19 134/87 H 100 05/21/20 20:51 05/21/20 20:51 05/21/20 20:51 05/21/20 20:51 05/21/20 20:51 - Notes Notes: CONSTITUTIONAL [Vital signs reviewed, Patient appears comfortable, Alert and oriented X 3, Normal stature.] HEAD [Atraumatic, Normocephalic.] EYES [Eyes are normal to inspection, No discharge from eyes, Extraocular muscles intact, Sclera are normal, Conjunctiva are normal.] NECK [Normal ROM, No jugular venous distention, No meningeal signs, no carotid bruit.] RESPIRATORY CHEST [Chest is nontender, Breath sounds normal, No respiratory distress.] CARDIOVASCULAR [RRR, No murmurs, Normal S1 S2, No rub, No gallop.] ABDOMEN [Abdomen is nontender, No pulsatile masses, No other masses, Bowel sounds normal, No distension, No peritoneal signs, No hernias.] BACK [There is no CVA Tenderness, There is no tenderness to palpation, Normal inspection.] UPPER EXTREMITY Exam is significant for a area of induration over the left deltoid that is approximately 6 cm across. The area is indurated and tender to touch and there is a punctate area in the center of the swollen, erythematous lesion that exudes a small amount of purulent material and squeezed by the patient.] LOWER EXTREMITY [Inspection normal, No cyanosis, No clubbing, No edema, No calf tenderness, 2+ femoral pulses.] NEURO [No focal motor deficits, No focal sensory deficits, Speech normal.] SKIN Lesion on left shoulder as described above under upper extremity exam.] LYMPHATIC [No adenopathy in neck.] PSYCHIATRIC [Normal affect. ] Course - Re-evaluation Re-evalutation: 05/22/20 02:22 Results of ED MSE, follow-up discussed with patient. All questions were answered prior to discharge. Emergency signs and symptoms, reasons to return to the emergency department discussed with patient. - Vital Signs Vital signs: Temp Pulse Resp BP Pulse Ox 98.8 F 103 H 19 134/87 H 100 05/21/20 20:51 05/21/20 20:51 05/21/20 20:51 05/21/20 20:51 05/21/20 20:51 - Laboratory Result Diagrams: 05/21/20 23:53 05/21/20 23:53 Laboratory results interpreted by me: 05/21/20 23:53 WBC 12.1 H RBC 4.29 L Hgb 12.7 L Hct 36.9 L RDW 14.1 H Absolute Neuts (auto) 8.3 H - EKG Interpretation by Me Additional EKG results interpreted by me: 05/22/20 02:26 EKG obtained on 05/21/2020 at 2344 hrs. was interpreted by this MD. Findings: Normal sinus rhythm, rate 97, normal axis, IL interval is within normal limits, P waves proceed QRS complexes, QRS complexes appear narrow, QTC is within normal limits. There are no obvious patterns of ST segment elevation or depression present to suggest acute myocardial ischemia or infarction. Impression: Normal sinus rhythm with nonspecific ST segments. This EKG was compared to prior EKG from 03/15/2017 morphology is grossly similar and there do not appear to be any acute changes on the most current EKG. Procedures - Incision and Drainage Left Shoulder Time completed: 02:21 - abscess Type: Simple Anesthetic type: 2% Lidocaine mL's of anesthetic: 6 Blade size: 11 I&D procedure: Shurclens applied Incision Method: Incision made by scalpel Amount/type of drainage: 3 cc purulent material Discharge - Discharge Clinical Impression: Abscess Condition: Stable Disposition: HOME, SELF-CARE Instructions: Abscess ([facility]) Additional Instructions: Return to the Emergency Department without delay if any worse. Contact the [facility] on 05/22/2020 to arrange follow-up care for your drained abscess. HOME CARE INSTRUCTIONS & INFORMATION: Thank you for choosing us for your medical needs. We hope you're satisfied with the care you received. After you leave, you must properly care for your problem and, at the same time, observe its progress. Any condition can change. Some illnesses can change rapidly over hours or days. If your condition worsens, return to the Emergency Department or see your physician promptly. ABOUT YOUR X-RAYS AND EKG'S: If you had an EKG or X-rays taken, they have been read by the Emergency Physician. The X-rays and EKG's will also be read by a Radiologist or Safety Specialist within 24 hours. If discrepancies are noted, you will be notified by telephone. Please be certain the ED has a correct telephone number & address where you can be reached. Also, realize that some fractures or abnormalities do not show up on initial X-rays. If your symptoms continue, see your physician. ABOUT YOUR LABORATORY TEST: If you had laboratory tests, the results have been reviewed by the Emergency Physician. Some test results (for example cultures) may not be available for several days. You will be contacted if any test result shows you need additional treatment. Please be certain the ED has a correct telephone number and address where you can be reached. ABOUT YOUR MEDICATIONS: You will receive instructions on how to take your medicine on the prescription label you receive. Additional information may be provided by the Pharmacy. If you have questions afterwards, call the ED for clarification or further instructions. Some prescribed medications may cause drowsiness. Do not perform tasks such as driving a car or operating machinery without consulting your Pharmacist. If you feel you need a refill of pain medication, your condition will need re-evaluation. Please do not call for a refill of any medication. ABOUT YOUR SIGNATURE: Signature of this document acknowledges to followin. Understanding that you received emergency treatment and that you may be released before al medical problems are known or treated. Please be certain the ED has a correct phone number & address where you can be reached. 2. Acknowledgement that you will arrange for follow-up care as recommended. 3. Authorization for the Emergency Physician to provide information to your follow-up Physician in order to maximize your care. AT ANY TIME, IF YOUR SYMPTOMS CHANGE SIGNIFICANTLY OR WORSEN OR YOU DEVELOP NEW SYMPTOMS, RETURN TO THE EMERGENCY DEPARTMENT IMMEDIATELY FOR RE-EVALUATION. OUR GOAL IS TO PROVIDE EXCELLENT MEDICAL CARE! WE HOPE THAT WE HAVE MET YOUR EXPECTATIONS DURING YOUR EMERGENCY DEPARTMENT VISIT AND THAT YOU FEEL YOU HAVE RECEIVED EXCELLENT CARE! Prescriptions: Clindamycin HCl [Cleocin 150 mg Capsule] 450 mg PO TID 7 Days #63 capsule
[2020-05-22] MEDS ORDERED: CLINDAMYCIN PHOSPHATE INJ 300 MG/2 ML SDV IM ONE (02:17)
[2020-05-22] MEDS ORDERED: IBUPROFEN 600 MG TABLET PO ONE (02:18)
--- NOTE | 2020-05-22 02:53 | EKG REPORT ---
SEVERITY:- NORMAL ECG - SINUS RHYTHM : Confirmed by: Juan Ramirez MD 22-May-2020 02:52:31
[2020-05-22 03:52] VITALS: BP 133/79
== END 2020-05-22 03:15 | disposition home or self-care (01) ==
LOC: ER 20:46
DX: L02.414 Cutaneous abscess of left upper limb (principal); R07.9 Chest pain, unspecified; F17.200 Nicotine dependence, unspecified, uncomplicated
CPT/HCPCS: 93005; 99285; 96372; 36415; 85025; 80053; 84484; 71045; 93010; 10060; J3490 ×2

== ENCOUNTER 2020-06-23 05:15 | Emergency (ER) | payer SELFPAY ==
[2020-06-23 06:10] LABS: ABSOLUTE BASOPHILS # (AUTO) 0.1 10^3/uL (0.0-0.2); ABSOLUTE EOSINOPHILS # (AUTO) 0.5 10^3/uL (0.0-0.6); ABSOLUTE MONOCYTES (AUTO) 0.9 10^3/uL (0.1-1.4); ABSOLUTE NEUT (AUTO) 7.3 10^3/uL (1.7-8.2); BASOPHILS % (AUTO) 0.9 % (0-2); EOSINOPHILS % (AUTO) 4.4 % (0-6); HEMATOCRIT 36.4 % (37.9-51.0); HEMOGLOBIN 12.8 g/dL (13.5-17.0); LYMPHOCYTES % (AUTO) 18.3 % (13-45); MEAN CORPUSCULAR HEMOGLOBIN 30.4 pg (27.0-33.4); MEAN CORPUSCULAR HGB CONC 35.3 g/dL (32.0-36.0); MEAN CORPUSCULAR VOLUME 86 fl (80-97); MONOCYTES % (AUTO) 8.3 % (3-13); PLATELET COUNT 330 10^3/uL (150-450); RED BLOOD COUNT 4.21 10^6/uL (4.35-5.55); RED CELL DISTRIBUTION WIDTH 14.5 % (11.5-14.0); SEGMENTED NEUTROPHILS % (AUTO) 68.1 % (42-78); TOTAL CELLS COUNTED % (AUTO) 100 %; WHITE BLOOD COUNT 10.7 10^3/uL (4.0-10.5)
[2020-06-23 06:31] LABS: ALBUMIN 4.4 g/dL (3.5-5.0); ALKALINE PHOSPHATASE 107 U/L (38-126); ANION GAP 10 (5-19); ASPARTATE AMINO TRANSFERASE 41 U/L (17-59); BILIRUBIN,DIRECT 0.4 mg/dL (0.0-0.4); BILIRUBIN,TOTAL 0.5 mg/dL (0.2-1.3); BLOOD UREA NITROGEN 13 mg/dL (7-20); CALCIUM 10.9 mg/dL (8.4-10.2); CARBON DIOXIDE 31 mmol/L (22-30); CHLORIDE 102 mmol/L (98-107); GLUCOSE 143 mg/dL (75-110); POTASSIUM 4.1 mmol/L (3.6-5.0); TOTAL PROTEIN 8.1 g/dL (6.3-8.2)
[2020-06-23 07:19] LABS: AMORPHOUS SEDIMENT,URINE TRACE /HPF; APPEARANCE,URINE SLIGHTLY-CLOUDY; BILIRUBIN,URINE NEGATIVE (NEGATIVE); COLOR,URINE YELLOW; GLUCOSE, URINE NEGATIVE (NEGATIVE); KETONES,URINE NEGATIVE (NEGATIVE); LEUKOCYTE ESTERASE,URINE NEGATIVE (NEGATIVE); NITRITE,URINE NEGATIVE (NEGATIVE); PROTEIN,URINE NEGATIVE (NEGATIVE); URINE SPECIFIC GRAVITY 1.021; UROBILINOGEN,URINE NEGATIVE mg/dL (<2.0)
--- NOTE | 2020-06-23 08:19 | RADIOLOGY REPORT (SQ) ---
EXAM DESCRIPTION: KUB/ABDOMEN (SINGLE VIEW) IMAGES COMPLETED DATE/TIME: 06/23/2020 7:57 am REASON FOR STUDY: rectal bleed/hemorrhoids COMPARISON: 03/31/2020 NUMBER OF VIEWS: One view. TECHNIQUE: Supine radiographic image of the abdomen acquired. LIMITATIONS: None. FINDINGS: BOWEL GAS PATTERN: No pathologically dilated loops of bowel. Significant formed stool thr oughout the colon. CALCIFICATIONS: Questionable small lower pole right renal stone. SOFT TISSUES: No gross mass or suggestion of organomegaly. HARDWARE: IVC filter with tip at L1-2 disc space, stable. BONES: No acute fracture dislocation. Interbody spacers at L4-5 and L5-S1. Significant disc height loss and endplate sclerosis at L3-4, similar to prior CT. OTHER: No other significant finding. IMPRESSION: 1. No evidence of intestinal obstruction. Significant formed stool throughout the colo n. 2. Significant disc height loss and endplate sclerosis at L3-4, similar prior. TECHNICAL DOCUMENTATION: JOB ID: [id number] 2010 [employer]- All Rights Reserved Reading location - IP/workstation name: [email or web address]
--- NOTE | 2020-06-23 09:00 | ER Document Report ---
Entered by NOLVIA ABAD SCRIBE 06/23/20 0657 Acting as scribe for:PÉREZ SIGNH MD ED GI Bleed / Rectal Pain - General Chief Complaint: Rectal Bleeding Stated Complaint: RECTAL BLEEDING Mode of Arrival: Ambulatory Information source: Patient Notes: This 35 year old male patient with a history of hemorrhoids presents to the ED today with complaints of bright red blood per rectum that started around 2300 last night. Patient states that he noticed a pink tinge to the toilet paper afte r wiping around 1200 yesterday and that later on in the evening, he felt "wet" so he went to the bathroom and noticed heavy rectal bleeding. He admits that he strains with bowel movements. Denies any abdominal pain, nausea/vomiting, chest pain, or shortness of breath. He mentions that he was on blood thinners in the past due to a DVT in his RLE, but states that he is not currently on any blood thinners. TRAVEL OUTSIDE OF THE [place] IN LAST 30 DAYS: No - Related Data Allergies/Adverse Reactions: No Known Allergies Allergy (Verified 06/23/20 05:30) Past Medical History - General Information source: Patient, [facility] Records - Social History Smoking Status: Current Every Day Smoker Smoking Education Provided: No Frequency of alcohol use: None Drug Abuse: Heroin Family History: Reviewed & Not Pertinent, Arthritis, Hyperlipidemia, Hypertension Patient has suicidal ideation: No Patient has homicidal ideation: No - Past Medical History Cardiac Medical History: Reports: Hx DVT Pulmonary Medical History: Reports: Hx Asthma Musculoskeletal Medical History: Reports Hx Arthritis, Reports Hx Musculoskeletal Deformity, Reports Hx Musculoskeletal Trauma Psychiatric Medical History: Reports: Hx Anxiety, Hx Bipolar Disorder, Hx Depression Past Surgical History: Reports: Hx Orthopedic Surgery - L4 L5 FUSION 2010, hardware removed from the spine due to infection - Immunizations Immunizations up to date: Yes Hx Diphtheria, Pertussis, Tetanus Vaccination: Yes - unknown Review of Systems - Review of Systems Constitutional: No symptoms reported EENT: No symptoms reported Cardiovascular: See HPI. denies: Chest pain Respiratory: See HPI. denies: Short of breath Gastrointestinal: See HPI, Rectal bleeding. denies: Abdominal pain, Nausea, Vomiting Genitourinary: No symptoms reported Male Genitourinary: No symptoms reported Musculoskeletal: No symptoms reported Skin: No symptoms reported Hematologic/Lymphatic: No symptoms reported Neurological/Psychological: No symptoms reported -: Yes All other systems reviewed and negative Physical Exam - Vital signs Vitals: Temp Pulse Resp BP Pulse Ox 98.4 F 91 16 134/89 H 98 06/23/20 05:21 06/23/20 05:21 06/23/20 05:21 06/23/20 05:21 06/23/20 05:21 - General General appearance: Alert In distress: Mild - HEENT Head: Normocephalic, Atraumatic Eyes: Normal Extraocular movements intact: Yes Pupils: PERRL Tympanic membrane: Normal. No: Bulging, Injected Pharynx: Normal. No: Erythema Neck: Normal, Supple - Respiratory Respiratory status: No respiratory distress Chest status: Nontender Breath sounds: Normal Chest palpation: Normal - Cardiovascular Rhythm: Regular Heart sounds: Normal auscultation, S1 appreciated, S2 appreciated Murmur: No Friction rub: No Gallop: None auscultated - Abdominal Inspection: Normal Distension: No distension Bowel sounds: Normal Tenderness: Nontender - Abdomen soft Organomegaly: No organomegaly - Rectal Stool: Heme positive, Other - Brown stool Hemorrhoids: External, Other - No active bleeding Notes: [employer] present - Back Back: Normal, Nontender - Extremities General upper extremity: Normal inspection General lower extremity: Normal inspection. No: Edema - Neurological Neuro grossly intact: Yes Orientation: AAOx4 Chrissy Coma Scale Eye Opening: Spontaneous Chrissy Coma Scale Verbal: Oriented Chrissy Coma Scale Motor: Obeys Commands Hamilton Coma Scale Total: 15 - Psychological Associated symptoms: Normal affect, Normal mood - Skin Skin Temperature: Warm Skin Moisture: Dry Skin Color: Normal Skin irregularity: other - Open sores noted to bilateral upper extremities Course - Re-evaluation Re-evalutation: 06/23/20 08:53 Patient resting comfortably not showing any signs of distress at this time. No active GI bleeding at this time. Patient has a known history of hemorrhoids. - Vital Signs Vital signs: Temp Pulse Resp BP Pulse Ox 98.2 F 91 14 117/81 95 06/23/20 08:01 06/23/20 05:21 06/23/20 08:01 06/23/20 08:01 06/23/20 08:01 06/23/20 08:53 Vital signs stable. - Laboratory Result Diagrams: 06/23/20 05:41 06/23/20 05:41 Laboratory results interpreted by me: 06/23/20 06/23/20 05:41 05:41 WBC 10.7 H RBC 4.21 L Hgb 12.8 L Hct 36.4 L RDW 14.5 H Carbon Dioxide 31 H Glucose 143 H Calcium 10.9 H 06/23/20 08:54 Patient has abnormalities there are no critical on laboratory showing a white blood cell count 10.7 hemoglobin 12.8 and a glucose of 143 with a calcium of 10.9. These lab values are marginally elevated a marginally low not showing any signs of distress. - Diagnostic Test Radiology reviewed: Image reviewed, Reports reviewed Radiology results interpreted by me: 06/23/20 08:55 KUB X-Ray 06/23/20 07:43 IMPRESSION: 1. No evidence of intestinal obstruction. Significant formed stool throughout the colon. 2. Significant disc height loss and endplate sclerosis at L3-4, similar prior. KUB x-ray shows no obstruction of note there is significant stool throughout the colon perhaps consistent with constipation also disc height loss on the endplate with sclerosis at L3-4. This is not a new finding. Discharge - Discharge Clinical Impression: Hemorrhoids, external, Rectal bleeding, Heroin abuse, Constipation Condition: Stable Disposition: HOME, SELF-CARE Additional Instructions: Hemorrhoids You have hemorrhoids. These are formed by enlargement of veins around the anus. The cause is increased pressure in the veins, from or straining at bowel movements. Hemorrhoids often cause itching and bleeding with bowel movements. When a hemorrhoid becomes clotted, severe pain and swelling result. Soothing creams and suppositories are often prescribed. Warm sitz-baths may also decrease pain, swelling, and itching. Eat a high-fiber diet. Stool softeners such as Metamucil will help. Keep the area very clean. Medicated cleansing pads (such as Tucks) are useful after bowel movements. A hose-mounted shower unit (like a shower massa anna at low water pressure) can be used to clean around tender hemorrhoid tags. You should call the doctor or return if you develop fever, increasing pain, or an enlarging mass around the anus, or if you simply fail to improve with treatment.Constipation Constipation is a common problem. It is especially likely as you get older. Constipation is a common cause of abdominal pain, but sometimes causes no symptoms at all. Causes of constipation include certain medications, dehydration, diets, inactivity, and low-fiber intake. Rarely, it can be a symptom of underlying disease. The physician has evaluated you for this. Avoid constipation by eating a diet high in fiber, fruits, and vegetables. Drink plenty of liquids. Get regular exercise. If possible, avoid constipating medicines like narcotic pain medication. Some vitamin tablets can cause constipation. Stool softeners may be needed for difficult cases. An excellent stool softener is Konsyl which is available at [employer], [employer]. Just add a teaspoon to a glass of pineapple or orange juice daily or twice a day if needed. Laxatives are useful for occasional constipation. You should use them only when necessary. Too-frequent use can make your bowels dependent on them. Some over the counter laxatives available without prescription are: Milk of Magnesia, 1-2 tablespoons twice a day Dulcolax, 5 mg pill or 10 mg suppository. Citrate of Magnesia, 4-5 ounces a day for a day or two For acute constipation, Fleet's Enemas and Dulcolax suppositories are helpful. Chronic, usp use of laxatives or enemas is not a good idea. Your bowel may become dependant on them. You do not need to have a bowel movement every day. Many people do fine with a bowel movement every three or four days. You should call your doctor or return for re-evaluation if you pass blood in the stool, or if you develop fever or increasing abdominal pain. Prescriptions: Hydrocortisone Acetate [Anusol Hc 25 mg Supp.rect] 1 supp.rect VA BID #14 supp.rect I personally performed the services described in the documentation, reviewed and edited the documentation which was dictated to the scribe in my presence, and it accurately records my words and actions.
[2020-06-23 09:19] VITALS: BP 125/82
== END 2020-06-23 09:19 | disposition home or self-care (01) ==
LOC: ER 05:15
DX: K64.4 Residual hemorrhoidal skin tags (principal); F11.10 Opioid abuse, uncomplicated; K59.00 Constipation, unspecified; K62.5 Hemorrhage of anus and rectum; F17.200 Nicotine dependence, unspecified, uncomplicated; Z86.718 Personal history of other venous thrombosis and embolism; Z98.1 Arthrodesis status
CPT/HCPCS: 36415; 74018; 80053; 81001; 85025; 86850; 86900; 86901; 99284

== ENCOUNTER 2020-09-09 21:59 | Emergency (ER) | payer SELFPAY ==
--- NOTE | 2020-09-09 22:33 | ER Document Report ---
ED Medical Screen (RME) - General Chief Complaint: Abscess Stated Complaint: POSSIBLE ABSCESS RIGHT ARM Time Seen by Provider: 09/09/20 22:24 Notes: Patient presents complaining of abscess to right forearm for the past 4 days. Patient states that he has been attempting to drain the abscess by poking holes in the forearm. Patient with swelling to the distal forearm and right hand. Patient also complains of swelling to the lower extremities. Patient does have a history of IV drug abuse and a history of previous fungal infection due to his IV drug abuse. I have greeted and performed a rapid initial assessment of this patient. A comprehensive ED assessment and evaluation of the patient, analysis of test results and completion of the medical decision making process will be conducted by additional ED providers. TRAVEL OUTSIDE OF THE [place] IN LAST 30 DAYS: No - Related Data Allergies/Adverse Reactions: No Known Allergies Allergy (Verified 06/23/20 05:30) Past Medical History - Past Medical History Cardiac Medical History: Reports: Hx DVT Pulmonary Medical History: Reports: Hx Asthma Renal/ Medical History: Denies: Hx Peritoneal Dialysis Musculoskeltal Medical History: Reports Hx Arthritis, Reports Hx Musculoskeletal Deformity, Reports Hx Musculoskeletal Trauma Psychiatric Medical History: Reports: Hx Anxiety, Hx Bipolar Disorder, Hx Depression Past Surgical History: Reports: Hx Orthopedic Surgery - L4 L5 FUSION 2010, hardware removed from the spine due to infection - Immunizations Immunizations up to date: Yes Hx Diphtheria, Pertussis, Tetanus Vaccination: Yes - unknown Physical Exam - Vital signs Vitals: Temp Pulse Resp BP Pulse Ox 98.4 F 95 18 140/98 H 100 09/09/20 22:04 09/09/20 22:04 09/09/20 22:04 09/09/20 22:04 09/09/20 22:04 - General Notes: Abscess to distal right forearm with surrounding erythema, numerous track blanco to bilateral upper extremities Course - Vital Signs Vital signs: Temp Pulse Resp BP Pulse Ox 98.4 F 95 18 140/98 H 100 09/09/20 22:04 09/09/20 22:04 09/09/20 22:04 09/09/20 22:04 09/09/20 22:04
--- NOTE | 2020-09-09 23:38 | RADIOLOGY REPORT (SQ) ---
EXAM DESCRIPTION: XR FOREARM 2 VIEWS COMPLETED DATE/TME: 09/09/2020 23:08 CLINICAL HISTORY: 35 years Male, abscess R FA, hx IVDA COMPARISON: None. Findings: Diffuse swelling at the anterior right forearm. Bones, joints, and soft tissues of the RIGHT XR FOREARM 2 VIEWS appear otherwise unremarkable. IMPRESSION: Swelling.
[2020-09-10] MEDS ORDERED: ACETAMINOPHEN 325 MG TABLET PO ONE (01:56)
--- NOTE | 2020-09-10 04:34 | ER Document Report ---
ED Skin Rash/Insect Bite/Abscs - General Chief Complaint: Abscess Stated Complaint: POSSIBLE ABSCESS RIGHT ARM Time Seen by Provider: 09/09/20 22:24 Mode of Arrival: Ambulatory Information source: Patient Notes: 35-year-old male presented to ED for complaint of abscess to the right forearm for the last 4 days. He states he has been attempting to drain it at home. He states he is homeless. He states he did use heroin last on . He states his abscess is more because he is homeless and outside. He does have a history of a previous fungal infection due to his IV drug use. He is alert oriented respirations regular nonlabored. His arm is swollen from just above his elbow all the way down to his hands. Constitutional: Negative for fever. HENT: Negative for sore throat. Eyes: Negative for visual changes. Cardiovascular: Negative for chest pain. Respiratory: Negative for shortness of breath. Gastrointestinal: Negative for abdominal pain, vomiting or diarrhea. Genitourinary: Negative for dysuria. Musculoskeletal: Negative for back pain. Skin: Large anterior abscess to the forearm with swelling down to the hand and he states he has had abscess for about for 5 days. He states he has been pinching it and poking it at home and he got much worse so he came to the emergency room. He states he last used heroin on patient states he also has pain and swelling to his right leg. I did not appreciate any swelling to the right leg he does have multiple what appeared to be needle blanco but he states he does not use his legs for IV drug use that these are just from insect bites and scratching. No abscesses noted on the legs. Neurological: Negative for headaches, weakness or numbness. 10 point ROS negative except as marked above and in HPI. PHYSICAL EXAMINATION: GENERAL: Unkempt 35-year-old male states he is homeless and has been "picking at his wound for the last 4 days " HEAD: Atraumatic, normocephalic. NECK: Normal range of motion, supple without lymphadenopathy. Trachea midline LUNGS: Breath sounds clear to auscultation bilaterally and equal. No wheezes rales or rhonchi. HEART: Regular rate and rhythm without murmurs. Pulses intact all throughout. ABDOMEN: Soft, nontender, nondistended abdomen. No guarding, no rebound. No masses appreciated. Musculoskeletal: Tenderness and swelling to the right forearm and hand NEUROLOGICAL: Cranial nerves grossly intact. Normal speech, normal gait. Normal sensory, motor, and reflex exams. PSYCH: Normal mood, normal affect. SKIN: Large abscess with swelling and induration to the right arm and forearm with swelling to the hand. TRAVEL OUTSIDE OF THE [place] IN LAST 30 DAYS: No - HPI Patient complains to provider of: Tender/swollen area Onset: Other - 4 days Onset/Duration: Gradual, Worse Quality of pain: Sharp, Throbbing Severity: Severe Pain Level: 5 Skin Character: Abscess Skin Temperature: Warm Quality of rash: Painful Identify cause: Yes - Heroin IV site Exacerbated by: Walking Relieved by: Denies Similar symptoms previously: Yes Recently seen / treated by doctor: No - Related Data Allergies/Adverse Reactions: No Known Allergies Allergy (Verified 06/23/20 05:30) Past Medical History - General Information source: Patient - Social History Smoking Status: Current Every Day Smoker Cigarette use (# per day): Yes - 1-1/2 ppd Smoking Education Provided: Yes - 3 min Frequency of alcohol use: None Drug Abuse: Heroin Lives with: Family Family History: Reviewed & Not Pertinent, Arthritis, Hyperlipidemia, Hypertension Patient has suicidal ideation: No Patient has homicidal ideation: No - Past Medical History Cardiac Medical History: Reports: Hx DVT Pulmonary Medical History: Reports: Hx Asthma EENT Medical History: Reports: None Neurological Medical History: Reports: None Endocrine Medical History: Reports: None Renal/ Medical History: Reports: None Malignancy Medical History: Reports None GI Medical History: Reports: None Musculoskeletal Medical History: Reports Hx Arthritis, Reports Hx Musculoskeletal Deformity, Reports Hx Musculoskeletal Trauma Skin Medical History: Reports Hx Cellulitis Psychiatric Medical History: Reports: Hx Anxiety, Hx Bipolar Disorder, Hx Depression Traumatic Medical History: Reports: None Infectious Medical History: Reports: None Past Surgical History: Reports: Hx Orthopedic Surgery - L4 L5 FUSION 2010, hardware removed from the spine due to infection - Immunizations Immunizations up to date: Yes Hx Diphtheria, Pertussis, Tetanus Vaccination: Yes - unknown Review of Systems - Review of Systems Neurological/Psychological: No symptoms reported Physical Exam - Vital signs Vitals: Temp Pulse Resp BP Pulse Ox 98.4 F 95 18 140/98 H 100 09/09/20 22:04 09/09/20 22:04 09/09/20 22:04 09/09/20 22:04 09/09/20 22:04 Course - Re-evaluation Re-evalutation: 09/10/20 08:37 Patient was treated with IV clindamycin discharged home with prescription for 50 mg of clindamycin 3 times a day. His abscess was I&D in the emergency room and a wound culture sent labs and blood cultures were also sent. I did review the labs and x-ray report with the patient. I did instruct the patient that he needed to take the clindamycin as prescribed and return in 48 hours for reassessment of abscess and remove packing. Patient verbalized understanding and agreement with treatment plan and patient was discharged home. Did discuss the labs and abscess with Dr. Rodrigez and he recommended this treatment. - Vital Signs Vital signs: Temp Pulse Resp BP Pulse Ox 98.8 F 92 18 133/70 H 100 09/10/20 06:29 09/10/20 06:29 09/10/20 06:29 09/10/20 06:29 09/10/20 06:29 - Laboratory Results Result Diagrams: 09/10/20 04:34 09/10/20 04:34 Laboratory Results Interpreted: 09/10/20 04:34 WBC 10.9 H RBC 4.10 L Hgb 12.0 L Hct 34.8 L RDW 14.4 H Eos % (Auto) 6.2 H Absolute Eos (auto) 0.7 H Critical Laboratory Results Reviewed: No Critical Results - Radiology Results Critical Radiology Results Reviewed: No Critical Results Procedures - Incision and Drainage Right forearm Time completed: 05:53 Type: Complex Anesthetic type: 2% Lidocaine mL's of anesthetic: 8 Blade size: 11 I&D procedure: Shurclens applied Incision Method: Incision made by scalpel Discharge - Discharge Clinical Impression: Heroin abuse, IV drug abuse, Abscess of forearm, right, Cellulitis of forearm, right Condition: Stable Disposition: HOME, SELF-CARE Additional Instructions: ABSCESS: You have an abscess (boil). This a pus-forming infection, usually due to staph. Some boils may be left to drain on their own, but most require lancing. From the time the tender lump first appears, it may be three or four days before the abscess is ready to donny. Local heat and rest help at this stage of treatment. An antibiotic may prevent spread of the infection. Once the abscess is opened, packing may be placed into it. This is done so pus is not sealed inside by premature closure of the cavity. The packing will be removed at your follow-up visit or you may be advised to remove it yourself at home. Sometimes this packing must be replaced a few times during healing. The wound will heal with surprisingly little scar. Depending on the size and location of an abscess, healing can take one to four weeks. You may shower and wash the area around the incision site two or three times a day. Antibiotics may be prescribed, but are usually not necessary after an abscess has been drained. If you develop fever, chills, worsening pain, or increasing swelling in the area, call the doctor or return immediately. POST INCISION AND DRAINAGE: You have had an incision made to allow drainage of an abscess. The incision must remain open so that pus and debris can drain from the wound. If the abscess cavity is large, packing is placed. This keeps the tissues from collapsing and trapping pus inside, while the body shrinks the cavity. The packing may need to be replaced every day or two. The physician will instruct you on the packing. Keep a bulky dressing over the area. Replace it if it becomes saturated with blood or pus. Do not disturb the packing (if present). You may shower and cleanse the area with gentle soap and warm water two or three times a day. Local warmth may be soothing, and may promote faster healing. Return if you develop high fever or chills, or if you note spreading redness, increasing swelling, or increasing tenderness. CELLULITIS: You have an infection of your skin and underlying soft tissues called cellulitis. This is due to bacteria, which can enter through any break in the skin, or even through an irritated hair follicle. Untreated, cellulitis will usually worsen and may form an abscess which requires draining. Usually, warm packs or warm soaks, and elevation of the infected area are recommended. You should start getting better within 24 to 36 hours. Most infections respond quickly to the right medication. Follow-up care is important, however, to check for abscess (boil) formation, unsuspected foreign body, or resistant infection. If you develop fever, chills, or if the area of infection is becoming rapidly more swollen or painful, call the doctor at once. Clindamycin You have been given a prescription for the antibiotic clindamycin. It is often prescribed for infections in the mouth, such as dental infections or abscesses, and for skin infections due to MRSA. It's important that you take all the medication, unless instructed otherwise by your physician. Failure to complete the entire course can result in relapse of your condition. Common side effects of antibiotics include nausea, intestinal cramping, or diarrhea. Women may develop vaginal yeast infections, and babies can get yeast (thrush) in the mouth following the use of antibiotics. Contact your physician if you develop significant side effects from this medication. Allergy to this antibiotic can result in hives, wheezing, faintness, or itching. If symptoms of allergy occur, stop the medication and call the doctor. FOLLOW-UP CARE: Most simple abscesses will not require a follow up visit. If you had packing placed in the abscess, remove it as instructed by the physician. If you have been referred to a physician for follow-up care, call the physicians office for an appointment as you were instructed or within the next two days. If you experience worsening or a significant change in your symptoms, return to the Emergency Department at any time for re-evaluation. Prescriptions: Clindamycin HCl [Cleocin HCl] 450 mg PO TID #90 capsule Forms: Elevated Blood Pressure
[2020-09-10] MEDS ORDERED: LIDOCAINE 2% INJ (20 MG/ML) 20 ML MDV INJ ONE (04:48)
[2020-09-10] MEDS ORDERED: CLINDAMYCIN 900 MG/D5W RTU 900 MG/50 ML RTUPB IV ONE (04:49)
[2020-09-10 05:01] LABS: ABSOLUTE BASOPHILS # (AUTO) 0.1 10^3/uL (0.0-0.2); ABSOLUTE EOSINOPHILS # (AUTO) 0.7 10^3/uL (0.0-0.6); ABSOLUTE LYMPHOCYTES (AUTO) 2.7 10^3/uL (0.5-4.7); ABSOLUTE MONOCYTES (AUTO) 1.1 10^3/uL (0.1-1.4); ABSOLUTE NEUT (AUTO) 6.4 10^3/uL (1.7-8.2); BASOPHILS % (AUTO) 0.9 % (0-2); EOSINOPHILS % (AUTO) 6.2 % (0-6); HEMATOCRIT 34.8 % (37.9-51.0); LYMPHOCYTES % (AUTO) 24.4 % (13-45); MEAN CORPUSCULAR HEMOGLOBIN 29.4 pg (27.0-33.4); MEAN CORPUSCULAR HGB CONC 34.6 g/dL (32.0-36.0); MEAN CORPUSCULAR VOLUME 85 fl (80-97); PLATELET COUNT 376 10^3/uL (150-450); RED CELL DISTRIBUTION WIDTH 14.4 % (11.5-14.0); SEGMENTED NEUTROPHILS % (AUTO) 58.5 % (42-78); TOTAL CELLS COUNTED % (AUTO) 100 %; WHITE BLOOD COUNT 10.9 10^3/uL (4.0-10.5)
[2020-09-10 05:21] LABS: ALBUMIN 3.8 g/dL (3.5-5.0); ALKALINE PHOSPHATASE 111 U/L (38-126); ANION GAP 6 (5-19); ASPARTATE AMINO TRANSFERASE 32 U/L (17-59); BILIRUBIN,DIRECT 0.3 mg/dL (0.0-0.4); BILIRUBIN,TOTAL 0.7 mg/dL (0.2-1.3); BLOOD UREA NITROGEN 13 mg/dL (7-20); CALCIUM 9.5 mg/dL (8.4-10.2); CARBON DIOXIDE 29 mmol/L (22-30); CHLORIDE 105 mmol/L (98-107); GLUCOSE 109 mg/dL (75-110); POTASSIUM 3.9 mmol/L (3.6-5.0); TOTAL PROTEIN 7.9 g/dL (6.3-8.2)
[2020-09-10 06:35] VITALS: BP 133/70
== END 2020-09-10 06:29 | disposition home or self-care (01) ==
LOC: ER 21:59
DX: L02.413 Cutaneous abscess of right upper limb (principal); L03.113 Cellulitis of right upper limb; F17.210 Nicotine dependence, cigarettes, uncomplicated; Z59.0 Homelessness; Z86.718 Personal history of other venous thrombosis and embolism; Z98.1 Arthrodesis status
CPT/HCPCS: 99406; 99284; 96365; 36415; 87040; 87070; 87205; 85025; 87075; 87077; 80053; 73090; 10061; J3490 ×2; 87186

== ENCOUNTER 2020-09-12 15:37 | Emergency (ER) | payer SELFPAY ==
[2020-09-12] MEDS ORDERED: LIDOCAINE 1%/EPINEPHRINE INJ 20 ML VIAL ONE (17:19)
[2020-09-12 17:35] VITALS: BP 137/84
--- NOTE | 2020-09-12 17:36 | ER Document Report ---
HPI - HPI Time Seen by Provider: 09/12/20 17:13 Pain Level: 5 Notes: 35-year-old male presents to the emergency room for packing change to his right forearm that he had lanced on September 10, 2020 he states from a bug bite but has admitted he does IV heroin, was placed on clindamycin. Patient has been taking his antibiotics, started yesterday. Reports that wound is getting much better. He is here for packing change. Denies fevers, chills, chest pain,palpitations, shortness of breath, dyspnea, nausea, vomiting, diarrhea, abdominal pain, LH, dizziness, syncope, headaches, wheezing,weakness, bowel or bladder dysfunction, saddle anesthesia, numbness or tingling in bilateral upper or lower extremities equally, muscle paralysis, weakness in bilateral upper or lower extremities equally - REPRODUCTIVE Reproductive: DENIES: : - MUSCULOSKELETAL Musculoskeletal: REPORTS: Extremity pain - wound to right Forearm Past Medical History - General Information source: Patient - Social History Smoking Status: Current Every Day Smoker Chew tobacco use (# tins/day): No Frequency of alcohol use: None Drug Abuse: Heroin Family History: Reviewed & Not Pertinent, Arthritis, Hyperlipidemia, Hypertension - Past Medical History Cardiac Medical History: Reports: Hx DVT Pulmonary Medical History: Reports: Hx Asthma Renal/ Medical History: Denies: Hx Peritoneal Dialysis Musculoskeletal Medical History: Reports Hx Arthritis, Reports Hx Musculoskeletal Deformity, Reports Hx Musculoskeletal Trauma Skin Medical History: Reports Hx Cellulitis Psychiatric Medical History: Reports: Hx Anxiety, Hx Bipolar Disorder, Hx Depression Past Surgical History: Reports: Hx Orthopedic Surgery - L4 L5 FUSION 2010, hardware removed from the spine due to infection - Immunizations Immunizations up to date: Yes Hx Diphtheria, Pertussis, Tetanus Vaccination: Yes - unknown Vertical Provider Document - CONSTITUTIONAL Agree With Documented VS: Yes Exam Limitations: No Limitations General Appearance: WD/WN Notes: MEDICATIONS: I agree with the patient medications as charted by the RN. ALLERGIES: I agree with the allergies as charted by the RN. PAST MEDICAL HISTORY/PAST SURGICAL HISTORY: Reviewed and agree as charted by RN. SOCIAL HISTORY: Reviewed and agree as charted by RN. FAMILY HISTORY: No significant familial comorbid conditions directly related to patient complaint EXAM: Reviewed vital signs as charted by RN. PHYSICAL EXAMINATION:reviewed vital signs by RN GENERAL: Well-appearing, well-nourished and in no acute distress. HEAD: Atraumatic, normocephalic. EYES: Pupils equal round and reactive to light, extraocular movements intact, sclera anicteric, conjunctiva are normal. ENT: Nares patent, oropharynx clear without exudates. Moist mucous membranes. NECK: Normal range of motion, supple without lymphadenopathy LUNGS: Breath sounds clear to auscultation bilaterally and equal. No wheezes rales or rhonchi. HEART: Regular rate and rhythm without murmurs ABDOMEN: Soft, nontender, nondistended abdomen. No guarding, no rebound. No masses appreciated. Musculoskeletal: Normal range of motion, no pitting or edema. No cyanosis. NEUROLOGICAL: Cranial nerves grossly intact. Normal speech, normal gait. Normal sensory, motor exams PSYCH: Normal mood, normal affect. SKIN: Warm, Dry, normal turgor, no rashes or lesions noted. Right forearm, volar aspect with 1 cm incision with packing. No surrounding erythema induration or warmth to touch. No surrounding lymphadenopathy. Radial pulses +2 bilaterally equally. - INFECTION CONTROL TRAVEL OUTSIDE OF THE [place] IN LAST 30 DAYS: No Course - Re-evaluation Re-evalutation: 09/12/20 17:39 Afebrile vital stable no distress. Nurses notes reviewed. Verbal consent given for packing change packing was removed, site cleaned with high-pressure irrigation 200 mL. 1/4th iodoform packing proximately 3 cm packed into right forearm that was soaked in lidocaine 1% with epi. Site dressed with sterile dressing. Patient tolerated procedure without any issues. Verbalized to return in 2 days for packing change and to continue taking clindamycin as directed. Patient verbalized understanding of this plan of care. After performing a Medical Screening Examination, I estimate there is LOW risk for OPEN FRACTURE, COMPARTMENT SYNDROME, TENDON RUPTURE, ACUTE NEUROVASCULAR INJURY, or RETAINED FOREIGN BODY, thus I consider the discharge disposition reasonable. Also, there is no evidence or peritonitis, sepsis, or toxicity. I have reevaluated this patient multiple times and no significant life threatening changes are noted. The patient and I have discussed the diagnosis and risks, and we agree with discharging home with close follow-up with the understanding that symptoms and presentations can change. We also discussed returning to the Emergency Department immediately if new or worsening symptoms occur. We have discussed the symptoms which are most concerning (e.g., changing or worsening pain, fever, numbness, weakness, cool or painful digits) that necessitate immediate return. - Vital Signs Vital signs: Temp Pulse Resp BP Pulse Ox 98.2 F 86 20 123/85 99 09/12/20 16:02 09/12/20 16:02 09/12/20 16:02 09/12/20 16:02 09/12/20 16:02 - Laboratory Results Critical Laboratory Results Reviewed: No Critical Results - Radiology Results Critical Radiology Results Reviewed: No Critical Results Discharge - Discharge Clinical Impression: Cellulitis of forearm, right, Abscess of forearm, right, Encounter for assessment of wound Condition: Stable Disposition: HOME, SELF-CARE Instructions: Clindamycin ([facility]) Additional Instructions: Return in 2 days for packing change. Continue to take clindamycin as directed and prescribed for you. You can alternate between Tylenol and ibuprofen for p ain control. Monitor for any signs of infection such as redness, swelling, drainage. Return immediately for any new or worsening symptoms. Follow up with primary care provider, call tomorrow to make followup appointment. Referrals: TAWANA ROGER MD [[facility]ED STAFF] - Follow up as needed
== END 2020-09-12 17:35 | disposition home or self-care (01) ==
LOC: ER 15:37
DX: L02.413 Cutaneous abscess of right upper limb (principal); L03.113 Cellulitis of right upper limb; Z98.1 Arthrodesis status
CPT/HCPCS: 99281; 10060; J3490

== ENCOUNTER 2020-09-14 13:05 | Emergency (ER) | payer SELFPAY ==
[2020-09-14 13:13] VITALS: BP 136/87
--- NOTE | 2020-09-14 14:48 | ER Document Report ---
HPI - HPI Patient complains to provider of: wound check Time Seen by Provider: 09/14/20 14:43 Pain Level: 3 Context: 35-year-old male presents to the emergency room for wound check to his right forearm. Patient states he was bitten by a bug area was lanced and drained on September 09. Patient returned on 09/12/2019 had it repacked. Taking antibiotics as prescribed. Denies any fevers. No persistent drainage. No pain and no erythema. Patient states he does have a history of IV drug use but did not inject into that area. Has no other concerns or complaints at this time. Associated Symptoms: None Exacerbated by: Denies Relieved by: Denies Similar symptoms previously: No Recently seen / treated by doctor: Yes - Seen in the emergency room on September 09 September 12. - ROS Systems Reviewed and Negative: Yes All other systems reviewed and negative - CONSTITUTIONAL Constitutional: DENIES: Fever - NEURO Neurology: DENIES: Weakness - REPRODUCTIVE Reproductive: DENIES: : - MUSCULOSKELETAL Musculoskeletal: REPORTS: Extremity pain - DERM Skin Color: Erythema Past Medical History - General Information source: Patient - Social History Smoking Status: Current Every Day Smoker Frequency of alcohol use: Occasional Drug Abuse: Heroin Family History: Reviewed & Not Pertinent, Arthritis, Hyperlipidemia, Hypertension - Past Medical History Cardiac Medical History: Reports: Hx DVT Pulmonary Medical History: Reports: Hx Asthma Renal/ Medical History: Denies: Hx Peritoneal Dialysis Musculoskeletal Medical History: Reports Hx Arthritis, Reports Hx Musculoskeletal Deformity, Reports Hx Musculoskeletal Trauma Skin Medical History: Reports Hx Cellulitis Psychiatric Medical History: Reports: Hx Anxiety, Hx Bipolar Disorder, Hx Depres lester Past Surgical History: Reports: Hx Orthopedic Surgery - L4 L5 FUSION 2010, hardware removed from the spine due to infection - Immunizations Immunizations up to date: Yes Hx Diphtheria, Pertussis, Tetanus Vaccination: Yes - unknown Vertical Provider Document - CONSTITUTIONAL Agree With Documented VS: Yes Exam Limitations: No Limitations General Appearance: Mild Distress - INFECTION CONTROL TRAVEL OUTSIDE OF THE [place] IN LAST 30 DAYS: No - HEENT HEENT: Atraumatic, Normocephalic - NECK Neck: Normal Inspection, Supple - RESPIRATORY Respiratory: Breath Sounds Normal, No Respiratory Distress - CARDIOVASCULAR Cardiovascular: Regular Rate, Regular Rhythm - MUSCULOSKELETAL/EXTREMETIES Musculoskeletal/Extremeties: FROM, Tender - Mild tenderness on palpation to the right mid forearm from previous incision and drainage site. Not warm to touch. No active discharge or draining noted. - NEURO Level of Consciousness: Awake, Alert, Appropriate Motor/Sensory: No Motor Deficit, No Sensory Deficit Notes: Positive right radial pulse. Capillary refill less than 3 seconds. - DERM Integumentary: Warm, Dry, Abscess - Well-healing abscess to the right forearm. Packing was removed without difficulty. There is no active discharge or draining noted. It is tender but not warm or erythematous to the touch. Course - Re-evaluation Re-evalutation: 09/14/20 14:51 Packing removed without difficulty. Well-healing wound. Patient was counseled on the importance of completing his antibiotics. Counseled on proper wound care. Patient was given strict return to the emergency room guidelines. Return for any new or worsening symptoms. All questions were answered. Patient verbalized understanding and agrees with plan of care. - Vital Signs Vital signs: Temp Pulse Resp BP Pulse Ox 98.9 F 102 H 18 136/87 H 100 09/14/20 13:08 09/14/20 13:08 09/14/20 13:08 09/14/20 13:08 09/14/20 13:08 - Laboratory Results Critical Laboratory Results Reviewed: No Critical Results - Radiology Results Critical Radiology Results Reviewed: No Critical Results Procedures - Additional Procedures packing removal Time performed: 14:51 Notes: 09/14/20 14:51 Packing removed from right forearm without difficulty. Patient tolerated well. 09/14/20 14:51 Discharge - Discharge Clinical Impression: Abscess of right forearm, Wound check, abscess Condition: Stable Disposition: HOME, SELF-CARE Instructions: MRSA Cellulitis ([facility]) Additional Instructions: Complete your course of antibiotics. Keep wound clean and dry. Outpatient follow-up as needed. Return to the emergency room for any new or worsening symptoms.
== END 2020-09-14 14:55 | disposition home or self-care (01) ==
LOC: ER 13:05
DX: Z48.01 Encounter for change or removal of surgical wound dressing (principal); L02.413 Cutaneous abscess of right upper limb; F11.10 Opioid abuse, uncomplicated; F17.200 Nicotine dependence, unspecified, uncomplicated; J45.909 Unspecified asthma, uncomplicated
CPT/HCPCS: 99281